=== PATIENT | male | born 1975 | race Caucasian/White ===

== ENCOUNTER 2017-12-02 05:48 | Emergency (ER) | END 2017-12-02 07:20 | disposition left against medical advice (07) ==

== ENCOUNTER 2017-12-04 13:55 | Emergency (ER) | END 2017-12-04 17:40 | disposition left against medical advice (07) ==

== ENCOUNTER 2017-12-05 03:22 | Emergency (ER) | END 2017-12-05 08:32 | disposition left against medical advice (07) ==

== ENCOUNTER 2017-12-09 04:17 | Emergency (ER) | END 2017-12-09 04:38 | disposition home or self-care (01) ==

== ENCOUNTER 2017-12-13 09:51 | Emergency (ER) | END 2017-12-13 11:32 | disposition home or self-care (01) ==

== ENCOUNTER 2017-12-14 04:19 | Emergency (ER) | END 2017-12-14 08:38 | disposition left against medical advice (07) ==

== ENCOUNTER 2017-12-18 22:53 | Emergency (ER) | END 2017-12-19 00:55 | disposition left against medical advice (07) ==

== ENCOUNTER 2017-12-20 02:56 | Emergency (ER) | END 2017-12-20 04:30 | disposition home or self-care (01) ==

== ENCOUNTER 2017-12-21 03:39 | Emergency (ER) | END 2017-12-21 04:05 | disposition left against medical advice (07) ==

== ENCOUNTER 2017-12-22 00:50 | Emergency (ER) | END 2017-12-22 02:51 | disposition left against medical advice (07) ==

== ENCOUNTER 2018-01-01 13:53 | Emergency (ER) | END 2018-01-01 15:19 | disposition left against medical advice (07) ==

== ENCOUNTER 2018-01-02 08:16 | Emergency (ER) | END 2018-01-02 12:08 | disposition left against medical advice (07) ==

== ENCOUNTER 2018-01-05 03:30 | Emergency (ER) | END 2018-01-05 04:00 | disposition home or self-care (01) ==

== ENCOUNTER 2018-01-06 10:42 | Emergency (ER) | END 2018-01-06 12:17 | disposition home or self-care (01) ==

== ENCOUNTER 2018-01-12 03:42 | Emergency (ER) | END 2018-01-12 04:26 | disposition home or self-care (01) ==

== ENCOUNTER 2018-01-20 06:22 | Emergency (ER) | END 2018-01-20 08:10 | disposition left against medical advice (07) ==

== ENCOUNTER 2018-01-23 23:14 | Emergency (ER) | END 2018-01-24 00:12 | disposition left against medical advice (07) ==

== ENCOUNTER 2018-02-01 23:36 | Emergency (ER) | END 2018-02-02 00:49 | disposition left against medical advice (07) ==

== ENCOUNTER 2018-02-11 02:42 | Emergency (ER) | END 2018-02-11 04:08 | disposition left against medical advice (07) ==

== ENCOUNTER 2018-02-14 14:47 | Emergency (ER) | END 2018-02-14 16:20 | disposition left against medical advice (07) ==

== ENCOUNTER 2018-02-16 04:40 | Emergency (ER) | END 2018-02-16 05:30 | disposition home or self-care (01) ==

== ENCOUNTER 2018-02-25 02:14 | Emergency (ER) | END 2018-02-25 02:40 | disposition home or self-care (01) ==

== ENCOUNTER 2018-03-03 11:53 | Emergency (ER) | END 2018-03-03 13:04 | disposition left against medical advice (07) ==

== ENCOUNTER 2018-03-05 01:20 | Emergency (ER) | END 2018-03-05 01:30 | disposition home or self-care (01) ==

== ENCOUNTER 2018-03-21 09:07 | Inpatient (IN) | payer OTHER ==
[~2018-03-21] VITALS: Ht 193 cm; Wt 55.0 kg
[~2018-03-21 09:07] MED LIST: ACET500C5 PO; ASPI81TA52 PO; ATOR40TA68 PO; BENZ200C68 PO; BUS5 PO; CEPH-443 PO; CLIN300C10 PO; D-ME473S2 PO; HALO5TAB23 PO; HYDR-4011 PO; IBUP-1542 PO; IBUP800T48 PO; LISI40TA3 PO; MTF1000T PO; SULF1TAB31 PO; TRAM50TA2 PO
[2018-03-21] MEDS ORDERED: IBUPROFEN 800 MG TAB PO ONE (09:30)
[2018-03-21] MEDS ORDERED: BUSP10TA2 PO (09:49)
[2018-03-21] MEDS ORDERED: SOD CHLORIDE 0.9% 1,000 ML IV STA (09:50)
[2018-03-21] MEDS ORDERED: morphine 4 MG/ML VIAL IV STA (09:53)
--- NOTE | 2018-03-21 11:14 | ERD ---
ER Documentation Chief Complaint Chief Complaint right leg injury x 3 days no KO HPI This is a 43-year-old male who presents to the emergency room for evaluation of left hip pain. The patient states that he slipped and fell approximately 2 days ago denies hitting his head or any loss of consciousness. The patient states that his pain is in the left hip and is been unable to bear weight since this occurred. The patient is a very poor historian and is not answering how he was able to get to the bathroom or feed himself if he was not able to bear weight. He localizes the pain in the left hip and describes as a sharp pain worse with any movement. Patient denies any shortness of breath chest pain nausea vomiting ROS All systems reviewed and are negative except as per history of present illness. Medications Home Meds Reported Medications Buspirone Hcl* (Buspirone Hcl*) 10 Mg Tab, 15 MG PO TID, TAB 03/21/18 Haloperidol* (Haldol*) 5 Mg Tab, 5 MG PO QHS, TAB 10/26/17 Lisinopril* (Lisinopril*) 40 Mg Tablet, 40 MG PO DAILY, #30 TAB 10/26/17 Atorvastatin* (Atorvastatin*) 40 Mg Tablet, 40 MG PO QHS, #30 TAB 10/26/17 Aspirin (Low Dose Aspirin) 81 Mg Tablet.dr, 81 MG PO DAILY, #30 TAB 10/26/17 Metformin* (Glucophage*) 1,000 Mg Tablet, 1000 MG PO BID, #60 TAB 10/17/17 Discontinued Reported Medications Buspirone Hcl* (Buspar*) 5 Mg Tab, 15 MG PO TID, TAB 10/26/17 Discontinued Scripts Ibuprofen* (Motrin*) 800 Mg Tab, 800 MG PO Q6, #20 TAB Prov:JONNIE HERNANDEZ PA-C 02/25/18 Dextromethorphan Hb-Promethazine Hcl* (Promethazine DM* Syrup) 473 Ml Syrup, 5 ML PO Q6 PRN for COUGH, #100 ML Prov:JONNIE HERNANDEZ PA-C 02/25/18 Benzonatate* (Benzonatate*) 200 Mg Capsule, 200 MG PO TID PRN for COUGH, #15 CAP Prov:JONNIE HERNANDEZ PA-C 02/25/18 Ibuprofen* (Motrin*) 800 Mg Tab, 800 MG PO Q6H PRN for PAIN AND OR ELEVATED TEMP, #30 TAB Prov:JEREMIAH PENAC 02/16/18 Clindamycin Hcl* (Clindamycin Hcl*) 300 Mg Capsule, 300 MG PO TID for 10 Days, CAP Prov:JONNIE GEE S. 02/11/18 Sulfamethoxazole/Trimethoprim* (Bactrim Ds* Tablet) 1 Each Tablet, 1 TAB PO BID, #14 TAB Prov:JONINE EGE S. 02/11/18 Ibuprofen* (Motrin*) 600 Mg Tab, 600 MG PO Q6, #30 TAB Prov:JOSE MARTINEZ NP 01/12/18 Acetaminophen* (Tylophen*) 500 Mg Capsule, 1 CAP PO Q6H PRN for PAIN AND OR ELEVATED TEMP, #20 CAP Prov:JOSE MARTINEZ NP 01/05/18 Cephalexin* (Keflex*) 500 Mg Capsule, 500 MG PO QID for 7 Days, CAP Prov:JERICA MOELLERC 01/02/18 Cephalexin* (Keflex*) 500 Mg Capsule, 500 MG PO TID for 7 Days, CAP Prov:RAVI MIRANDAC 12/13/17 Acetaminophen* (Tylophen*) 500 Mg Capsule, 1 CAP PO Q6H PRN for PAIN AND OR ELEVATED TEMP, #20 CAP Prov:RAVI MIRANDAC 12/13/17 Tramadol HCl (Tramadol HCl) 50 Mg Tablet, 50 MG PO Q6 PRN for PAIN, #7 TAB Prov:JOSE MARTINEZ NP 12/09/17 Ibuprofen* (Motrin*) 600 Mg Tab, 600 MG PO Q6, #30 TAB Prov:AYDEN ROGERSC 11/28/17 Hydrocodone/Acetaminophen ([place] 5-325 Tablet) 1 Each Tablet, 1 EACH PO DAILY, #10 TAB Prov:EDWIGE BILL MD 11/08/17 Ibuprofen* (Motrin*) 600 Mg Tab, 600 MG PO Q6H PRN for PAIN AND OR ELEVATED TEMP, #30 TAB Prov:NATHANIEL MCKEON MD 11/04/17 Cephalexin* (Keflex*) 500 Mg Capsule, 500 MG PO QID for 7 Days, CAP Prov:NATHANIEL MCKEON MD 11/04/17 Sulfamethoxazole/Trimethoprim* (Bactrim Ds* Tablet) 1 Each Tablet, 1 TAB PO BID, #14 TAB Prov:NATHANIEL MCKEON MD 11/04/17 Allergies Allergies: Coded Allergies: latex (Unverified Allergy, Unknown, 02/16/18) PMhx/Soc History of Surgery: No Anesthesia Reaction: No Hx Neurological Disorder: No Hx Respiratory Disorders: No Hx Cardiac Disorders: No Hx Psychiatric Problems: No Hx Miscellaneous Medical Probl: No Hx Alcohol Use: No (unknown) Hx Substance Use: No (unknown) Hx Tobacco Use: No (unknown) Physical Exam Vitals Vital Signs Date Temp Pulse Resp B/P (MAP) Pulse Ox O2 O2 Flow FiO2 Time Delivery Rate 03/21/18 97.5 70 18 153/83 97 09:13 (106) Physical Exam INITIAL VITAL SIGNS: Reviewed by me GENERAL: The patient is well developed and appropriate for usual state of health in no apparent distress HEENT: Pupils equal, round, and reactive to light. EOMI. There is no scleral icterus. NECK: C-spine is soft and supple, there is no meningismus. There is no cervical lymphadenopathy. LUNGS: Clear to auscultation bilaterally. There are no rales, wheezes or rhonchi. HEART: Regular rate and rhythm, no murmurs, clicks, rubs or gallops. ABDOMEN: Soft, non-tender, non-distended. There are bowel sounds in all four quadrants. No rebound or guarding. EXTREMITIES: No shortening or external rotation, there is no peripheral cyanosis or edema. No focal swelling or erythema. NEUROLOGICAL: The patient moves all four extremities with 5/5 strength. Cranial nerves II - XII are intact. Normal gait. Alert and oriented SKIN: There is no apparent rash or petechiae. HEME/LYMPHATIC: There is no evidence of excessive bruising or lymphedema. PSYCHIATRIC: The patient does not appear anxious or depressed. Result Diagram: 03/21/18 1029 03/21/18 1029 Results 24 hrs Laboratory Tests Test 03/21/18 10:29 White Blood Count 7.5 10^3/ul Red Blood Count 5.12 10^6/ul Hemoglobin 13.1 g/dl Hematocrit 41.1 % Mean Corpuscular Volume 80.3 fl Mean Corpuscular Hemoglobin 25.6 pg Mean Corpuscular Hemoglobin Concent 31.9 g/dl Red Cell Distribution Width 15.6 % Platelet Count 243 10^3/UL Mean Platelet Volume 10.0 fl Immature Granulocytes % 0.500 % Neutrophils % 69.0 % Lymphocytes % 15.6 % Monocytes % 10.7 % Eosinophils % 3.7 % Basophils % 0.5 % Nucleated Red Blood Cells % 0.0 /100WBC Immature Granulocytes # 0.040 10^3/ul Neutrophils # 5.2 10^3/ul Lymphocytes # 1.2 10^3/ul Monocytes # 0.8 10^3/ul Eosinophils # 0.3 10^3/ul Basophils # 0.0 10^3/ul Nucleated Red Blood Cells # 0.0 10^3/ul Prothrombin Time 13.5 Sec Prothrombin Time Ratio 1.1 INR International Normalized Ratio 1.02 Activated Partial Thromboplast Time 28.0 Sec Sodium Level 142 mmol/L Potassium Level 3.5 mmol/L Chloride Level 101 mmol/L Carbon Dioxide Level 31 mmol/L Anion Gap 10 Blood Urea Nitrogen 14 mg/dl Creatinine 0.55 mg/dl Est Glomerular Filtrat Rate mL/min > 60 mL/min Glucose Level 120 mg/dl Calcium Level 9.7 mg/dl Total Bilirubin 0.9 mg/dl Direct Bilirubin 0.00 mg/dl Indirect Bilirubin 0.9 mg/dl Aspartate Amino Transf (AST/SGOT) 27 IU/L Alanine Aminotransferase (ALT/SGPT) 36 IU/L Alkaline Phosphatase 161 IU/L Troponin I < 0.012 ng/ml Total Protein 7.8 g/dl Albumin 4.2 g/dl Globulin 3.60 g/dl Albumin/Globulin Ratio 1.16 Current Medications Medications Dose Sig/[place] Start Time Status Last (Trade) Ordered Route PRN Stop Time Admin Dose Reason Admin Ibuprofen 800 mg ONCE ONCE 03/21/18 DC 03/21/18 (Motrin) PO 09:30 09:37 03/21/18 09:31 Sodium 1,000 ml @ Q1H STAT 03/21/18 DC 03/21/18 Chloride 1,000 mls/hr IV 09:50 10:40 03/21/18 10:49 Morphine 4 mg ONCE STAT 03/21/18 DC 03/21/18 Sulfate IV 09:53 10:41 (morphine) 03/21/18 09:54 Procedures/MDM X-ray Hip 2V Interpreted by me: Bones: Left intertrochanteric fracture Joints: [No dislocation] Foreign body: [None] Chest X-ray 1V Interpreted by me: Soft Tissue: No acute abnormalities Bones: No acute abnormalities Mediastinum/Cardiac Silhouette/Lungs: [No acute abnormalities] EKG: Rate/Rhythm: Sinus bradycardia QRS, ST, T-waves: [No changes consistent w/ acute ischemia] Impression: Sinus bradycardia This 43-year-old male presents to the ER for evaluation of left hip pain. On my evaluation the patient had no shortening or external rotation of the hip however he was complaining of severe pain and had limited range of motion. I did obtain an x-ray which shows a left-sided intertrochanteric fracture. This patient denies having any previous medical problems however his medical record shows the patient has been seen in the emergency room greater than 40 times this year alone. I have contacted her orthopedic surgeon production engine repairer Dr. Alvarado who states he will evaluate the patient. The patient will be admitted at this time and will be placed on the [facility] floor under the care of Dr. Neely. Critical Care: Excluding all billable procedures Time: 44 minutes Treatments/Evaluations: Close monitoring and treatment of unstable vital signs, cardiorespiratory, and neurologic status, while maintaining tight balance of fluid, respiratory, and cardiac interventions. Departure Diagnosis: Primary Impression: Intertrochanteric fracture of left femur Additional Impressions: Pain of left leg Sinus bradycardia Condition: TORI Squires DO Mar 21, 2018 11:14
[2018-03-21] MEDS ORDERED: ONDANSETRON 4 MG INJ IV PRN ×2 (11:30→12:30)
[2018-03-21] MEDS ORDERED: ACETAMINOPHEN 325 MG TAB PO PRN (11:30)
[2018-03-21] MEDS ORDERED: SOD CHLORIDE 0.45% 1,000 ML IV SCH (12:08)
--- NOTE | 2018-03-21 12:24 | HP ---
Date/Time of Note Date/Time of Note DATE: 03/21/18 TIME: 12:07 Assessment/Plan VTE Prophylaxis Pharmacological prophylaxis: NA/contraindicated Pharm contraindication: surgical contra Lines/Catheters IV Catheter Type (from Nrs): Saline Lock Assessment/Plan Assessment/Plan 43 yo man history of NIDDM presents with L IT hip fracture #Hip fracture - Per XR hip. Pending CT pelvis to further evaluate. - Dr. Alvarado consulted. - IV dilaudid for pain control - NPO, IV fluids. - Patient reports ability to walk up 1 flight of stairs without chest pain or dyspnea, so he has at least 4 METS. - RCRI 0 (diabetes is not insulin-dependent). He is at 0.4% risk for major intraoperative event. - Overall the patient is medically optimized for surgery and needs no further cardiac or medical workup prior to OR. - Will hold aspirin and defer antiplatelet and anticoag management to ortho preference for now. #diabetes - HgbA1C 7.5 - sliding scale insulin - Hold home metformin #Psych disorder - Cont home buspirone and haldol #HTN - Cont home lisinopril #Dyslipidemia - Cont home statin Result Diagram: 03/21/18 1029 03/21/18 1029 HPI/ROS Admit Date/Time Admit Date/Time Mar 21, 2018 Hx of Present Illness Mr. Shields is a homeless 43 yo man with diabetes who presents with L hip IT fracture. On 03/17 he was with a friend cleaning some windows on a ladder or scaffold. He fell off and felt hip pain and was unable to move the hip or walk. He was unable to come into the hospital until today. He is a poor historian and is unable to clarify why he didn't come to the ED sooner. In the ED he wa afebrile, vital signs stable. Labs unremarkable. XR L hip notable for L IT fracture. Dr. Alvarado with orthopedic surgery notified. ROS He denies recent fever, chills, dysphagia, sore throat, SOB, cough, chest pain/pressure/palpitations, diarrhea, constipation, nausea, vomiting, dysuria. He reports he can walk up a flight of stairs without chest pain or pressure. PMH/Family/Social Past Medical History non-insulin dependent diabetes (previously on insulin) dyslipidemia psychiatric disorder, unspecified. Medications Current Medications Ondansetron HCl (Zofran Inj) 4 mg BRIDGE ORDER PRN IV NAUSEA AND/OR VOMITING; Start 03/21/18 at 11:30; Stop 03/22/18 at 11:29 Acetaminophen (Tylenol Tab) 650 mg ER BRIDGE PRN PO MILD PAIN(1-3)OR ELEVATED TEMP; Start 03/21/18 at 11:30; Stop 03/22/18 at 11:29 Coded Allergies: latex (Unverified Allergy, Unknown, 02/16/18) Past Surgical History Mandible fixation after jaw fracture Oct 22 2017. Family History Significant Family History: no pertinent family hx Social History Alcohol Use: occasionally Smoking Status: Light tobacco smoker (estimates 1 pack per month) Drug Use: cocaine (Currently uses marijuna. Formerly used cocaine, meth, and heroin. Denies ever using IV drugs, says he smoked heroin. ), marijuana Exam/Review of Systems Vital Signs Vitals Vital Signs Date Temp Pulse Resp B/P (MAP) Pulse Ox O2 O2 Flow FiO2 Time Delivery Rate 03/21/18 97.5 70 18 153/83 97 09:13 (106) Exam Exam Gen: Well appearing well developed man in no acute distress. Eyes: PERRL, no icterus HEENT: Clear oropharynx. Minimal jaw range of motion. Moist mucous membranes. Neck: Supple, no lymphadenopathy. JVP visible with estimated CVP 7 mmHg Card: Regular rate and rhythm, no murmurs Pulm: Clear to auscultation bilaterally Abd: Soft, nontender, nondistended. Ext: L hip minimal tenderness, minimal deformity. Peripherally neurovascular intact. Skin: Circular discoid esposito on arms and legs symmetrically. JALIL CHERRY MD Mar 21, 2018 12:20
[2018-03-21] MEDS ORDERED: NACL 0.9% 3 ML SYG IV SCH (12:30)
[2018-03-21] MEDS ORDERED: morphine 2 MG INJ IV PRN (12:30)
[2018-03-21] MEDS ORDERED: GLUCOSE GEL 15 GRAM TUBE BUCCAL PRN (13:00)
[2018-03-21] MEDS ORDERED: DEXTROSE 50% 50 ML SYRINGE IV PRN ×2 (13:00)
[2018-03-21] MEDS ORDERED: GLUCAGON 1 MG INJ IM PRN (13:00)
[2018-03-21] MEDS: BUSPIRONE 10 MG TAB PO SCH ×2 (13:00→20:16)
[2018-03-21] MEDS ORDERED: GLUCOSE GEL 15 GRAM TUBE PO PRN ×2 (13:00)
[2018-03-21 13:13] VITALS: BP 160/92; PULSE 58; RESP 18
[2018-03-21 13:33] VITALS: Ht 193 cm; Wt 55.0 kg
--- NOTE | 2018-03-21 13:49 | NUR ---
NURSES NOTES: ADMITTED 43 YO MALE FROM ER FOR C/O SEVERE LEFT HIP PAIN S/P FALL FROM A WINDOW AT A FRIEND'S APARTMENT. PT A/O X4. NO SOB NOTED. PT COMFORTABLE AT REST. RECEIVED CALL FROM DR. REENA Ramos/ ORDER RECEIVED, PLAN FOR SURGERY TOMORROW AT 1100 , TO KEEP PT NPO AFTER MN. DR. CHERRY MADE AWARE.. PT STARTED ON CARB CONTROL DIET , INSTRUCTED TO KEEP NPO AFTER MN. PT VERBALIZED UNDERSTANDING WELL. PT INFORMED RE: PLAN OF CARE AND PAIN MANAGEMENT. PT ORIENTED TO ROOM SETTING, CALL LIGHT USAGE AND NO SMOKING POLICIES. CALL LIGHT WITHIN REACH. SAFETY PRECAUTIONS ESTABLISHED.
[2018-03-21] MEDS: morphine SULFATE/PF (2 MG/2 ML) SYG IV PRN ×2 (14:34→20:15)
--- NOTE | 2018-03-21 18:31 | NUR ---
SHIFT SUMMARY: NO SIGNIFICANT CHANGE OF CONDITION. PAIN MEDICATION GIVEN NEEDED W/ RELIEF. SEEN BY DR. VALLES , IN [place] AT BEDSIDE PT AWARE OF PLAN OF CARE. INSTRUCTED TO KEEP NPO AFTER MN FOR SCHEDULED SURGERY TOMORROW. HOURLY ROUNDING ESTABLISHED, SAFETY PRECAUTIONS MAINTAINED. CALL LIGHT WITHIN REACH. ALL NEEDS ATTENDED AND RENDERED.
[2018-03-21] MEDS: INSULIN ASPART [NOVOLOG] 3 ML PEN SC SCH ×2 (18:34→20:29)
[2018-03-21 20:00] VITALS: BP 131/69; PULSE 69; RESP 18
[2018-03-21] MEDS: ATORVASTATIN 40 MG TAB PO SCH (20:16)
[2018-03-21] MEDS: SENNA TAB PO SCH (20:16)
[2018-03-21] MEDS: HALOPERIDOL 5 MG TAB PO SCH (21:47)
[2018-03-22] VITALS (13 sets, daily range): BP systolic 114–141; BP diastolic 60–83; PULSE 44–76; RESP 9–42
--- NOTE | 2018-03-22 00:54 | CONS ---
DATE OF ADMISSION: 03/21/2018 DATE OF CONSULTATION: 03/21/2018 TYPE OF CONSULTATION: Orthopedic surgical. HISTORY OF PRESENT ILLNESS: The patient is a 43-year-old male, a homeless person who was admitted on 03/21/2018 when he came to the emergency room complaining of painful limit of motion involving his l eft hip. According to the patient, he was cleaning a house on 03/17/2018 when he fell landing on his left hip. At the beginning, he was able to stand up and walk, but because of the increasing pain, floresita tate came to the emergency room. He is known to have multiple medical problems including diabetes mellitus, unspecified kind of psychi atric disorders, dyslipidemia and hypertension. There was tenderness and swelling around the left hip. Range of motion of the left hip was provoking pain and discomfort; however, there were no obvious shortening or abnormal rotation of the left lowe r extremity. There were no signs of neurovascular compromise involving the left lower extremity. DIAGNOSTIC STUDIES: X-rays of the left hip was strongly suggestive of intertrochanteric fracture of the left hip which is undisplaced and CT scan confirms the presence of intertrochanteric fracture of the left hip. DIAGNOSTIC IMPRESSION: Intertrochanteric fracture of the left hip. TREATMENT PLAN: To surgery for open reduction and internal fixation of the left hip fracture. Dictated By: NIECY VALLES MD IK/NTS Conf#: [id number] DID#: [id number] CC: JALIL CHERRY MD;*End*
[2018-03-22] MEDS: ACCU-CHEK XX SCH (02:00)
[2018-03-22] MEDS: morphine SULFATE/PF (2 MG/2 ML) SYG IV PRN ×2 (02:24→08:04)
[2018-03-22] MEDS ORDERED: PANTOPRAZOLE (EC) 40 MG TAB PO SCH (06:00)
--- NOTE | 2018-03-22 06:36 | NUR ---
END OF SHIFT SUMMARY Received patient from AM shift on 03/21 at 1920. Patient is alert and oriented x4. Complained of pain on left hip. Pain is relieved with PRN pain medication. Vital signs WNL. Accucheck done. Insulin administered as ordered. Patient is kept on NPO after midnight. Non weight bearing on left lower extremity. Patient is aware about the ORIF procedure scheduled for today (03/22). Fall precautions initiated. Bed alarm is on, side rails x2, bed in lowest position, call light within reach. No falls during shift. All needs attended. Will endorse to oncoming shift.
[2018-03-22] MEDS: INSULIN ASPART [NOVOLOG] 3 ML PEN SC SCH ×4 (08:00→21:00)
[2018-03-22] MEDS: SENNA TAB PO SCH ×2 (09:00→21:19)
[2018-03-22] MEDS: LISINOPRIL 20 MG TAB PO SCH (09:00)
[2018-03-22] MEDS: BUSPIRONE 10 MG TAB PO SCH ×3 (09:00→21:20)
[2018-03-22] MEDS ORDERED: INFLUENZA VIRUS VACCINE 0.5 ML (DISPENSING) IM* ONE (10:00)
--- NOTE | 2018-03-22 12:04 | HPN ---
Date/Time of Note Date/Time of Note DATE: 03/22/18 TIME: 12:04 Interval H&P Admission Note Pt. seen H&P reviewed: No system changes LUNA VALLES MD Mar 22, 2018 12:04
--- NOTE | 2018-03-22 12:30 | PREAC ---
Date/Time of Note Date/Time of Note DATE: 03/22/18 TIME: 12:28 Anesthesia Eval and Record Evaluation Time Pre-Procedure Interview DATE: 03/22/18 TIME: 12:28 Age 43 Sex male NPO: 8 hrs Preoperative diagnosis Lt Hip fracture Planned procedure Lt Hip ORIF Past Medical History Past Medical History: Includes Cardio: HTN, Dyslipidemia Endo: Diabetes Surgery & Anesthesia Issues No known issue Meds Anticoagulation: Yes Beta Yoli within 24 hr: No Reason Beta Yoli not given: Pt. not on B-Yoli Reported Medications Buspirone Hcl* (Buspirone Hcl*) 10 Mg Tab, 15 MG PO TID, TAB 03/21/18 Haloperidol* (Haldol*) 5 Mg Tab, 5 MG PO QHS, TAB 10/26/17 Lisinopril* (Lisinopril*) 40 Mg Tablet, 40 MG PO DAILY, #30 TAB 10/26/17 Atorvastatin* (Atorvastatin*) 40 Mg Tablet, 40 MG PO QHS, #30 TAB 10/26/17 Aspirin (Low Dose Aspirin) 81 Mg Tablet.dr, 81 MG PO DAILY, #30 TAB 10/26/17 Metformin* (Glucophage*) 1,000 Mg Tablet, 1000 MG PO BID, #60 TAB 10/17/17 Discontinued Reported Medications Buspirone Hcl* (Buspar*) 5 Mg Tab, 15 MG PO TID, TAB 10/26/17 Discontinued Scripts Ibuprofen* (Motrin*) 800 Mg Tab, 800 MG PO Q6, #20 TAB Prov:JONNIE HERNANDEZ PA-C 02/25/18 Dextromethorphan Hb-Promethazine Hcl* (Promethazine DM* Syrup) 473 Ml Syrup, 5 ML PO Q6 PRN for COUGH, #100 ML Prov:JONNIE HERNANDEZ PA-C 02/25/18 Benzonatate* (Benzonatate*) 200 Mg Capsule, 200 MG PO TID PRN for COUGH, #15 CAP Prov:JONNIE HERNANDEZ PA-C 02/25/18 Ibuprofen* (Motrin*) 800 Mg Tab, 800 MG PO Q6H PRN for PAIN AND OR ELEVATED TEMP, #30 TAB Prov:JEREMIAH PENA PA-C 02/16/18 Clindamycin Hcl* (Clindamycin Hcl*) 300 Mg Capsule, 300 MG PO TID for 10 Days, CAP Prov:JONNIE GEE S. 02/11/18 Sulfamethoxazole/Trimethoprim* (Bactrim Ds* Tablet) 1 Each Tablet, 1 TAB PO BID, #14 TAB Prov:JONNIE GEE S. 02/11/18 Ibuprofen* (Motrin*) 600 Mg Tab, 600 MG PO Q6, #30 TAB Prov:JOSE MARTINEZ NP 01/12/18 Acetaminophen* (Tylophen*) 500 Mg Capsule, 1 CAP PO Q6H PRN for PAIN AND OR ELEVATED TEMP, #20 CAP Prov:JOSE MARTINEZ NP 01/05/18 Cephalexin* (Keflex*) 500 Mg Capsule, 500 MG PO QID for 7 Days, CAP Prov:JERICA MOELLER-C 01/02/18 Cephalexin* (Keflex*) 500 Mg Capsule, 500 MG PO TID for 7 Days, CAP Prov:RAVI MIRANDA PA-C 12/13/17 Acetaminophen* (Tylophen*) 500 Mg Capsule, 1 CAP PO Q6H PRN for PAIN AND OR ELEVATED TEMP, #20 CAP Prov:RAVI MIRANDA PA-C 12/13/17 Tramadol HCl (Tramadol HCl) 50 Mg Tablet, 50 MG PO Q6 PRN for PAIN, #7 TAB Prov:JOSE MARTINEZ NP 12/09/17 Ibuprofen* (Motrin*) 600 Mg Tab, 600 MG PO Q6, #30 TAB Prov:AYDEN ROGERS PA-C 11/28/17 Hydrocodone/Acetaminophen ([place] 5-325 Tablet) 1 Each Tablet, 1 EACH PO DAILY, #10 TAB Prov:EDWIGE BILL MD 11/08/17 Ibuprofen* (Motrin*) 600 Mg Tab, 600 MG PO Q6H PRN for PAIN AND OR ELEVATED TEMP, #30 TAB Prov:NATHANIEL MCKEON MD 11/04/17 Cephalexin* (Keflex*) 500 Mg Capsule, 500 MG PO QID for 7 Days, CAP Prov:NATHANIEL MCKEON MD 11/04/17 Sulfamethoxazole/Trimethoprim* (Bactrim Ds* Tablet) 1 Each Tablet, 1 TAB PO BID, #14 TAB Prov:NATHANIEL MCKEON MD 11/04/17 Current Medications Sodium Chloride 1,000 ml @ 100 mls/hr Q10H IV ; Start 03/21/18 at 12:08; Status Hold IV Flush (NS 3 ml) 3 ml PER PROTOCOL IV ; Start 03/21/18 at 12:30 Ondansetron HCl (Zofran Inj) 4 mg Q6H PRN IV NAUSEA AND/OR VOMITING; Start 1 at 12:30 Pantoprazole (Protonix Tab) 40 mg DAILY@06 PO ; Start 03/22/18 at 06:00 Senna (Senokot) 2 tab BID PO Last administered on 03/21/18at 20:16; Admin Dose 2 TAB; Start 03/21/18 at 21:00 Diagnostic Test (Pha) (Accu-Chek) 1 ea 02 XX ; Start 03/22/18 at 02:00 Insulin Aspart (Novolog Insulin Pen) NOVOLOG *MODERATE* ALGORITHM WITH MEALS BEDTIME SC Last administered on 03/21/18at 20:29; Admin Dose 1 UNIT; Start 03/21/18 at 18:00 Atorvastatin Calcium (Lipitor) 40 mg QHS PO Last administered on 03/21/18at 20:16; Admin Dose 40 MG; Start 03/21/18 at 21:00 Buspirone HCl (Buspar) 15 mg TID PO Last administered on 03/21/18at 20:16; Admin Dose 15 MG; Start 03/21/18 at 13:00 Haloperidol (Haldol) 5 mg QHS PO Last administered on 03/21/18at 21:47; Admin Dose 5 MG; Start 03/21/18 at 21:00 Lisinopril (Zestril) 40 mg DAILY PO ; Start 03/22/18 at 09:00 Miscellaneous Information 1 ea NOTE XX ; Start 03/21/18 at 13:00 Glucose (Glutose) 15 gm Q15M PRN PO DECREASED GLUCOSE; Start 03/21/18 at 13:00 Glucose (Glutose) 22.5 gm Q15M PRN PO DECREASED GLUCOSE; Start 03/21/18 at 13:00 Dextrose (D50w Syringe) 25 ml Q15M PRN IV DECREASED GLUCOSE; Start 03/21/18 at 13:00 Dextrose (D50w Syringe) 50 ml Q15M PRN IV DECREASED GLUCOSE; Start 03/21/18 at 13:00 Glucagon (Glucagen) 1 mg Q15M PRN IM DECREASED GLUCOSE; Start 03/21/18 at 13:00 Glucose (Glutose) 15 gm Q15M PRN BUCCAL DECREASED GLUCOSE; Start 03/21/18 at 13:00 Morphine Sulfate (morphine SULFATE (PF)) 4 mg Q4H PRN IV SEVERE PAIN LEVEL 7-10 Last administered on 03/22/18at 08:04; Admin Dose 4 MG; Start 03/21/18 at 15:00 Meds reviewed: Yes Allergies Coded Allergies: latex (Unverified Allergy, Unknown, 02/16/18) Allergies Reviewed: Yes Labs/Studies Labs Reviewed: Reviewed by anesthesiologist Result Diagram: 03/22/18 0523 03/22/1823 Laboratory Tests 03/22/18 05:23 test: N/A Studies: ECG Pre-procedure Exam Last vitals Vital Signs Date Temp Pulse Resp B/P (MAP) Pulse Ox O2 O2 Flow FiO2 Time Delivery Rate 03/22/18 98.0 58 18 125/83 99 Room Air 07:34 (97) Airway: Adequate mouth opening, Adequate thyromental dist Mallampati: Mallampati II Teeth: Normal Lung: Normal Heart: Normal ASA Physical Status ASA physical status: 3 Emergency: E Planned Anesthetic General/MAC: LMA Neuraxial: Spinal Planned Pain Management Sub-arachniod narcotics, Parenteral pain med Pre-operative Attestations Prior to commencing anesthesia and surgery, the patient was re-evaluated, there was verification of: *The patient's identity *The results of appropriate recent lab work and preoperative vital signs *The above evaluation not changing prior to induction *Anesthetic plan, risk benefits, alternative and complications discussed with patient/family; questions answered; patient/family understands, accepts and wishes to proceed. MICHEL CALDERON MD Mar 22, 2018 12:30
[2018-03-22] MEDS ORDERED: MIDAZOLAM 1 MG/ML 2 ML INJ ONE (12:36)
[2018-03-22] MEDS ORDERED: morphine SULFATE/PF (10 MG/10 ML) INJ ONE (12:36)
[2018-03-22] MEDS ORDERED: ROCURONIUM 50 MG INJ ONE (14:21)
[2018-03-22] MEDS ORDERED: ONDANSETRON 4 MG INJ ONE (14:21)
[2018-03-22] MEDS ORDERED: LIDOCAINE 2% (SDV) 5 ML INJ ONE (14:21)
[2018-03-22] MEDS ORDERED: CEFAZOLIN 1 GM INJ ONE (14:21)
[2018-03-22] MEDS ORDERED: PROPOFOL 20 ML ONE (14:21)
--- NOTE | 2018-03-22 14:26 | NUR ---
RECEIVED FROM OR VIA BED S/P ORIF LT. HIP. DRESSING DRY AND INTACT.IV INFUSING RT.AC #20 ANGIOCATH. LT. HIP XRAY DONE. SCD"S ON SAWYER.
[2018-03-22] MEDS ORDERED: HYDROmorphONE 1 MG/5 ML IV SYRINGE IV PRN ×2 (14:30)
[2018-03-22] MEDS ORDERED: DIPHENHYDRAMINE 50 MG INJ IV PRN (14:30)
[2018-03-22] MEDS ORDERED: MEPERIDINE 25 MG INJ IV PRN (14:30)
[2018-03-22] MEDS ORDERED: morphine 4 MG/ML VIAL IV PRN (14:30)
[2018-03-22] MEDS ORDERED: NACL 0.9% 3 ML SYG IV SCH (14:30)
[2018-03-22] MEDS ORDERED: FENTAnyl 50 MCG/ML VIAL IV PRN (14:30)
[2018-03-22] MEDS ORDERED: ONDANSETRON 4 MG INJ IV PRN (14:30)
--- NOTE | 2018-03-22 14:32 | PAC ---
Date/Time of Note Date/Time of Note DATE: 03/22/18 TIME: 14:31 Post-Anesthesia Notes Post-Anesthesia Note Last documented vital signs Vital Signs Date Temp Pulse Resp B/P (MAP) Pulse Ox O2 O2 Flow FiO2 Time Delivery Rate 03/22/18 98.0 58 18 125/83 99 Room Air 07:34 (97) Activity: WNL Respiratory function: WNL Cardiovascular function: WNL Mental status: Baseline Pain reasonably controlled: Yes Hydration appropriate: Yes Nausea/Vomiting absent: Yes Comments BP:128/65, pulse:78, spo2;100%, T:98,2 MICHEL CALDERON MD Mar 22, 2018 14:32
--- NOTE | 2018-03-22 14:43 | SIPON ---
Date/Time of Note Date/Time of Note DATE: 03/22/18 TIME: 14:35 Operative Report Preoperative Diagnosis intertrochanteric fracture right hip Postoperative Diagnosis same Operation/Procedure Performed [facility]. [facility]. of intertrochaeteric fracture of left hip f. Surgeon see signature line assistant professor surgical technology none Anesthesia: general Estimated blood loss: 10 - 50 ml's Transfusion Required none Specimen none Grafts/Implants gamma nail Complications none LUNA VALLES MD Mar 22, 2018 14:43
[2018-03-22] MEDS ORDERED: NALOXONE (0.4 MG/ML) INJ IV PRN (15:00)
--- NOTE | 2018-03-22 15:00 | NUR ---
MOM BROUGHT AT BEDSIDE TO VISIT.
--- NOTE | 2018-03-22 15:26 | NUR ---
REPORT GIVEN TO NASEEM MCKEON
--- NOTE | 2018-03-22 15:45 | NUR ---
TRANSPORTED TO AT 1545 HRS. ACCOMPANIED BY TRANSPORT IN STABLE CONDITION.. DRESSING TO LT. HIP DRY AND INTACT. MOVEMENT AND SENSATION PROGRESSED TO KNEE AREA. IV REMAINS PATENT.
--- NOTE | 2018-03-22 16:25 | PN ---
Date/Time of Note Date/Time of Note DATE: 03/22/18 TIME: 16:22 Assessment/Plan VTE Prophylaxis Risk score (from Ns)>0 risk: 6 SCD applied (from Ns): Yes Pharmacological prophylaxis: NA/contraindicated Pharm contraindication: low risk/ambulating Lines/Catheters IV C[facility]ter Type (from [facility] Peripheral IV Assessment/Plan Assessment/Plan 43 yo man history of NIDDM presents with L IT hip fracture #Hip fracture - Per XR hip and CT pelvix - s/p operative reduction, internal fixation by Dr Alvarado 03/22 - Resume diet - Anticoagulation per ortho - PT #diabetes - HgbA1C 7.5 - sliding scale insulin - Hold home metformin #Psych disorder - Cont home buspirone and haldol #HTN - Cont home lisinopril #Dyslipidemia - Cont home statin Result Diagram: 03/22/18 0523 03/22/18 0523 Results 24hrs Laboratory Tests Test 03/21/18 17:58 03/21/18 20:24 03/21/18 22:38 03/22/18 02:02 Bedside Glucose 149 201 217 Creatine Kinase 136 Creatine Kinase 2.9 Index Creatinine 3.91 H Kinase MB (Mass) Troponin I < 0.012 Test 03/22/18 05:23 03/22/18 07:22 03/22/18 15:26 White Blood 6.5 Count Red Blood Count 4.74 Hemoglobin 12.1 L Hematocrit 37.6 L Mean Corpuscular 79.3 L Volume Mean Corpuscular 25.5 L Hemoglobin Mean Corpuscular 32.2 Hemoglobin Kathie nt Red Cell 15.8 H Distribution Width Platelet Count 229 Mean Platelet 10.3 Volume Immature 0.300 Granulocytes % Neutrophils % 51.5 Lymphocytes % 28.3 Monocytes % 12.8 H Eosinophils % 6.0 Basophils % 1.1 Nucleated Red 0.0 Blood Cells % Immature 0.020 Granulocytes # Neutrophils # 3.3 Lymphocytes # 1.8 Monocytes # 0.8 Eosinophils # 0.4 Basophils # 0.1 Nucleated Red 0.0 Blood Cells # Sodium Level 139 Potassium Level 3.9 Chloride Level 105 Carbon Dioxide 27 Level Anion Gap 7 Blood Urea 17 Nitrogen Creatinine 0.74 Est Glomerular > 60 Filtrat Rate mL/min Glucose Level 173 Hemoglobin A1c 7.7 H Calcium Level 9.1 Phosphorus Level 4.5 Magnesium Level 1.7 Total Bilirubin 0.3 Direct Bilirubin 0.00 Indirect 0.3 Bilirubin Aspartate Amino 20 Transf (AST/SGOT ) Alanine 26 Aminotransferase (ALT/SGPT) Alkaline 134 H Phosphatase Total Protein 7.1 Albumin 3.5 Globulin 3.60 H Albumin/Globulin 0.97 Ratio Triglycerides 72 Level Cholesterol 135 Level LDL Cholesterol, 80 Calculated HDL Cholesterol 41 Cholesterol/HDL 3.2 Ratio Thyroid 1.340 Stimulating Hormone (TSH) Bedside Glucose 149 146 Subjective 24 Hr Interval Summary Free Text/Dictation Patient taken to OR this afternoon for IT pinning. Afterwards transferred back to room in stable condition. Exam/Review of Systems Vital Signs Vitals Vital Signs Date Temp Pulse Resp B/P (MAP) Pulse Ox O2 O2 Flow FiO2 Time Delivery Rate 03/22/18 54 9 141/67 100 Room Air 15:10 (91) 03/22/18 98.0 07:34 Intake and Output 03/21/18 03/21/18 03/22/18 1515:00 23:00 07:00 IntakeIntake Total 600 ml 1360 ml OutputOutput Total 1600 ml 950 ml BalanceBalance 600 ml -240 ml -950 ml Exam Patient in OR Medications Medications Current Medications Ondansetron HCl (Zofran Inj) 4 mg Q6H PRN IV NAUSEA AND/OR VOMITING; Start 03/21/18 at 12:30 Senna (Senokot) 2 tab BID PO Last administered on 03/21/18 20:16; Admin Dose 2 TAB; Start 03/21/18 at 21:00 Diagnostic Test (Pha) (Accu-Chek) 1 ea 02 XX ; Start 03/22/18 at 02:00 Insulin Aspart (Novolog Insulin Pen) NOVOLOG *MODERATE* ALGORITHM WITH MEALS BEDTIME SC Last administered on 03/21/18 20:29; Admin Dose 1 UNIT; Start 03/21/18 at 18:00 Atorvastatin Calcium (Lipitor) 40 mg QHS PO Last administered on 03/21/18 20:16; Admin Dose 40 MG; Start 03/21/18 at 21:00 Buspirone HCl (Buspar) 15 mg TID PO Last administered on 03/21/18 20:16; Admin Dose 15 MG; Start 03/21/18 at 13:00 Haloperidol (Haldol) 5 mg QHS PO Last administered on 03/21/18 21:47; Admin Dose 5 MG; Start 03/21/18 at 21:00 Lisinopril (Zestril) 40 mg DAILY PO ; Start 03/22/18 at 09:00 Miscellaneous Information 1 ea NOTE XX ; Start 03/21/18 at 13:00 Glucose (Glutose) 15 gm Q15M PRN PO DECREASED GLUCOSE; Start 03/21/18 at 13:00 Glucose (Glutose) 22.5 gm Q15M PRN PO DECREASED GLUCOSE; Start 03/21/18 at 13:00 Dextrose (D50w Syringe) 25 ml Q15M PRN IV DECREASED GLUCOSE; Start 03/21/18 at 13:00 Dextrose (D50w Syringe) 50 ml Q15M PRN IV DECREASED GLUCOSE; Start 03/21/18 at 13:00 Glucagon (Glucagen) 1 mg Q15M PRN IM DECREASED GLUCOSE; Start 03/21/18 at 13:00 Glucose (Glutose) 15 gm Q15M PRN BUCCAL DECREASED GLUCOSE; Start 03/21/18 at 13:00 Hydromorphone HCl (Dilaudid) 0.2 mg PACU PRN IV MILD PAIN LEVEL 1-3; Start 03/22/18 at 14:30; Stop 03/22/18 at 19:00 Hydromorphone HCl (Dilaudid) 0.4 mg PACU PRN IV MODERATE PAIN LEVEL 4-6; Start 03/22/18 at 14:30; Stop 03/22/18 at 19:00 Fentanyl (Sublimaze) 25 mcg PACU ORDER PRN IV MILD PAIN LEVEL 1-3; Start 03/22/18 at 14:30; Stop 03/22/18 at 19:00 Ondansetron HCl (Zofran Inj) 4 mg PACU ORDER PRN IV NAUSEA AND/OR VOMITING; Start 03/22/18 at 14:30; Stop 03/22/18 at 19:00 Meperidine HCl (Demerol) 25 mg PACU ORDER PRN IV POST OPERATIVE SHIVERING; Start 03/22/18 at 14:30; Stop 03/22/18 at 19:00 Diphenhydramine HCl (Benadryl) 25 mg PACU ORDER PRN IV PRURITUS; Start 03/22/18 at 14:30; Stop 03/22/18 at 19:00 Sodium Chloride 1,000 ml @ 80 mls/hr [id number] IV ; Start 03/22/18 at 14:18 Cefazolin Sodium/ Dextrose 50 ml @ 100 mls/hr Q8H IVPB ; Start 03/22/18 at 16:00; Stop 03/23/18 at 08:29 Pantoprazole (Protonix Tab) 40 mg DAILY@06 PO ; Start 03/23/18 at 06:00 IV Flush (NS 3 ml) 3 ml per protocol IV ; Start 03/22/18 at 14:30 Enoxaparin Sodium (Lovenox) 40 mg DAILY SC ; Start 03/23/18 at 09:00 Morphine Sulfate (morphine) 3 mg Q3H PRN IV SEVERE PAIN LEVEL 7-10; Start 03/22/18 at 14:30 Acetaminophen/ Hydrocodone Bitart ([place] (5/325)) 1 tab Q3H PRN PO MODERATE PAIN LEVEL 4-6; Start 03/22/18 at 14:30 Naloxone HCl (Narcan) 0.2 mg Q2M PRN IV DECREASED REPIRATORY RATE; Start 03/22/18 at 15:00; Stop 03/23/18 at 14:59 Miscellaneous Information (* Miscellaneous Pharmacy Order) DURAMORPH: 0.2 MG SPI... GIVEN NEURAXIAL XX ; Start 03/22/18 at 15:00; Stop 03/23/18 at 12:45 JALIL CHERRY MD Mar 22, 2018 16:24
--- NOTE | 2018-03-22 16:38 | OPR ---
DATE OF OPERATION: 03/22/2018 PREOPERATIVE DIAGNOSIS: Intertrochanteric fracture of the left hip. POSTOPERATIVE DIAGNOSIS: Intertrochanteric fracture of the left hip. OPERATION PERFORMED: Open reduction and internal fixation of the intertrochanteric fracture of the l eft hip. ANESTHESIA: General anesthesia. SURGEON: Nieyc Valles MD PROCEDURE AND FINDINGS: Under anesthesia, the patient was placed in supine position utilizing fractu re table and under fluoroscopic monitoring, manipulative reduction of the left hip was carried out un til an acceptable alignment could be achieved. The usual prep and drape was done exposing the left hip. The tip of the greater trochanter was expos ed through the lateral small longitudinal incision. After opening fascia chevy, a guide drill was int roduced into the intramedullary canal through the tip of the greater trochanter and after confirming satisfactory position of the guide drill, opening was enlarged with the cannulated drill and the nichol cted gamma nail in the size of 11 mm x 180 mm with the 125-degree angle was inserted into the intrame dullary canal. After confirming satisfactory alignment of the position, a guide pin for the lag scre w was properly positioned and the measurement revealed that the length of the lag screw should be 105 mm. After reaming along the guide pin, selected lag screw in the size of 105 mm was screwed in. Ag ain after confirming the alignment of the fracture and position of the lag screw, the lag screw was p roperly locked. Finally in order to stabilize the entire system further, 1 locking screw was inserte d into the static position. The patient tolerated the entire procedure very well and after irrigatio n and hemostasis, closure of the incision was carried out using 0 Vicryl for muscle and fascia and 2- 0 Vicryl for subcutaneous tissues. Final skin closure was carried out with skin brenna. The patien t tolerated the entire procedure very well and was sent to the recovery room in good condition. Dictated By: NIECY VALLES MD IK/NTS Conf#: [id number] DID#: [id number] CC: JALIL CHERRY MD;*EndCC*
[2018-03-22] MEDS: SOD CHLORIDE 0.9% 1,000 ML IV SCH (16:42)
[2018-03-22] MEDS: CEFAZOLIN 2 GM/50 ML (PMX) 50 ML IVPB SCH (16:42)
[2018-03-22] MEDS: ATORVASTATIN 40 MG TAB PO SCH (21:00)
[2018-03-22] MEDS: HALOPERIDOL 5 MG TAB PO SCH (21:19)
[2018-03-23] MEDS: CEFAZOLIN 2 GM/50 ML (PMX) 50 ML IVPB SCH ×2 (00:28→08:49)
[2018-03-23] MEDS: ACCU-CHEK XX SCH (01:56)
[2018-03-23 02:00] VITALS: BP 166/91; PULSE 60; RESP 18
[2018-03-23] MEDS: SOD CHLORIDE 0.9% 1,000 ML IV SCH (02:48)
[2018-03-23] MEDS: PANTOPRAZOLE (EC) 40 MG TAB PO SCH (06:00)
[2018-03-23 07:35] VITALS: BP 152/82; PULSE 80; RESP 18
--- NOTE | 2018-03-23 07:39 | NUR ---
End of Shift Summary: S/P Open Reduction and Internal Fixation Left Hip Fx on 03/22/[address] Alvarado. Pt is A&O x4. Vital signs within normal limits. No acute changes. Respiratory and hemodynamics remain stable. Patient denies chest pain, palpitations, shortness of breath, nausea, vomiting, headache, cough, or changes in bowel/bladder habits. Pt tolerated carb controlled diet. IV site is intact and asystematic. IV fluids and IVPB infusing as ordered. Pt is bedrest status, not cleared by PT yet. Pt using urinal and bedpan. Last BM on 03/22/ Pt denies pain throughout the shift. Pt received spinal block. Dressing to left hip has small to moderate drainage. Surgical dressing in place. Drainage circled. Safety precautions maintained throughout the shift. Bed in lowest position and bed alarm activated. Call light within reach. Hourly rounding rendered. All needs met.
[2018-03-23] MEDS: INSULIN ASPART [NOVOLOG] 3 ML PEN SC SCH ×4 (08:00→20:20)
[2018-03-23] MEDS: BUSPIRONE 10 MG TAB PO SCH ×3 (08:49→20:22)
[2018-03-23] MEDS: LISINOPRIL 20 MG TAB PO SCH (08:50)
[2018-03-23] MEDS: SENNA TAB PO SCH ×2 (08:50→20:22)
[2018-03-23] MEDS: ENOXAPARIN 40 MG/0.4 ML SYG SC SCH (09:28)
--- NOTE | 2018-03-23 11:34 | NUR ---
PT EVALUATION , Therapy day number 1 Evaluation Start Time 11:00 Evaluation Total Time 0 min Subjective Current complaint of pain Pain Scale NUMERIC Pain Intensity 3 (0-10) Patient Stated Goal for Pain Relief 0 (0-10) Pain Level Comment LT HIP Pre Treatment Vital Signs Stable Yes Exercise Assessment Label Bilat Lower Extremity Exercise Type Active ROM Additional Exercise Comments AP, KNEE FLEX, EXT . Supine to Sit Contact Guard Assist Transfer Sit to Stand Ability Contact Guard Assist Bed Mobility Sit to Supine Contact Guard Assist Bed Transfer Ability Contact Guard Assist Chair Transfer Ability Contact Guard Assist Toileting Ability Contact Guard Assist Sitting Tolerance 15 min Patient uses wheelchair Not Applicable Gait Assist Levels Minimum Assist Assistive Devices Front Wheel Walker Ambulation Distance 100 feet Additional Gait Comments LLE EXT, ROTATED , MILD ANTALGIC GAIT , DECREWD W,B ON LLE . Weight Bearing Assessment Label Left Lower Extremity Weight Bearing Status Weight Bearing as Tonio Additional Stairs Assist Comments TBA Static Sitting Balance Good Dynamic Sitting Balance Good Standing Static Balance Good Dynamic Standing Balance Fair plus Additional Balance Assessments Comments W/FWW Safety Judgement Fair Equipment Present A pump IV pump Post Treatment Pain Intensity 3 0-10 Variance Documentation P/S SEE PT NOTE . Additional Post Treatment Comment VERY IMPULSIVE DURING GAIT TR W/FWW . PT Technical Record Comment PT EVALUATION . S: RN CLEARED , PATIENT AGREEABLE , PATIENT ALERT AND ORIENTED TO SELF, SITUATION , VERY DEPRESS , AND HSILPA IMPULSIVE DURING GAIT TR W/FWW . A: PATIENT IS A 43 Y/O MALE WITH PMH: HTN , PSYCH DISORDER , DM , HOME LESS , DUE TO MECHANICAL FALL SUSTAINED INTERTROCHANTERIC FRACTURE OF THE LT HIP AND ON 03/22/18 UNDERWENT ORIF LT HIP, PATIENT FOUND IN BED , INSTRUCTED HIM IN SAFETY, FALL PRECAUTION M ABLE TO PERFORM A/ROM BLE'S , P/S SEE PT NOTE FOR PATIENT'S FUNCTIONAL STATUS , GAIT TR W/FWW PERFORMED WITH MIN A , PATIENT HAS ABNORMAL GAIT PATTERN , LLE EXTERNALLY ROTATED , MILD LT ANTALGIC GAIT, ALSO DECREASED WEIGHT BEARING ON LLE , PATIENT VERY IMPULSIVE DURING GAIT TR W/FWW , REQUIRES CONSTANT VC'S FOR SAFETY , FALL PRECAUTION GAIT NORMALIZATION AND HEEL TO TOE GAIT PATTERN , PATIENT RETURNED BACK TO BED CGA , VS STABLE , TOLERATED TREATMENT WELL , PATIENT IS CLEARED TO AMBULATE WITH NSG STAFF , RN NOTIFIED PATIENT'S PARTICIPATION IN PT SESSION . A: PATIENT IS HOMELESS , HAS BEEN FUNCTIONAL AND IND.AMBULATORY WITHOUT AD PRIOR TO SURGERY , PT RECOMMEND , SNF/REHAB PLACEMENT ONCE CLEARED BY MD . P: PT BID X6 , DAILY X1 ( THERA EXE'S , TRANSFER TR, GAIT TR W/FWW WBAT ON LLE , STAIR TR , PATIENT EDUCATION ) .
--- NOTE | 2018-03-23 12:50 | PDOCDIS ---
Discharge Instructions CONDITION [id number] Patient Condition: [id number] Stable HOME CARE INSTRUCTIONS: [id number] Special Diet: [id number] carb controlled ACTIVITY: [id number] Activity Restrictions: [id number] Slowly Increase Activity Rest between Activity Avoid heavy lifting Weight Bearing [id number] Bathing Restrictions: [id number] Make sure you cover your dressing when you shower. FOLLOW UP/APPOINTMENTS Follow-up Plan Please follow-up orthopedic surgery team in the clinic in 2 weeks, Dr. Alvarado. Please do not disturb your dressing in the meantime. He will most likely see you and take your brenna out in the clinic then in 2 weeks, and consider repeat x-rays at that time. RUSTY HUERTA. Mar 23, 2018 12:50
[2018-03-23] MEDS ORDERED: ASPI325T32 PO (12:51)
--- NOTE | 2018-03-23 12:55 | DS ---
Date/Time of Note Date/Time of Note DATE: 03/23/18 TIME: 12:52 Discharge Summary Admission/Discharge Info Admit Date/Time Mar 21, 2018 at 11:10 Discharge Date/Time Discharge Diagnosis #Hip fracture-status post orthopedic surgical repair of this #diabetes #Psych disorder - Cont home buspirone and haldol #HTN - Cont home lisinopril #Dyslipidemia - Cont home statin Patient Condition: Stable Procedures DATE OF OPERATION: 03/22/2018 PREOPERATIVE DIAGNOSIS: Intertrochanteric fracture of the left hip. POSTOPERATIVE DIAGNOSIS: Intertrochanteric fracture of the left hip. OPERATION PERFORMED: Open reduction and internal fixation of the intertrochanteric fracture of the left hip. Hx of Present Illness homeless 43 yo man with diabetes who presents with L hip IT fracture. On 03/17 he was with a friend cleaning some windows on a ladder or scaffold. He fell off and felt hip pain and was unable to move the hip or walk. He was unable to come into the hospital until today. He is a poor historian and is unable to clarify why he didn't come to the ED sooner. In the ED he wa afebrile, vital signs stable. Labs unremarkable. XR L hip notable for L IT fracture. Dr. Alvarado with orthopedic surgery notified. Hospital Course So patient was admitted, seen by orthopedic surgery team. He went underwent OR IF of the left hip. Patient tolerated the procedure well. Afterwards he received pain control medications, work and physical therapy. Vital signs were stable on the day of discharge. He was able to ablate with assistance, tolerated p.o. diet. He will be able to go home today after being cleared by orthopedic surgery team. A1c was found to be 7.5. Sugars remained stable with appropriate insulin regimen while patient was here in the hospital. He will need to follow-up with ortho in 2 weeks. He will likely need front wheel walker as well. See below for full list of discharge medications. Home Meds Active Scripts Aspirin* (Aspirin* EC) 325 Mg Tab, 325 MG PO DAILY, #30 TAB 5 Refills Prov:RUSTY HUERTA 03/23/18 Reported Medications Buspirone Hcl* (Buspirone Hcl*) 10 Mg Tab, 15 MG PO TID, TAB 03/21/18 Haloperidol* (Haldol*) 5 Mg Tab, 5 MG PO QHS, TAB 8/5/18 Lisinopril* (Lisinopril*) 40 Mg Tablet, 40 MG PO DAILY, #30 TAB 10/26/17 Atorvastatin* (Atorvastatin*) 40 Mg Tablet, 40 MG PO QHS, #30 TAB 10/26/17 Metformin* (Glucophage*) 1,000 Mg Tablet, 1000 MG PO BID, #60 TAB 10/17/17 Discontinued Reported Medications Aspirin (Low Dose Aspirin) 81 Mg Tablet.dr, 81 MG PO DAILY, #30 TAB 10/26/17 Buspirone Hcl* (Buspar*) 5 Mg Tab, 15 MG PO TID, TAB 10/26/17 Discontinued Scripts Ibuprofen* (Motrin*) 800 Mg Tab, 800 MG PO Q6, #20 TAB Prov:JONNIE HERNANDEZ PA-C 02/25/18 Dextromethorphan Hb-Promethazine Hcl* (Promethazine DM* Syrup) 473 Ml Syrup, 5 ML PO Q6 PRN for COUGH, #100 ML Prov:JONNIE HERNANDEZ PA-C 02/25/18 Benzonatate* (Benzonatate*) 200 Mg Capsule, 200 MG PO TID PRN for COUGH, #15 CAP Prov:JONNIE HERNANDEZ PA-C 02/25/18 Ibuprofen* (Motrin*) 800 Mg Tab, 800 MG PO Q6H PRN for PAIN AND OR ELEVATED TEMP, #30 TAB Prov:JEREMIAH PENA PA-C 02/16/18 Clindamycin Hcl* (Clindamycin Hcl*) 300 Mg Capsule, 300 MG PO TID for 10 Days, CAP Prov:JONNIE GEE 02/11/18 Sulfamethoxazole/Trimethoprim* (Bactrim Ds* Tablet) 1 Each Tablet, 1 TAB PO BID, #14 TAB Prov:JONNIE GEE 02/11/18 Ibuprofen* (Motrin*) 600 Mg Tab, 600 MG PO Q6, #30 TAB Prov:JOSE MARTINEZ NP 01/12/18 Acetaminophen* (Tylophen*) 500 Mg Capsule, 1 CAP PO Q6H PRN for PAIN AND OR ELEVATED TEMP, #20 CAP Prov:JOSE MARTINEZ NP 01/05/18 Cephalexin* (Keflex*) 500 Mg Capsule, 500 MG PO QID for 7 Days, CAP Prov:JERICA MOELLERC 01/02/18 Cephalexin* (Keflex*) 500 Mg Capsule, 500 MG PO TID for 7 Days, CAP Prov:RAVI MIRANDAC 12/13/17 Acetaminophen* (Tylophen*) 500 Mg Capsule, 1 CAP PO Q6H PRN for PAIN AND OR ELEVATED TEMP, #20 CAP Prov:RAVI MIRANDAC 12/13/17 Tramadol HCl (Tramadol HCl) 50 Mg Tablet, 50 MG PO Q6 PRN for PAIN, #7 TAB Prov:JOSE MARTINEZ NP 12/09/17 Ibuprofen* (Motrin*) 600 Mg Tab, 600 MG PO Q6, #30 TAB Prov:AYDEN ROGERSC 11/28/17 Hydrocodone/Acetaminophen ([place] 5-325 Tablet) 1 Each Tablet, 1 EACH PO DAILY, #10 TAB Prov:EDWIGE BILL MD 11/08/17 Ibuprofen* (Motrin*) 600 Mg Tab, 600 MG PO Q6H PRN for PAIN AND OR ELEVATED TEMP, #30 TAB Prov:NATHANIEL MCKEON MD 11/04/17 Cephalexin* (Keflex*) 500 Mg Capsule, 500 MG PO QID for 7 Days, CAP Prov:NATHANIEL MCKEON MD 11/04/17 Sulfamethoxazole/Trimethoprim* (Bactrim Ds* Tablet) 1 Each Tablet, 1 TAB PO BID, #14 TAB Prov:NATHANIEL MCKEON MD 11/04/17 Follow-up Plan Please follow-up orthopedic surgery team in the clinic in 2 weeks, Dr. Alvarado. Please do not disturb your dressing in the meantime. He will most likely see you and take your brenna out in the clinic then in 2 weeks, and consider repeat x-rays at that time. Primary Care Provider Care Physician No Primary Pending Labs Laboratory Tests Test 03/22/18 15:26 03/22/18 16:29 03/22/18 21:28 03/23/18 07:49 Bedside 146 123 159 119 Glucose mg/dL (70-220) mg/dL (70-220) mg/dL (70-220) mg/dL (70-220) Test 03/23/18 12:43 Bedside 147 Glucose mg/dL (70-220) RUSTY HUERTA Mar 23, 2018 12:55
--- NOTE | 2018-03-23 14:10 | NUR ---
PT NOTE , Therapy day number 1 Subjective Current complaint of pain Pain Scale NUMERIC Pain Intensity 3 (0-10) Patient Stated Goal for Pain Relief 0 (0-10) Pain Level Comment lt hip Pre Treatment Vital Signs Stable Yes Exercise Assessment Label Bilat Lower Extremity Exercise Type Active ROM Additional Exercise Comments AP, KNEE FLEX, EXT, LOG ROLL TR Exercise Start Time 13:30 Exercise End Time 13:45 Total Exercise Time 15 min (8-127) Supine to Sit Contact Guard Assist Transfer Sit to Stand Ability Contact Guard Assist Bed Mobility Sit to Supine Contact Guard Assist Bed Transfer Ability Contact Guard Assist Sitting Tolerance 5 min Patient uses wheelchair Not Applicable Gait Training Start Time 13:45 Gait Assist Levels Minimum Assist Assistive Devices Front Wheel Walker Ambulation Distance 125 feet Additional Gait Comments LLE EXT.ROTATED , MILD LT ANTALGIC GAIT , UNEVEN STEPS . Gait Training End Time 14:00 Total Gait Training Treatment Time 15 min (8-127) Weight Bearing Assessment Label Left Lower Extremity Weight Bearing Status Weight Bearing as Tonio Additional Stairs Assist Comments TBA Static Sitting Balance Good Dynamic Sitting Balance Good Standing Static Balance Good Dynamic Standing Balance Fair plus Additional Balance Assessments Comments W/FWW Safety Judgement Fair Activity Tolerance Fair Equipment Present A pump IV pump Post Treatment Pain Intensity 3 0-10 Variance Documentation P/S SEE PT NOTE . Total Treament Time 30 min (8-127) Total Minutes 30 Total Units 2 PT Technical Record Comment PT NOTE , S: RN CLEARED , PATIENT AGREEABLE , PATIENT STILL ANXIOUS AND IMPULSIVE . O: PATIENT PERFORMED A/ROM BLE'S INCLUDING : AP, KNEE FLEX, EXT X2 SETS EACH 5 REPS , GAIT TR W/FWW PERFORMED 125' WITH MIN A AND CONSTANT VC'S FOR GAIT NORMALIZATION , SAFETY AND FALL PRECAUTION, PATIENT HAS ABNORMAL GAI PATTERN NOTED LLE EXTERNALLY ROTATED , MILD LT ANTALGIC GAIT AND TAKING UNEVEN STEPS . RN PRESENT DURING PT SESSION , PATIENT IS CLEARED TO AMBULATE WITH NSG STAFF . A: PT RECOMMEND SNF / REHAB PLACEMENT ONCE CLEARED BY MD FOR DISCGARGE . P: CONTINUE WITH POC .
[2018-03-23 14:29] VITALS: BP 126/80; PULSE 83; RESP 18
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
--- NOTE | 2018-03-23 18:50 | NUR ---
END OF SHIFT NOTES: PT STABLE, ALERT & ORIENTED X4. NO DISTRESS NOTED. ACCUCHECKS DONE, INSULIN COVERAGE GIVEN. EVALUATED BY PHYSICAL THERAPIST TODAY. FULL WEIGHT BEARING TOLERATED. PT DENIES PAIN. PENDING SNF PLACEMENT. INSTRUCTED PT TO CALL FOR ASSISTANCE. VS WNL.HOURLY ROUNDING. CALL LIGHT WITHIN REACH.ALL NEEDS MET. NO NEW COMPLAINTS
[2018-03-23 19:55] VITALS: BP 135/81; PULSE 83; RESP 18
[2018-03-23] MEDS: ATORVASTATIN 40 MG TAB PO SCH (20:22)
[2018-03-23] MEDS: HALOPERIDOL 5 MG TAB PO SCH ×2 (20:22→20:27)
--- NOTE | 2018-03-23 22:12 | NUR ---
Pt had temp 100.6 at 1900 VS check. Implemented cooling measures. Applied ice pack to underarms and forehead. Cooled temperature in room and covered pt with only one sheet. Will continue to monitor.
[2018-03-24] MEDS: ACCU-CHEK XX SCH (01:06)
[2018-03-24 02:30] VITALS: BP 127/87; PULSE 82; RESP 18
[2018-03-24] MEDS: PANTOPRAZOLE (EC) 40 MG TAB PO SCH (05:04)
--- NOTE | 2018-03-24 06:12 | NUR ---
EOSS No acute changes in patient's condition. VS WNL. A&Ox2. Pt refused Haldol. All other meds given. Pt denies pain. Accuchecks done. No coverage required. Hourly rounding done. Bed left in lowest position with bed alarm on. Call light left within reach.
[2018-03-24] MEDS: HYDROCODONE/APAP (5/325) TAB PO PRN ×3 (07:40→20:30)
[2018-03-24 08:01] VITALS: BP 132/84; PULSE 54; RESP 19
[2018-03-24] MEDS: ENOXAPARIN 40 MG/0.4 ML SYG SC SCH (08:18)
[2018-03-24] MEDS: LISINOPRIL 20 MG TAB PO SCH (08:18)
[2018-03-24] MEDS: INSULIN ASPART [NOVOLOG] 3 ML PEN SC SCH ×4 (08:19→21:14)
[2018-03-24] MEDS: SENNA TAB PO SCH ×2 (08:19→20:49)
[2018-03-24] MEDS: BUSPIRONE 10 MG TAB PO SCH ×3 (08:20→20:48)
--- NOTE | 2018-03-24 09:30 | NUR ---
EARLINE NOTE: SNF PLACEMENT Order received for SNF placement. Order faxed to [facility] at [facility] (P:[phone], F:[phone]). [facility] (P:[phone], F:[phone]), [facility] (P:[phone], F:[phone]), [facility] (P:[phone], F:[phone]). Confirmation Received. Abhijeet Banegas RN CM [id number] Addendum: 03/26/18 at 1126 by CYNDEE BANEGAS CM Received call from Sharon at [facility] stating that pt does note meet criteria for SNF.
--- NOTE | 2018-03-24 09:40 | NUR ---
PT NOTE [facility] Patient: Samuel Shields : 1975 Age/Sex: 43/M Unit#: [id number] Room/Bed: 2285/B User: Nancy Mosquera PTA Date: 03/24/18 09:15 Type: PT Technical Record Therapy day number 2 Subjective Current complaint of pain Pain Scale NUMERIC Pain Intensity 5 (0-10) Patient Stated Goal for Pain Relief 0 (0-10) Pain Level Comment L hip; premedicated Transfer Training Start Time 09:15 Supine to Sit Minimum Assist Transfer Sit to Stand Ability Stand by Assist Bed Mobility Sit to Supine Minimum Assist Additional Mobility Comments Min A with L LE; STS with FWW Transfer Training End Time 09:25 Total Transfer Training Time 10 min (8-127) Patient uses wheelchair Not Applicable Gait Training Start Time 09:26 Gait Assist Levels Contact Guard Assist Assistive Devices Front Wheel Walker Ambulation Distance 80 feet Additional Gait Comments 3 point gait, slightly impulsive, VCs on L LE neutral positioning Gait Training End Time 09:40 Total Gait Training Treatment Time 14 min (8-127) Weight Bearing Assessment Label Left Lower Extremity Weight Bearing Status Weight Bearing as Tonio Static Sitting Balance Good Dynamic Sitting Balance Good Standing Static Balance Good Dynamic Standing Balance Fair plus Additional Balance Assessments Comments with FWW Safety Judgement Fair Activity Tolerance Fair Post Treatment Pain Intensity 5 0-10 Variance Documentation see PT note Additional Post Treatment Comment impulsive Total Treament Time 24 min (8-127) Total Minutes 24 Total Units 2 PT Technical Record Comment PT NOTE S: Pt c/o L hip pain at rest and with activities. Agreed to skilled PT. Cleared and premedicated by NASEEM José. O: Received awake in supine. See tech record for assist levels. Min A with L LE during transfers. STS with FWW. Gait training with FWW 3 point gait, initiated with extreme L LE ER, VCs to maintain neutral positioning; pt demo'd good understanding/fair return. Returned back to bed d/t fatigue and pain. Positioned in supine, call light and all necessities within reach. Pt requested additional pain medicine; informed RN. A: Pt tonio tx faily. Slightly impulsive. Improved L LE positioning with VCs. P: Continue with POC.
[2018-03-24 13:58] VITALS: BP 131/75; PULSE 92; RESP 16
--- NOTE | 2018-03-24 14:18 | PN ---
Date/Time of Note Date/Time of Note DATE: 03/24/18 TIME: 14:15 Assessment/Plan VTE Prophylaxis Risk score (from Ns)>0 risk: 7 SCD applied (from Ns): No SCD contraindicated: other Pharmacological prophylaxis: LMWH Lines/Catheters IV Catheter Type (from Nrs): Saline Lock Urinary Cath still in place: No Assessment/Plan Hospital Course S: No acute events overnight, patient not able to be discharged home yesterday due to placement issues. O: Vs - see below PE: Gen: Well appearing well developed man in no acute distress. Eyes: PERRL, no icterus HEENT: Clear oropharynx. Minimal jaw range of motion. Moist mucous membranes. Neck: Supple, no lymphadenopathy. JVP visible with estimated CVP 7 mmHg Card: Regular rate and rhythm, no murmurs Pulm: Clear to auscultation bilaterally Abd: Soft, nontender, nondistended. Ext: L hip minimal tenderness Peripherally neurovascular intact. Skin: Circular discoid esposito on arms and legs symmetrically. Assessment/Plan: 43 yo man history of NIDDM presents with L IT hip fracture. #Hip fracture- Per XR hip and CT pelvix- s/p operative reduction, internal fixation by Dr Alvarado 03/22 -Continue diet - Anticoagulation per ortho -aspirin 325 as outpatient - PT #diabetes- HgbA1C 7.5 -Continue sliding scale insulin - Holding home metformin #Psych disorder - Cont home buspirone and haldol #HTN - Cont home lisinopril #Dyslipidemia - Cont home statin Dispo: oncology transplant network manager working on SNF placement Result Diagram: 03/22/18 0523 03/22/18 0523 Results 24hrs Laboratory Tests Test 03/23/18 17:41 03/23/18 20:20 03/24/18 07:54 03/24/18 11:32 Bedside Glucose 157 138 202 130 Exam/Review of Systems Vital Signs Vitals Vital Signs Date Temp Pulse Resp B/P (MAP) Pulse Ox O2 O2 Flow FiO2 Time Delivery Rate 03/24/18 97.8 92 16 131/75 96 13:58 (93) 03/23/18 Room Air 14:29 Intake and Output 03/23/18 03/23/18 03/24/18 1515:00 23:00 07:00 IntakeIntake Total 850 ml 800 ml OutputOutput Total 2400 ml 2000 ml 600 ml BalanceBalance -1550 ml -1200 ml -600 ml Medications Medications Current Medications Ondansetron HCl (Zofran Inj) 4 mg Q6H PRN IV NAUSEA AND/OR VOMITING; Start 03/21/18 at 12:30 Senna (Senokot) 2 tab BID PO Last administered on 03/24/18 08:19; Admin Dose 2 TAB; Start 03/21/18 at 21:00 Diagnostic Test (Pha) (Accu-Chek) 1 ea 02 XX ; Start 03/22/18 at 02:00 Insulin Aspart (Novolog Insulin Pen) NOVOLOG *MODERATE* ALGORITHM WITH MEALS BEDTIME SC Last administered on 03/24/18 08:19; Admin Dose 4 UNIT; Start 03/21/18 at 18:00 Atorvastatin Calcium (Lipitor) 40 mg QHS PO Last administered on 03/23/18at 20:22; Admin Dose 40 MG; Start 03/21/18 at 21:00 Buspirone HCl (Buspar) 15 mg TID PO Last administered on 03/24/18at 13:16; Admin Dose 15 MG; Start 03/21/18 at 13:00 Haloperidol (Haldol) 5 mg QHS PO Last administered on 03/22/18at 21:19; Admin Dose 5 MG; Start 03/21/18 at 21:00 Lisinopril (Zestril) 40 mg DAILY PO Last administered on 03/24/18 08:18; Admin Dose 40 MG; Start 03/22/18 at 09:00 Miscellaneous Information 1 ea NOTE XX ; Start 03/21/18 at 13:00 Glucose (Glutose) 15 gm Q15M PRN PO DECREASED GLUCOSE; Start 03/21/18 at 13:00 Glucose (Glutose) 22.5 gm Q15M PRN PO DECREASED GLUCOSE; Start 03/21/18 at 13:00 Dextrose (D50w Syringe) 25 ml Q15M PRN IV DECREASED GLUCOSE; Start 03/21/18 at 13:00 Dextrose (D50w Syringe) 50 ml Q15M PRN IV DECREASED GLUCOSE; Start 03/21/18 at 13:00 Glucagon (Glucagen) 1 mg Q15M PRN IM DECREASED GLUCOSE; Start 03/21/18 at 13:00 Glucose (Glutose) 15 gm Q15M PRN BUCCAL DECREASED GLUCOSE; Start 03/21/18 at 13:00 Pantoprazole (Protonix Tab) 40 mg DAILY@06 PO Last administered on 03/24/18at 05:04; Admin Dose 40 MG; Start 03/23/18 at 06:00 IV Flush (NS 3 ml) 3 ml per protocol IV ; Start 03/22/18 at 14:30 Enoxaparin Sodium (Lovenox) 40 mg DAILY SC Last administered on 03/24/18at 08:18; Admin Dose 40 MG; Start 03/23/18 at 09:00 Morphine Sulfate (morphine) 3 mg Q3H PRN IV SEVERE PAIN LEVEL 7-10; Start 03/22/18 at 14:30 Acetaminophen/ Hydrocodone Bitart ([place] (5/325)) 1 tab Q3H PRN PO MODERATE PAIN LEVEL 4-6 Last administered on 03/24/18at 13:56; Admin Dose 1 TAB; Start 03/22/18 at 14:30 RUSTY HUERTA Mar 24, 2018 14:17
--- NOTE | 2018-03-24 15:10 | NUR ---
PT NOTE [facility] Patient: Samuel Shields : 1975 Age/Sex: 43/M Unit#: [id number] Room/Bed: 2285/B User: Nancy Mosquera PTA Date: 03/24/18 14:45 Type: PT Technical Record Therapy day number 2 Subjective Denies pain Pain Scale NUMERIC Pain Intensity 0 (0-10) Patient Stated Goal for Pain Relief 0 (0-10) Pain Level Comment denied pain at rest Transfer Training Start Time 14:45 Supine to Sit Contact Guard Assist Transfer Sit to Stand Ability Stand by Assist Bed Mobility Sit to Supine Contact Guard Assist Additional Mobility Comments CGA with L LE Transfer Training End Time 14:55 Total Transfer Training Time 10 min (8-127) Patient uses wheelchair Not Applicable Gait Training Start Time 14:56 Gait Assist Levels Stand by Assist Assistive Devices Front Wheel Walker Ambulation Distance 150 feet Additional Gait Comments 3 point gait with improved L heel strike; slight L ER Gait Training End Time 15:10 Total Gait Training Treatment Time 14 min (8-127) Weight Bearing Assessment Label Left Lower Extremity Weight Bearing Status Weight Bearing as Tonio Static Sitting Balance Good Dynamic Sitting Balance Good Standing Static Balance Good Dynamic Standing Balance Fair plus Additional Balance Assessments Comments with FWW Safety Judgement Fair Activity Tolerance Good Post Treatment Pain Intensity 0 0-10 Variance Documentation see PT note Additional Post Treatment Comment slightly impulsive Total Treament Time 24 min (8-127) Total Minutes 24 Total Units 2 PT Technical Record Comment PT NOTE S: "Pain is better." Agreed to skilled PT. Cleared by NASEEM José. O: Received awake in supine. See tech record for transfer assist levels. Transfered to EOB with HOB elevated. STS with FWW. Gait training with FWW, 3 point gait, improved L hip positioning but still in ER, improved L heel strike with knee flexion, slightly increased doris. Returned back to supine, call light and all necessities within reach. Informed RN. A: Pt tonio tx well. Improved gait pattern and distance this tx. P: Continue with POC.
--- NOTE | 2018-03-24 18:15 | NUR ---
SHIFT SUMMARY: MEDICATED FOR PAIN PRN W/ EFFECTIVE RESULT. AMBULATED W/ PT TODAY W/ FWB. LEFT HIP DRESSING INTACT AND DRY. NO BLEEDING NOTED. HOURLY ROUNDING ESTABLISHED / SAFETY PRECAUTIONS MAINTAINED. NO RESPIRATORY DISTRESS NOTED. ALL NEEDS ATTENDED AND RENDERED. CALL LIGHT WITHIN REACH.
[2018-03-24 20:26] VITALS: BP 149/75; PULSE 83; RESP 16
[2018-03-24] MEDS: ATORVASTATIN 40 MG TAB PO SCH (20:49)
[2018-03-24] MEDS: HALOPERIDOL 5 MG TAB PO SCH (20:49)
[2018-03-25] MEDS: HYDROCODONE/APAP (5/325) TAB PO PRN ×3 (01:06→11:57)
[2018-03-25 01:45] VITALS: BP 124/75; PULSE 80; RESP 16
[2018-03-25] MEDS: ACCU-CHEK XX SCH (02:00)
--- NOTE | 2018-03-25 04:51 | NUR ---
re: shift note patient is alert and oriented, vss, no signs of distress noted. medicated with prn pain medication, verbalized partial relief. remains free from injury and falls. blood glucose in the 300s last night, MD notified and aware, sliding scale insulin administered. patient educated regarding diet and carbohydrate consumption as pt states he had soda and fries in the evening. will continue to monitor.
[2018-03-25] MEDS: PANTOPRAZOLE (EC) 40 MG TAB PO SCH (05:15)
[2018-03-25 07:34] VITALS: BP 119/74; PULSE 68; RESP 18
[2018-03-25] MEDS: BUSPIRONE 10 MG TAB PO SCH ×3 (08:03→20:38)
[2018-03-25] MEDS: LISINOPRIL 20 MG TAB PO SCH (08:04)
[2018-03-25] MEDS: SENNA TAB PO SCH ×2 (08:04→20:37)
[2018-03-25] MEDS: ENOXAPARIN 40 MG/0.4 ML SYG SC SCH (08:28)
[2018-03-25] MEDS: INSULIN ASPART [NOVOLOG] 3 ML PEN SC SCH ×5 (08:29→20:41)
--- NOTE | 2018-03-25 08:55 | NUR ---
PT NOTE Therapy day number 3 Subjective Current complaint of pain Pain Scale NUMERIC Pain Intensity 10 (0-10) Patient Stated Goal for Pain Relief 0 (0-10) Pain Level Comment L hip pain, premedicated Transfer Training Start Time 08:55 Supine to Sit Supervised Transfer Sit to Stand Ability Stand by Assist Bed Mobility Sit to Supine Contact Guard Assist Additional Mobility Comments CGA with L LE onto bed per pt's request Transfer Training End Time 09:10 Total Transfer Training Time 15 min (8-127) Patient uses wheelchair Not Applicable Gait Training Start Time 09:10 Gait Assist Levels Stand by Assist Assistive Devices Front Wheel Walker Ambulation Distance 200 feet Additional Gait Comments 3 point gait, slight antalgic gait, no LOB/buckling Gait Training End Time 09:34 Total Gait Training Treatment Time 24 min (8-127) Weight Bearing Assessment Label Left Lower Extremity Weight Bearing Status Weight Bearing as Tonio Stair Climbing Ability Contact Guard Assist Number of Stairs 1 Stairs Additional Stairs Assist Comments 1 platform step using FWW x 2 w/VCs for sequence. Fair demonstration Static Sitting Balance Good Dynamic Sitting Balance Good Standing Static Balance Good Dynamic Standing Balance Fair plus Additional Balance Assessments Comments FWW Safety Judgement Fair Activity Tolerance Good Post Treatment Pain Intensity 5 0-10 Variance Documentation SEE BELOW AND PT NOTE Total Treament Time 39 min (8-127) Total Minutes 39 Total Units 3 PT Technical Record Comment PT NOTE S: Pt stated, "My hip hurts like a 10 right now, but it's cool I can go for a walk now." Agreeable for PT and cleared per NASEEM Arnold. O: Received pt in semi-fowlers, alert w/family present in room. Bed mobility w/HOB elevated using BR Supervised. Applied gait belt at EOB. NASEEM Arnold approached room to premedicate pt. STS to FWW SBA/Supervised. Gait training performed w/FWW 200' SBA/Supervised. Noted 3 point gait, slight antalgic gait, and no LOB/buckling. Pt required VCs to not lift AD when making turns. Pt verbalized and demonstrated w/fair return. Stair training performed 1 platform step x 2 using FWW w/VCs for sequence, CGA/SBA fair demonstration. Assisted pt back to room BTB. CGA to lift LLE onto bed per pt's request. Left pt in comfort position, call light/phone within reach, bed alarmed, and all needs met. NASEEM Arnold informed of pt's status. A: Good tolerance to tx. Pt showed no signs of distress or SOB during or after tx. Pt reported slight dizziness once returning BTB post tx, due to the pain medication. Bed mobility and gait distance improved compared to previous tx. P: Continue POC and progress as tolerated.
[2018-03-25] MEDS ORDERED: morphine SULFATE/PF (2 MG/2 ML) SYG IV PRN (11:30)
--- NOTE | 2018-03-25 12:36 | PN ---
Date/Time of Note Date/Time of Note DATE: 03/25/18 TIME: 12:27 Assessment/Plan VTE Prophylaxis Risk score (from Ns)>0 risk: 6 SCD applied (from Ns): No SCD contraindicated: other Pharmacological prophylaxis: LMWH Lines/Catheters IV [facility]atheter Type (from [facility]): Peripheral IV Urinary Cath still in place: No Assessment/Plan Hospital Course S: Patient has some elevated blood sugars overnight. O: Vs - see below PE: Gen: Well appearing well developed man in no acute distress. Eyes: PERRL, no icterus HEENT: Clear oropharynx. Minimal jaw range of motion. Moist mucous membranes. Neck: Supple, no lymphadenopathy. JVP visible with estimated CVP 7 mmHg Card: Regular rate and rhythm, no murmurs Pulm: Clear to auscultation bilaterally Abd: Soft, nontender, nondistended. Ext: L hip minimal tenderness peripherally, otherwise neurovascular intact. Assessment/Plan: 43 yo man history of NIDDM presents with L IT hip fracture. #Hip fracture- Per XR hip and CT pelvic- s/p operative reduction, internal fixation by Dr Alvarado 03/22 - Continue diet - Anticoagulation per ortho -aspirin 325 as outpatient - PT #diabetes- HgbA1C 7.5 -sugars have been higher in the last 12 hours -Continue sliding scale insulin - Holding home metformin #Psych disorder - Cont home buspirone and haldol #HTN - Cont home lisinopril #Dyslipidemia - Cont home statin Dispo: care manager working on SNF placement Result Diagram: 03/22/18 0523 03/22/18 0523 Results 24hrs Laboratory Tests Test 03/24/18 17:23 03/24/18 20:48 03/24/18 23:20 03/25/18 02:57 Bedside Glucose 243 H 301 H 234 H 208 Test 03/25/18 08:01 03/25/18 12:04 Bedside Glucose 145 295 H Exam/Review of Systems Vital Signs Vitals Vital Signs Date Temp Pulse Resp B/P (MAP) Pulse Ox O2 O2 Flow FiO2 Time Delivery Rate 03/25/18 97.9 68 18 119/74 100 Room Air 07:34 (89) Intake and Output 03/24/18 03/24/18 03/25/18 1515:00 23:00 07:00 IntakeIntake Total 960 ml 1700 ml 1720 ml OutputOutput Total 900 ml 1650 ml 2650 ml BalanceBalance 60 ml 50 ml -930 ml Medications Medications Current Medications Ondansetron HCl (Zofran Inj) 4 mg Q6H PRN IV NAUSEA AND/OR VOMITING; Start 03/21/18 at 12:30 Senna (Senokot) 2 tab BID PO Last administered on 03/25/18 08:04; Admin Dose 2 TAB; Start 03/21/18 at 21:00 Diagnostic Test (Pha) (Accu-Chek) 1 ea 02 XX Last administered on 03/25/18 02:00; Admin Dose 1 EA; Start 03/22/18 at 02:00 Insulin Aspart (Novolog Insulin Pen) NOVOLOG *MODERATE* ALGORITHM WITH MEALS BEDTIME SC Last administered on 03/25/18 08:29; Admin Dose 2 UNIT; Start 03/21/18 at 18:00 Atorvastatin Calcium (Lipitor) 40 mg QHS PO Last administered on 03/24/18 20:49; Admin Dose 40 MG; Start 03/21/18 at 21:00 Buspirone HCl (Buspar) 15 mg TID PO Last administered on 03/25/18 08:03; Admin Dose 15 MG; Start 03/21/18 at 13:00 Haloperidol (Haldol) 5 mg QHS PO Last administered on 03/22/18 21:19; Admin Dose 5 MG; Start 03/21/18 at 21:00 Lisinopril (Zestril) 40 mg DAILY PO Last administered on 03/25/18 08:04; Admin Dose 40 MG; Start 03/22/18 at 09:00 Miscellaneous Information 1 ea NOTE XX ; Start 03/21/18 at 13:00 Glucose (Glutose) 15 gm Q15M PRN PO DECREASED GLUCOSE; Start 03/21/18 at 13:00 Glucose (Glutose) 22.5 gm Q15M PRN PO DECREASED GLUCOSE; Start 03/21/18 at 13:00 Dextrose (D50w Syringe) 25 ml Q15M PRN IV DECREASED GLUCOSE; Start 03/21/18 at 13:00 Dextrose (D50w Syringe) 50 ml Q15M PRN IV DECREASED GLUCOSE; Start 03/21/18 at 13:00 Glucagon (Glucagen) 1 mg Q15M PRN IM DECREASED GLUCOSE; Start 03/21/18 at 13:00 Glucose (Glutose) 15 gm Q15M PRN BUCCAL DECREASED GLUCOSE; Start 03/21/18 at 13:00 Pantoprazole (Protonix Tab) 40 mg DAILY@06 PO Last administered on 03/25/18at 05:15; Admin Dose 40 MG; Start 03/23/18 at 06:00 IV Flush (NS 3 ml) 3 ml per protocol IV ; Start 03/22/18 at 14:30 Enoxaparin Sodium (Lovenox) 40 mg DAILY SC Last administered on 03/25/18at 08:28; Admin Dose 40 MG; Start 03/23/18 at 09:00 Acetaminophen/ Hydrocodone Bitart ([place] (5/325)) 1 tab Q3H PRN PO MODERATE PAIN LEVEL 4-6 Last administered on 03/25/18at 11:57; Admin Dose 1 TAB; Start 03/22/18 at 14:30 Morphine Sulfate (morphine SULFATE (PF)) 1 mg Q3H PRN IV SEVERE PAIN LEVEL 7- 10; Start 03/25/18 at 11:30 RUSTY HUERTA Mar 25, 2018 12:36
--- NOTE | 2018-03-25 13:20 | NUR ---
PT NOTE Therapy day number 3 Subjective Current complaint of pain Pain Scale NUMERIC Pain Intensity 7 (0-10) Patient Stated Goal for Pain Relief 0 (0-10) Pain Level Comment L hip pain Transfer Training Start Time 13:20 Supine to Sit Supervised Transfer Sit to Stand Ability Supervised Bed Mobility Sit to Supine Contact Guard Assist Additional Mobility Comments CGA with L LE onto bed per pt's request Transfer Training End Time 13:32 Total Transfer Training Time 12 min (8-127) Patient uses wheelchair Not Applicable Gait Training Start Time 13:32 Gait Assist Levels Supervised Assistive Devices Front Wheel Walker Ambulation Distance 210 feet Additional Gait Comments 3 point gait, slight antalgic gait, no LOB/buckling Gait Training End Time 13:59 Total Gait Training Treatment Time 27 min (8-127) Weight Bearing Assessment Label Left Lower Extremity Weight Bearing Status Weight Bearing as Tonio Static Sitting Balance Good Dynamic Sitting Balance Good Standing Static Balance Good Dynamic Standing Balance Fair plus Additional Balance Assessments Comments FWW Safety Judgement Fair Activity Tolerance Good Post Treatment Pain Intensity 4 0-10 Variance Documentation SEE BELOW AND PT NOTE Total Treament Time 39 min (8-127) Total Minutes 39 Total Units 3 PT Technical Record Comment PT NOTE S: Pt stated, "I am feeling better." Agreeable for PT and cleared per NASEEM Arnold. O: Received pt in semi-fowlers, alert. Bed mobility w/HOB elevated using BR Supervised. Applied gait belt at EOB. STS to FWW Supervised. Gait training performed w/FWW 210' Supervised. Noted 3 point gait, slight antalgic gait, and no LOB/buckling. Assisted pt back to room BTB. CGA to lift LLE onto bed per pt's request. Left pt in comfort position, call light/phone within reach, bed alarmed, and all needs met. NASEEM Arnold informed of pt's status. A: Good tolerance to tx. Pt showed no signs of distress or SOB during or after tx. No c/o dizziness or nausea throughout tx. Transfers and gait distance improved compared to previous tx. P: Continue POC and progress as tolerated.
[2018-03-25 14:22] VITALS: BP 123/78; PULSE 68; RESP 16
--- NOTE | 2018-03-25 14:35 | NUR ---
SS NOTE: F/U SW SPOKE WITH PT AT BEDSIDE REGARDING D/C PLANNING. CM SONPERNELL BANEGAS WAS ALSO PRESENT. PT STATED THAT HE HAD POSSIBLY HAD AN ARRANGEMENT WITH HIS COUSIN TO GO TO HIS HOME AND HOME HEALTH COULD BE ARRANGED. PT PLACED CALL AND COUSIN IS NOW UNABLE TO ACCEPT THIS PT AT HIS HOME. PLAN REMAINS FOR ATTEMPTED SNF PLACEMENT FOR PHYSICAL THERAPY REHAB THERE IS NO RESIDENCE FOR THIS PT TO D/C TO AT THIS TIME. SW REMAINS AVAILABLE FOR F/U NEEDED.
--- NOTE | 2018-03-25 17:48 | NUR ---
End of shift report Pt agreeable with IV insertion for Morphine. Pt able to ambulate with walker at times, with no fall incident. Instructed pt to move slowly, sit at the edge of the bed for at least 30 seconds before getting out of bed, press the call light to report dizziness. Pt verbalized understanding. Blood sugar over 200mg/dl for breakfast and lunch. Per protocol, certified lactation educator consult ordered. Explained the pt about need for diabetic education. Pt verbalized understanding and stated willing to learn. In the afternoon, pt anxious to learn about placement after discharge. Communicated with Abhijeet, community case manager about need to speak with pt. Pt's preferred placement/facility information provided. Will continue to monitor.
[2018-03-25] MEDS: morphine LIQ (10 MG/5 ML) CUP PO PRN (18:09)
[2018-03-25 19:41] VITALS: BP 134/85; PULSE 68; RESP 16
[2018-03-25] MEDS ORDERED: INSULIN GLARGINE [LANTus] (100 UNITS/ML) SYG SC SCH (20:00)
[2018-03-25] MEDS: ATORVASTATIN 40 MG TAB PO SCH (20:34)
[2018-03-25] MEDS: HALOPERIDOL 5 MG TAB PO SCH (20:38)
[2018-03-26 01:50] VITALS: BP 130/74; PULSE 75; RESP 18
[2018-03-26] MEDS: ACCU-CHEK XX SCH (02:00)
[2018-03-26] MEDS: PANTOPRAZOLE (EC) 40 MG TAB PO SCH (05:36)
[2018-03-26] MEDS: morphine LIQ (10 MG/5 ML) CUP PO PRN ×4 (05:36→20:43)
--- NOTE | 2018-03-26 06:24 | NUR ---
EOSS: Patient slept most of the night. Accucheck done and no coverage of insulin administered at bedtime. No other complaints at this time. Will endorse to morning nurse for continuity of care.
[2018-03-26 07:19] VITALS: BP 122/69; PULSE 76; RESP 17
[2018-03-26] MEDS: INSULIN ASPART [NOVOLOG] 3 ML PEN SC SCH ×7 (08:21→20:37)
[2018-03-26] MEDS: ENOXAPARIN 40 MG/0.4 ML SYG SC SCH (08:22)
[2018-03-26] MEDS: SENNA TAB PO SCH ×2 (08:24→20:38)
[2018-03-26] MEDS: BUSPIRONE 10 MG TAB PO SCH ×3 (08:24→20:38)
[2018-03-26] MEDS: LISINOPRIL 20 MG TAB PO SCH (08:24)
--- NOTE | 2018-03-26 08:45 | NUR ---
PT NOTE Therapy day number 4 Subjective Denies pain Pain Scale NUMERIC Pain Intensity 0 (0-10) Patient Stated Goal for Pain Relief 0 (0-10) Pain Level Comment denies pain at rest Transfer Training Start Time 08:45 Supine to Sit Modified Independent Transfer Sit to Stand Ability Supervised Bed Mobility Sit to Supine Contact Guard Assist Additional Mobility Comments CGA with L LE onto bed per pt's request Transfer Training End Time 08:58 Total Transfer Training Time 13 min (8-127) Patient uses wheelchair Not Applicable Gait Training Start Time 08:58 Gait Assist Levels Supervised Assistive Devices Front Wheel Walker Ambulation Distance 220 feet Additional Gait Comments 3 point gait, slight antalgic gait, no LOB/buckling Gait Training End Time 09:10 Total Gait Training Treatment Time 12 min (8-127) Stair Climbing Ability Supervised Number of Stairs 1 Stairs Additional Stairs Assist Comments 1 platform step using FWW x 1 w/reminder VCs for sequence. Fair demo Static Sitting Balance Good Dynamic Sitting Balance Good Standing Static Balance Good Dynamic Standing Balance Fair plus Additional Balance Assessments Comments FWW Safety Judgement Fair Activity Tolerance Good Post Treatment Pain Intensity 6 0-10 Variance Documentation SEE BELOW AND PT NOTE Total Treament Time 25 min (8-127) Total Minutes 25 Total Units 2 PT Technical Record Comment PT NOTE S: Pt stated, "My pain is cool right now. No pain while I am in bed." Agreeable for PT and cleared per NASEEM Vences. O: Received pt in semi-fowlers, alert. Bed mobility w/HOB elevated using BR Celia. Applied gait belt at EOB. STS to FWW Supervised. Gait training performed w/FWW 220' Supervised. Noted 3 point gait, slight antalgic gait, and no LOB/buckling. Pt required occasionally reminder VCs to not lift AD when making turns. Pt verbalized and demonstrated w/fair return. Stair training performed 1 platform step x 1 using FWW w/reminder VCs for sequence, Supervised w/fair demonstration. Assisted pt back to room BTB. CGA to lift LLE onto bed per pt's request. Left pt in comfort position, call light/phone within reach, bed alarmed, and all needs met. NASEEM Vences informed of pt's status. A: Good tolerance to tx. Pt showed no signs of distress or SOB during or after tx. No c/o dizziness or nausea throughout tx. Bed mobility, stair training, and gait distance improved compared to previous tx. Pt is clear to ambulate w/nursing staff in hallway w/FWW. P: Continue POC and progress as tolerated.
--- NOTE | 2018-03-26 13:04 | NUR ---
SS NOTE: F/U SW F/U WITH PT REGARDING D/C POSSIBILITIES. PT IS IN NEED OF POST D/C HOME HEALTH PHYSICAL REHAB. PT IS CURRENTLY HOMELESS LIVING ON THE STREET. PT WILL NEED SNF PLACEMENT OR HOME SETTING W/HH FOR PHYSICAL REHAB. PER PT, NO FAMILY MEMBER OR FRIEND IS CURRENTLY ABLE TO ACCOMMODATE THIS PT AT A HOME SETTING WHERE HE CAN RECEIVE HOME HEALTH F/U TRX. PT STATED THAT HE PLANS TO GO TO [facility] FOR METHAMPHETAMINE ABUSE POST D/C. PT STATED THAT HE HAS BEEN IN CONTACT WITH [facility] AND WAS INFORMED THAT THERE IS A BED AVAILABLE IN THEIR RESIDENTIAL REHAB PROGRAM. PT STATED THAT HE SPOKE WITH AN INTAKE PERSON WHO INFORMED HIM THEY CAN ACCOMMODATE FWW AND HH. PT PROVIDED SW WITH CONTACT INFORMATION FOR INTAKE NURSE FELIZ ([phone]) TO COORDINATE. KEO CALLED AND LEFT MESSAGE FOR FELIZ TO COORDINATE D/C, CONFIRM THAT HOME HEALTH CAN BE PROVIDED IN THAT SETTING AND IF FWW WILL BE ALLOWED. KEO LEFT MESSAGE TO INQUIRE FAX NUMBER FOR ANY NEEDED MEDICAL INFORMATION. THIS NOTE TELLER AWAITS CALL BACK TO CONFIRM STATUS. SW REMAINS AVAILABLE FOR F/U NEEDED.
--- NOTE | 2018-03-26 13:17 | NUR ---
PT NOTE Therapy day number 4 Subjective Denies pain Pain Scale NUMERIC Pain Intensity 0 (0-10) Patient Stated Goal for Pain Relief 0 (0-10) Pain Level Comment DENIES PAIN AT REST, PREMEDICATED Transfer Training Start Time 13:17 Supine to Sit Modified Independent Transfer Sit to Stand Ability Supervised Bed Mobility Sit to Supine Stand by Assist Transfer Training End Time 13:29 Total Transfer Training Time 12 min (8-127) Patient uses wheelchair Not Applicable Gait Training Start Time 13:29 Gait Assist Levels Supervised Assistive Devices Front Wheel Walker Ambulation Distance 220 feet Additional Gait Comments 3 point gait, slight antalgic gait, no LOB/buckling Gait Training End Time 13:44 Total Gait Training Treatment Time 15 min (8-127) Weight Bearing Assessment Label Left Lower Extremity Weight Bearing Status Weight Bearing as Tonio Static Sitting Balance Good Dynamic Sitting Balance Good Standing Static Balance Good Dynamic Standing Balance Fair plus Additional Balance Assessments Comments FWW Safety Judgement Fair Activity Tolerance Good Post Treatment Pain Intensity 3 0-10 Variance Documentation SEE BELOW AND PT NOTE Total Treament Time 27 min (8-127) Total Minutes 27 Total Units 2 PT Technical Record Comment PT NOTE S: Pt stated, "I'm good right now. Got pain medication so I'm cool." Agreeable for PT and cleared per NASEEM Vences. O: Received pt in semi-fowlers, alert. Bed mobility w/HOB elevated using BR Celia. Applied gait belt at EOB. STS to FWW Supervised. Gait training performed w/FWW 220' Supervised. Noted 3 point gait, mild antalgic gait, and no LOB/buckling. Pt required Min reminder VCs to not lift AD when making turns and to maintain distance from AD for safety. Pt verbalized and demonstrated w/fair return. Assisted pt back to room BTB SBA/Supervised. Left pt in comfort position, call light/phone within reach, bed alarmed, and all needs met. NASEEM Vences informed of pt's status. A: Good tolerance to tx. Pt showed no signs of distress or SOB during or after tx. No c/o dizziness or nausea throughout tx. Bed mobility BTB improved compared to previous tx. Pt reported mild BUE and general fatigue post tx. P: Continue POC and progress as tolerated.
--- NOTE | 2018-03-26 14:05 | PN ---
Date/Time of Note Date/Time of Note DATE: 03/26/18 TIME: 14:05 Assessment/Plan VTE Prophylaxis Risk score (from Ns)>0 risk: 8 SCD applied (from Ns): Yes SCD contraindicated: other Pharmacological prophylaxis: LMWH Lines/Catheters IV Catheter Type (from Nrs): Saline Lock Urinary Cath still in place: No Assessment/Plan Hospital Course S: Patient sugars are slightly improved with insulin adjustments. No acute events overnight. O: Vs - see below PE: Gen: Well appearing well developed man in no acute distress. Eyes: PERRL, no icterus HEENT: Clear oropharynx. Minimal jaw range of motion. Moist mucous membranes. Neck: Supple, no lymphadenopathy. JVP visible with estimated CVP 7 mmHg Card: Regular rate and rhythm, no murmurs Pulm: Clear to auscultation bilaterally Abd: Soft, nontender, nondistended. Ext: L hip minimal tenderness peripherally, otherwise neurovascular intact. Assessment/Plan: 43 yo man history of NIDDM presents with L IT hip fracture. 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 Result Diagram: 03/25/18 1309 03/25/18 1309 Results 24hrs Laboratory Tests Test 03/25/18 17:19 03/25/18 20:41 03/26/18 08:18 03/26/18 10:42 Bedside Glucose 121 166 212 248 H Test 03/26/18 13:01 Bedside Glucose 176 Exam/Review of Systems Vital Signs Vitals Vital Signs Date Temp Pulse Resp B/P (MAP) Pulse Ox O2 O2 Flow FiO2 Time Delivery Rate 03/26/18 98.6 76 17 122/69 99 Room Air 07:19 (86) Intake and Output 03/25/18 03/25/18 03/26/18 1515:00 23:00 07:00 IntakeIntake Total 580 ml 2050 ml 800 ml OutputOutput Total 2600 ml 4325 ml 1700 ml BalanceBalance -2020 ml -2275 ml -900 ml Medications Medications Current Medications Ondansetron HCl (Zofran Inj) 4 mg Q6H PRN IV NAUSEA AND/OR VOMITING; Start at 12:30 Senna (Senokot) 2 tab BID PO Last administered on 03/26/18 08:24; Admin Dose 2 TAB; Start 03/21/18 at 21:00 Insulin Aspart (Novolog Insulin Pen) NOVOLOG *MODERATE* ALGORITHM WITH MEALS BEDTIME SC Last administered on 03/26/18 13:03; Admin Dose 2 UNIT; Start 03/21/18 at 18:00 Atorvastatin Calcium (Lipitor) 40 mg QHS PO Last administered on 03/25/18 20:34; Admin Dose 40 MG; Start 03/21/18 at 21:00 Buspirone HCl (Buspar) 15 mg TID PO Last administered on 03/26/18 12:21; Admin Dose 15 MG; Start 03/21/18 at 13:00 Haloperidol (Haldol) 5 mg QHS PO Last administered on 03/22/18 21:19; Admin Dose 5 MG; Start 03/21/18 at 21:00 Lisinopril (Zestril) 40 mg DAILY PO Last administered on 03/26/18 08:24; Admin Dose 40 MG; Start 03/22/18 at 09:00 Miscellaneous Information 1 ea NOTE XX ; Start 03/21/18 at 13:00 Glucose (Glutose) 15 gm Q15M PRN PO DECREASED GLUCOSE; Start 03/21/18 at 13:00 Glucose (Glutose) 22.5 gm Q15M PRN PO DECREASED GLUCOSE; Start 03/21/18 at 13:00 Dextrose (D50w Syringe) 25 ml Q15M PRN IV DECREASED GLUCOSE; Start 03/21/18 at 13:00 Dextrose (D50w Syringe) 50 ml Q15M PRN IV DECREASED GLUCOSE; Start 03/21/18 at 13:00 Glucagon (Glucagen) 1 mg Q15M PRN IM DECREASED GLUCOSE; Start 03/21/18 at 13:00 Glucose (Glutose) 15 gm Q15M PRN BUCCAL DECREASED GLUCOSE; Start 03/21/18 at 13:00 Pantoprazole (Protonix Tab) 40 mg DAILY@06 PO Last administered on 03/26/18 05:36; Admin Dose 40 MG; Start 03/23/18 at 06:00 IV Flush (NS 3 ml) 3 ml per protocol IV ; Start 03/22/18 at 14:30 Enoxaparin Sodium (Lovenox) 40 mg DAILY SC Last administered on 03/26/18 08:22; Admin Dose 40 MG; Start 03/23/18 at 09:00 Acetaminophen/ Hydrocodone Bitart ([place] (5/325)) 1 tab Q3H PRN PO MODERATE PAIN LEVEL 4-6 Last administered on 03/25/18 11:57; Admin Dose 1 TAB; Start 03/22/18 at 14:30 Diagnostic Test (Pha) (Accu-Chek) 1 ea 02 XX ; Start 03/26/18 at 02:00 Insulin Glargine (Lantus) 6 units DAILY@2000 SC Last administered on 03/25/18 20:44; Admin Dose 6 UNITS; Start 03/25/18 at 20:00 Insulin Aspart (Novolog Insulin Pen) 3 unit WITH MEALS SC Last administered on 03/26/18 13:04; Admin Dose 3 UNIT; Start 03/25/18 at 18:00 Morphine Sulfate (morphine) 3 mg Q3H PRN PO SEVERE PAIN LEVEL 7-10 Last administered on 03/26/18 12:21; Admin Dose 3 MG; Start 03/25/18 at 16:00 RUSTY HUERTA Mar 26, 2018 14:05
[2018-03-26 14:31] VITALS: BP 114/79; PULSE 88; RESP 18
--- NOTE | 2018-03-26 18:25 | NUR ---
EOSS: PT STABLE THROUGHOUT SHIFT, ALL DUE MEDS GIVEN, HOURLY ROUNDING COMPLETED. PT CONTINUES TO REQUEST SNACKS AND HAVE FAMILY BRING FOOD FROM HOME THAT DOES NOT ADHERE TO HIS CARB CONTROLLED DIET. EDUCATION PROVIDED BY MYSELF AND CHARGE NURSE, RAGHAV. PT STATES HE NEEDS TO EXERCISE MORE WHICH IS WHY HIS SUGARS ARE HIGH. EDUCATED PT ON IMPORTANCE OF CONTROLLING HIS CARB INTAKE. WILL ENDORSE CARE OF PT TO ONCOMING AUTOMOTIVE PARTS COORDINATOR RN.
[2018-03-26] MEDS ORDERED: INSULIN GLARGINE [LANTus] (100 UNITS/ML) SYG SC SCH (20:00)
[2018-03-26 20:31] VITALS: BP 117/69; PULSE 81; RESP 16
[2018-03-26] MEDS: ATORVASTATIN 40 MG TAB PO SCH (20:38)
[2018-03-26] MEDS: HALOPERIDOL 5 MG TAB PO SCH (20:38)
[2018-03-27] MEDS: ACCU-CHEK XX SCH (02:11)
[2018-03-27] MEDS: morphine LIQ (10 MG/5 ML) CUP PO PRN (02:11)
[2018-03-27 02:19] VITALS: BP 120/70; PULSE 88; RESP 16
[2018-03-27] MEDS ORDERED: INSULIN ASPART [NOVOLOG] 3 ML PEN SC ONE (03:00)
[2018-03-27] MEDS: PANTOPRAZOLE (EC) 40 MG TAB PO SCH (04:59)
[2018-03-27] MEDS: HYDROCODONE/APAP (5/325) TAB PO PRN ×2 (04:59→12:39)
--- NOTE | 2018-03-27 06:08 | NUR ---
EOSS: Patient remains stable. Slept most of the night. Complained of pain intermittently and was medicated with morphine liquid PO. Bed in low position and locked. Siderails x2 up. Will endorse to morning nurse of continuity of care.
[2018-03-27 07:49] VITALS: BP 114/69; PULSE 76; RESP 18
[2018-03-27] MEDS: INSULIN ASPART [NOVOLOG] 3 ML PEN SC SCH ×4 (08:00→13:23)
[2018-03-27] MEDS: SENNA TAB PO SCH (08:35)
[2018-03-27] MEDS: BUSPIRONE 10 MG TAB PO SCH ×2 (08:36→12:40)
[2018-03-27] MEDS: LISINOPRIL 20 MG TAB PO SCH (08:37)
[2018-03-27] MEDS: ENOXAPARIN 40 MG/0.4 ML SYG SC SCH (08:41)
--- NOTE | 2018-03-27 08:47 | NUR ---
PT NOTE Therapy day number 5 Subjective Denies pain Pain Scale NUMERIC Pain Intensity 0 (0-10) Patient Stated Goal for Pain Relief 0 (0-10) Pain Level Comment denies pain at rest Transfer Training Start Time 08:47 Supine to Sit Modified Independent Transfer Sit to Stand Ability Supervised Bed Mobility Sit to Supine Supervised Transfer Training End Time 08:58 Total Transfer Training Time 11 min (8-127) Patient uses wheelchair Not Applicable Gait Training Start Time 08:58 Gait Assist Levels Supervised Assistive Devices Front Wheel Walker Ambulation Distance 230 feet Additional Gait Comments 3 point gait, slight antalgic gait, no LOB/buckling Gait Training End Time 09:11 Total Gait Training Treatment Time 13 min (8-127) Weight Bearing Assessment Label Left Lower Extremity Weight Bearing Status Weight Bearing as Tonio Stair Climbing Ability Supervised Number of Stairs 1 Stairs Additional Stairs Assist Comments 1 platform step using FWW x 1 w/reminder VCs for sequence. Fair demo Static Sitting Balance Good Dynamic Sitting Balance Good Standing Static Balance Good Dynamic Standing Balance Fair plus Additional Balance Assessments Comments FWW Safety Judgement Fair Activity Tolerance Good Post Treatment Pain Intensity 2 0-10 Variance Documentation SEE BELOW AND PT NOTE Total Treament Time 24 min (8-127) Total Minutes 24 Total Units 2 PT Technical Record Comment PT NOTE S: Pt stated, "I am good right now. No pain." Agreeable for PT and cleared per NASEEM Gonzalez. O: Received pt in semi-fowlers, alert. Bed mobility w/HOB elevated using BR Celia. Applied gait belt at EOB. STS to FWW Supervised. Gait training performed w/FWW 230' Supervised. Noted 3 point gait, slight antalgic gait, and no LOB/buckling. Pt required Min reminder VCs to not lift AD when making turns and to maintain distance from AD for safe ambulation. Pt verbalized and demonstrated w/fair return. Stair training performed 1 platform step x 1 using FWW w/reminder VCs for sequence, Supervised w/fair demonstration. Assisted pt back to room BTB, Supervised. Left pt in comfort position, call light/phone within reach, bed alarmed, and all needs met. ANSEEM Gonzalez informed of pt's status. A: Good tolerance to tx. Pt showed no signs of distress or SOB during or after tx. No c/o dizziness or nausea throughout tx. Bed mobility and gait distance improved compared to previous tx. P: Continue POC and progress as tolerated.
--- NOTE | 2018-03-27 13:55 | NUR ---
PT NOTE , Therapy day number 5 Subjective Denies pain Pain Scale NUMERIC Pain Intensity 0 (0-10) Patient Stated Goal for Pain Relief 0 (0-10) Pain Level Comment n/a Exercise Assessment Label Bilat Lower Extremity Exercise Type Active ROM Additional Exercise Comments AP, KNEE FLEX, EXT, SAQ. Supine to Sit Independent Transfer Sit to Stand Ability Independent Bed Mobility Sit to Supine Independent Bed Transfer Ability Independent Chair Transfer Ability Independent Toileting Ability Independent Patient uses wheelchair Not Applicable Gait Training Start Time 13:15 Gait Assist Levels Modified Independent Assistive Devices Front Wheel Walker Ambulation Distance 300 feet Additional Gait Comments SLOW RAYMOND , RECIPROCAL STEADY, STABLE , NO LOB W/FWW Gait Training End Time 13:45 Total Gait Training Treatment Time 30 min (8-127) Weight Bearing Assessment Label Left Lower Extremity Weight Bearing Status Weight Bearing as Tonio Stair Climbing Ability Modified Independent Number of Stairs 1 Stairs Additional Stairs Assist Comments ONE STEP ON PLATFORM STAIR Static Sitting Balance Good Dynamic Sitting Balance Good Standing Static Balance Good Dynamic Standing Balance Good Additional Balance Assessments Comments W/FWW Safety Judgement Good Activity Tolerance Good Post Treatment Pain Intensity 0 0-10 Variance Documentation COOPERATIVE AND MOTIVATED . Total Treatment Time 30 min (8-127) Total Minutes 30 Total Units 2 PT Technical Record Comment PT NOTE , S: RN CLEARED , PATIENT AGREEABLE , WOULD LIKE TO GO TO GO TO ANOTHER FACILITY .PATIENT'S FUNCTIONAL STATUS WELL SAFETY AWARENESS SIGNIFICANTLY IMPROVED , PATIENT DEMONSTRATED GOOD SAFETY AWARENESS DURING PT SESSION , GAIT W/FWW STEADY, STABLE , RECIPROCAL WITH NO LOB , RE-INSTRUCTED THE PATIENT IN SAFETY, FALL PRECAUTION AND A/ROM EXE'S BLE'S , NO FURTHER SKILLED PT REQUIRES , PATIENT IS CLEARED TO AMBULATE WITH FWW WITH [facility] . A: DC PLANNING PER DATA ADMINISTRATOR AND SW RECOMMENDATION , PATIENT WILL NEED FWW . P: DC SKILLED PT , PATIENT MEET PT'S GOAL .
[2018-03-27 14:36] VITALS: BP 120/74; PULSE 69; RESP 18
--- NOTE | 2018-03-27 14:56 | NUR ---
EARLINE NOTE: FWW Order received fro FWW. Order faxed to [facility] ([phone], [phone]) and BEE at [facility] (F:[phone]). Confirmation received. Abhijeet Banegas RN CM [id number] Addendum: 03/27/18 at 1503 by CYNDEE BANEGAS CM Received call from Calin at [facility] stating pt approved for FWW. Addendum: 03/27/18 at 1549 by CYNDEE BANEGAS CM FWW delivered to pt bedside. Pt signed for receipt. Copy of receipt given to pt.
--- NOTE | 2018-03-27 15:55 | DS ---
Date/Time of Note Date/Time of Note DATE: 03/27/18 TIME: 15:53 Discharge Summary Admission/Discharge Info Admit Date/Time Mar 21, 2018 at 11:10 Discharge Date/Time Discharge Diagnosis #Hip fracture-status post orthopedic surgical repair of this on March 22, 018. #diabetes A1c = 7.5, sugars now stable #Psych disorder - Cont home buspirone and haldol #HTN - Cont home lisinopril #Dyslipidemia - Cont home statin Patient Condition: Stable Procedures DATE OF OPERATION: 03/22/2018 PREOPERATIVE DIAGNOSIS: Intertrochanteric fracture of the left hip. POSTOPERATIVE DIAGNOSIS: Intertrochanteric fracture of the left hip. OPERATION PERFORMED: Open reduction and internal fixation of the intertrochanteric fracture of the left hip. Hx of Present Illness homeless 43 yo man with diabetes who presents with L hip IT fracture. On 03/17 he was with a friend cleaning some windows on a ladder or scaffold. He fell off and felt hip pain and was unable to move the hip or walk. He was unable to come into the hospital until today. He is a poor historian and is unable to clarify why he didn't come to the ED sooner. In the ED he wa afebrile, vital signs stable. Labs unremarkable. XR L hip notable for L IT fracture. Dr. Alvarado with orthopedic surgery notified. Hospital Course So patient was admitted, seen by orthopedic surgery team. He went underwent ORIF of the left hip. Patient tolerated the procedure well. Afterwards he received pain control medications, work and physical therapy. Vital signs were stable on the day of discharge. He was able to ambulate with assistance, tolerated p.o. diet. He will be able to go home today after being cleared by orthopedic surgery team. A1c was found to be 7.5. Sugars remained stable with appropriate insulin regimen while patient was here in the hospital. He will need to follow-up with ortho in 2 weeks. He will likely need front wheel walker as well. See below for full list of discharge medications. Home Meds Active Scripts Aspirin* (Aspirin* EC) 325 Mg Tab, 325 MG PO DAILY, #30 TAB 5 Refills Prov:RUSTY HUERTA. 03/23/18 Reported Medications Buspirone Hcl* (Buspirone Hcl*) 10 Mg Tab, 15 MG PO TID, TAB 03/21/18 Haloperidol* (Haldol*) 5 Mg Tab, 5 MG PO QHS, TAB 10/26/17 Lisinopril* (Lisinopril*) 40 Mg Tablet, 40 MG PO DAILY, #30 TAB 10/26/17 Atorvastatin* (Atorvastatin*) 40 Mg Tablet, 40 MG PO QHS, #30 TAB 10/26/17 Metformin* (Glucophage*) 1,000 Mg Tablet, 1000 MG PO BID, #60 TAB 10/17/17 Discontinued Reported Medications Aspirin (Low Dose Aspirin) 81 Mg Tablet.dr, 81 MG PO DAILY, #30 TAB 10/26/17 Buspirone Hcl* (Buspar*) 5 Mg Tab, 15 MG PO TID, TAB 10/26/17 Discontinued Scripts Ibuprofen* (Motrin*) 800 Mg Tab, 800 MG PO Q6, #20 TAB Prov:JONNIE HERNANDEZ PA-C 02/25/18 Dextromethorphan Hb-Promethazine Hcl* (Promethazine DM* Syrup) 473 Ml Syrup, 5 ML PO Q6 PRN for COUGH, #100 ML Prov:JONNIE HERNANDEZ PA-C 02/25/18 Benzonatate* (Benzonatate*) 200 Mg Capsule, 200 MG PO TID PRN for COUGH, #15 CAP Prov:JONNIE HERNANDEZ PA-C 02/25/18 Ibuprofen* (Motrin*) 800 Mg Tab, 800 MG PO Q6H PRN for PAIN AND OR ELEVATED TEMP , #30 TAB Prov:JEREMIAH PENA PA-C 02/16/18 Clindamycin Hcl* (Clindamycin Hcl*) 300 Mg Capsule, 300 MG PO TID for 10 Days, CAP Prov:JONNIE GEE 02/11/18 Sulfamethoxazole/Trimethoprim* (Bactrim Ds* Tablet) 1 Each Tablet, 1 TAB PO BID, #14 TAB Prov:JONNIE GEE 02/11/18 Ibuprofen* (Motrin*) 600 Mg Tab, 600 MG PO Q6, #30 TAB Prov:JOSE MARTINEZ NP 01/12/18 Acetaminophen* (Tylophen*) 500 Mg Capsule, 1 CAP PO Q6H PRN for PAIN AND OR ELEVATED TEMP, #20 CAP Prov:JOSE MARTINEZ NP 01/05/18 Cephalexin* (Keflex*) 500 Mg Capsule, 500 MG PO QID for 7 Days, CAP Prov:JERICA MOELLER 01/02/18 Cephalexin* (Keflex*) 500 Mg Capsule, 500 MG PO TID for 7 Days, CAP Prov:RAVI MIRANDAC 12/13/17 Acetaminophen* (Tylophen*) 500 Mg Capsule, 1 CAP PO Q6H PRN for PAIN AND OR ELEVATED TEMP, #20 CAP Prov:RAVI MIRANDA 12/13/17 Tramadol HCl (Tramadol HCl) 50 Mg Tablet, 50 MG PO Q6 PRN for PAIN, #7 TAB Prov:JOSE MARTINEZ NP 12/09/17 Ibuprofen* (Motrin*) 600 Mg Tab, 600 MG PO Q6, #30 TAB Prov:AYDEN ROGERS 11/28/17 Hydrocodone/Acetaminophen (Five [place] 5-325 Tablet) 1 Each Tablet, 1 EACH PO DAILY, #10 TAB Prov:EDWIGE BILL MD 11/08/17 Ibuprofen* (Motrin*) 600 Mg Tab, 600 MG PO Q6H PRN for PAIN AND OR ELEVATED TEMP, #30 TAB Prov:NATHANIEL MCKEON MD 11/04/17 Cephalexin* (Keflex*) 500 Mg Capsule, 500 MG PO QID for 7 Days, CAP Prov:NATHANIEL MCKEON MD 11/04/17 Sulfamethoxazole/Trimethoprim* (Bactrim Ds* Tablet) 1 Each Tablet, 1 TAB PO BID, #14 TAB Prov:NATHANIEL MCKEON MD 11/04/17 Follow-up Plan Please follow-up orthopedic surgery team in the clinic in 2 weeks, Dr. Alvarado. Please do not disturb your dressing in the meantime. He will most likely see you and take your brenna out in the clinic then in 2 weeks, and consider repeat x-rays at that time. Primary Care Provider Care Physician No Primary Time spent on discharge: > 30 minutes Pending Labs Laboratory Tests Test 03/26/18 17:33 03/26/18 20:34 03/27/18 02:12 03/27/18 08:33 Bedside 222 274 304 136 Glucose mg/dL (70-220) mg/dL (70-220) mg/dL (70-220) mg/dL (70-220) Test 03/27/18 12:43 Bedside 180 Glucose mg/dL (70-220) RUSTY HUERTA Mar 27, 2018 15:55
--- NOTE | 2018-03-27 16:33 | NUR ---
SS NOTE: PT ACCEPTED TO [facility] KEO FACILITATED PT REFERRAL TO [facility] IN [place] KEO FAXED PT PACKET TO Cornelius Maddox, Chip Tester, [facility], Office: [phone] AND CONFIRMED THAT PT IS ACCEPTED. PT TO BE D/C TO [facility] FOR SUPERVISED 10 DAYS MEDICATION MANAGEMENT. KEO UPDATED PT'S NASEEM WORKMAN. PT TO BE PICKED UP BY TRANSPORTER BETWEEN 5:3-00-5:30. KEO REMAINS AVAILABLE FOR F/U NEEDED. Addendum: 03/30/18 at 1032 by JONNIE BERNARDO PT SIGNED THE HOMELESS DISCHARGE CONSENT FORM AND COPY WAS PLACED IN CHART. PT PROVIDE CLOTHING AND DISCHARGE INSTRUCTIONS REGARDING F/U MEDICAL CARE. [facility] WILL ASSIST PT WITH LINKAGE TO COMMUNITY RESOURCES INCLUDING HOUSING PLACEMENT.
--- NOTE | 2018-03-27 17:28 | NUR ---
Discharge: Patient was d/c to [facility], rx given and d/c instruction, pt verbalize understanding. IV removed, angiocath intact. PT is a/o x4, able to communicate needs. Pt has FWW provided by porter sample case and social media manager [place] provided patient with clothes. Patient has all of the belonging and accompanied by Aniyah lawson for the center.
== END 2018-03-27 17:25 | disposition home health service (06) | DRG 481 ==
LOC: E/R 09:07 → 2NE 11:10
PROVIDERS: ADMIT Internal Medicine; ATTEND Hospitalist
PROC: 0QS706Z Reposition Left Upper Femur with Intramedullary Internal Fixation Device, Open Approach (ICD-10-PCS; principal; 2018-03-22 12:00)
DX: S72.142A Displaced intertrochanteric fracture of left femur, initial encounter for closed fracture (principal); E44.0 Moderate protein-calorie malnutrition; Z68.1 Body mass index [BMI] 19.9 or less, adult; I10 Essential (primary) hypertension; E11.9 Type 2 diabetes mellitus without complications; E78.5 Hyperlipidemia, unspecified; W11.XXXA Fall on and from ladder, initial encounter; F99 Mental disorder, not otherwise specified
CPT/HCPCS: 36415; 71045; 73500; 73510; 73530; 73550; 73700; 80048; 80053; 80061; 82550; 82553; 82962; 83036; 83735; 84100; 84443; 84484; 85025; 85610; 85730; 93005; 96374; 97110; 97116; 97161; 97530; J0690; J1650; J1815; J2250; J2270; J2274; J2405; J3010; J7030

== ENCOUNTER 2018-04-12 23:53 | Emergency (ER) | payer OTHER ==
[~2018-04-12] VITALS: Ht 188 cm; Wt 86.0 kg
[~2018-04-12 23:53] MED LIST changes: -ACET500C5 PO; +ASPI325T32 PO; -ASPI81TA52 PO; -BENZ200C68 PO; -BUS5 PO; +BUSP10TA2 PO; -CEPH-443 PO; -CLIN300C10 PO; -D-ME473S2 PO; -HYDR-4011 PO; -IBUP-1542 PO; -IBUP800T48 PO; -SULF1TAB31 PO; -TRAM50TA2 PO
[2018-04-12 23:57] VITALS: BP 144/94; PULSE 90; RESP 18; Ht 188 cm; Wt 86.0 kg
[2018-04-13] MEDS ORDERED: NALO4SPR NS (01:05)
--- NOTE | 2018-04-13 01:05 | ERD ---
ER Documentation Chief Complaint Chief Complaint LEFT SIDE HIP PAIN; HIP SX 03/21/2018 HPI 43-year-old gentleman well-known to this emergency department for chronic pain issues presents asking for IV or IM narcotics. The patient states that he had left hip surgery at the end of February. He states that he was just released from his rehab facility and states that he lost all of his chronic pain medications. Patient describes moderate throbbing pain to the left hip. No recent falls or injuries. He is asking for food and crutches. ROS All systems reviewed and are negative except as per history of present illness. Medications Home Meds Active Scripts Aspirin* (Aspirin* EC) 325 Mg Tab, 325 MG PO DAILY, #30 TAB 5 Refills Prov:RUSTY HUERTA S. 03/23/18 Reported Medications Buspirone Hcl* (Buspirone Hcl*) 10 Mg Tab, 15 MG PO TID, TAB 03/21/18 Haloperidol* (Haldol*) 5 Mg Tab, 5 MG PO QHS, TAB 10/26/17 Lisinopril* (Lisinopril*) 40 Mg Tablet, 40 MG PO DAILY, #30 TAB 10/26/17 Atorvastatin* (Atorvastatin*) 40 Mg Tablet, 40 MG PO QHS, #30 TAB 10/26/17 Metformin* (Glucophage*) 1,000 Mg Tablet, 1000 MG PO BID, #60 TAB 10/17/17 Allergies Allergies: Coded Allergies: latex (Unverified Allergy, Unknown, 02/16/18) PMhx/Soc History of Surgery: Yes (BROKEN JAW SURGERY, L HIP SX ) Anesthesia Reaction: No Hx Neurological Disorder: No Hx Respiratory Disorders: No Hx Cardiac Disorders: Yes (HTN ) Hx Psychiatric Problems: No (PT DENIES BUT TAKES BUSPAR) Hx Miscellaneous Medical Probl: Yes (HOMELESSNESS) Hx Alcohol Use: No Hx Substance Use: Yes (MARIJUANA ) Hx Tobacco Use: Yes Smoking Status: Current every day smoker FmHx Family History: No diabetes Physical Exam Vitals Vital Signs Date Temp Pulse Resp B/P (MAP) Pulse Ox O2 O2 Flow FiO2 Time Delivery Rate 04/12/18 97.3 90 18 144/94 98 23:57 (111) Physical Exam General: Slightly disheveled but no distress Head: Normocephalic, atraumatic. Eyes: EOM intact ENT: Moist mucous membranes Neck: Full ROM Respiratory: No respiratory distress Cardiovascular: Well perfused distally Abdominal: Nondistended : Deferred MSK: No edema, no unilateral swelling, 5/5 strength, normal internal and external rotation of the left hip without erythema warmth or focal tenderness. Neurologic: Alert and oriented, moving all extremities, normal speech, steady gait Skin: No rash Psych: Normal mood Procedures/MDM A combination of electronic medical record review, CURES database review and patient behavior in the emergency room are concerning for drug-seeking and/or narcotic dependence behavior. In my opinion further use of IV or IM narcotics in this patient is not warranted unless clinical scenario changes. In addition, we should use caution prescribing chronic narcotic and/or benzodiazepine medications from the emergency room. A single provider should be dispensing this type of medication. The patient was informed. The patient's MARCUS report reveals 41 visits in the last 12 months to [facility] for pain related issues. The patient has a chronic pain care plan. I do not feel comfortable refilling this patient's narcotic medications. The patient was given a single dose of Veteran here. He was given crutches and food. No evidence of fracture or infection or comp location related to his surgery. This is consistent with his chronic pain And drug- seeking behavior. The patient does not have an identifiable emergent medical condition that warrants inpatient hospitalization at this time. The patient is deemed safe for discharge with outpatient follow-up. We discussed follow up with the patient's primary care doctor within 24 to 48 hours as needed. We also discussed return to the emergency room for worsening symptoms or worsening condition. Outpatient referral: [None required] Discharge Medications: Narcan The patient has been educated on overdose prevention and the use of naloxone. The patient is a candidate for a prescription of naloxone based on one or more of the following high-risk criteria: 1. Patient with history of overdose 2. Patient with history of substance use disorder 3. Patient given concurrent prescription for opioids and benzodiazepines 4. Patient given prescription of > 90 morphine milligram equivalents per day Departure Diagnosis: Primary Impression: Chronic pain Chronic pain type: other chronic pain Qualified Codes: G89.29 - Other chronic pain Additional Impression: Left hip pain Condition: Stable Patient Instructions: Chronic Pain Referrals: COMMUNITY CLINICS YOU HAVE RECEIVED A MEDICAL SCREENING EXAM AND THE RESULTS INDICATE THAT YOU DO NOT HAVE A CONDITION THAT REQUIRES URGENT TREATMENT IN THE EMERGENCY DEPARTMENT. FURTHER EVALUATION AND TREATMENT OF YOUR CONDITION CAN WAIT UNTIL YOU ARE SEEN IN YOUR DOCTORS OFFICE WITHIN THE NEXT 1-2 DAYS. IT IS YOUR RESPONSIBILITY TO MAKE AN APPOINTMENT FOR FOLOW-UP CARE. IF YOU HAVE A PRIMARY DOCTOR --you should call your primary doctor and schedule an appointment IF YOU DO NOT HAVE A PRIMARY DOCTOR YOU CAN CALL OUR PHYSICIAN REFERRAL HOTLINE AT IF YOU CAN NOT AFFORD TO SEE A PHYSICIAN YOU CAN CHOSE FROM THE FOLLOWING [facility] [address] [facility] [address] [facility] [facility] [address] [facility] [facility] [address] [facility] [facility] [address] [facility] [facility] [address] [facility]. [facility] YOU HAVE RECEIVED A MEDICAL SCREENING EXAM AND THE RESULTS INDICATE THAT YOU DO NOT HAVE A CONDITION THAT REQUIRES URGENT TREATMENT IN THE EMERGENCY DEPARTMENT. FURTHER EVALUATION AND TREATMENT OF YOUR CONDITION CAN WAIT UNTIL YOU ARE SEEN IN YOUR DOCTORS OFFICE WITHIN THE NEXT 1-2 DAYS. IT IS YOUR RESPONSIBILITY TO MAKE AN APPOINTMENT FOR FOLOW-UP CARE. IF YOU HAVE A PRIMARY DOCTOR --you should call your primary doctor and schedule and appointment IF YOU DO NOT HAVE A PRIMARY DOCTOR YOU CAN CALL OUR PHYSICIAN REFERRAL HOTLINE AT . IF YOU CAN NOT AFFORD TO SEE A PHYSICIAN YOU CAN CHOSE FROM THE FOLLOWING [facility] INSTITUTIONS: [facility] [address] [place] [address] [facility] [address] [place] [address] [facility] [address] [place] [address] Additional Instructions: Call your primary care doctor TOMORROW for an appointment during the next 1 WEEK.Tell the national secretary that you were referred from this facility.See the doctor sooner or return here if your condition worsens before your appointment time. MICHAEL MONTOYA MD Apr 13, 2018 01:05
[2018-04-13] MEDS ORDERED: HYDROCODONE/APAP (10/325) TAB PO ONE (01:30)
[2018-04-15] MEDS ORDERED: IBUP800T48 PO (21:30)
== END 2018-04-13 01:47 | disposition home or self-care (01) ==
LOC: E/R 23:53
DX: M25.552 Pain in left hip (principal); I10 Essential (primary) hypertension; F17.210 Nicotine dependence, cigarettes, uncomplicated; Z79.82 Long term (current) use of aspirin; Z79.84 Long term (current) use of oral hypoglycemic drugs; Z91.040 Latex allergy status
CPT/HCPCS: Z7502; Z7610; 99283

== ENCOUNTER 2018-04-18 07:26 | Emergency (ER) | payer OTHER ==
[~2018-04-18] VITALS: Wt 80.0 kg
[~2018-04-18 07:26] MED LIST changes: +IBUP800T48 PO; +NALO4SPR NS
[2018-04-18 07:30] VITALS: BP 170/85; PULSE 95; RESP 18
== END 2018-04-18 08:38 | disposition left against medical advice (07) ==
LOC: FTE 07:26
DX: Z53.21 Procedure and treatment not carried out due to patient leaving prior to being seen by health care provider (principal)

== ENCOUNTER 2018-04-19 21:15 | Emergency (ER) | payer OTHER ==
[~2018-04-19] VITALS: Ht 193 cm; Wt 88.5 kg
[2018-04-19 21:18] VITALS: BP 139/79; PULSE 102; RESP 20; Ht 193 cm; Wt 88.5 kg
--- NOTE | 2018-04-20 00:34 | ERD ---
ER Documentation Chief Complaint Chief Complaint L hip pain x1 week, states he fractured it on 03/21. walks w/ cane HPI 43-year-old male who was seen here frequently for chronic pain and is known by myself and ER staff for same. Is here complaining of left hip pain. No new injury or trauma. He did recently break his hip. No fevers. He is ambulatory with a cane. ROS All systems reviewed and are negative except as per history of present illness. Medications Home Meds Active Scripts Ibuprofen* (Motrin*) 800 Mg Tab, 800 MG PO Q6, #30 TAB Prov:AYDEN ROGERS PA-C 04/15/18 Naloxone HCl nasal spray (Narcan 4 mg/0.1 mL nasal) 4 Mg [place], 4 MG NS prn overdose, #1 SPRAY 2 Refills Prov:MICHAEL MONTOYA MD 04/13/18 Aspirin* (Aspirin* EC) 325 Mg Tab, 325 MG PO DAILY, #30 TAB 5 Refills Prov:RUSTY HUERTA 03/23/18 Reported Medications Buspirone Hcl* (Buspirone Hcl*) 10 Mg Tab, 15 MG PO TID, TAB 03/21/18 Haloperidol* (Haldol*) 5 Mg Tab, 5 MG PO QHS, TAB 10/26/17 Lisinopril* (Lisinopril*) 40 Mg Tablet, 40 MG PO DAILY, #30 TAB 10/26/17 Atorvastatin* (Atorvastatin*) 40 Mg Tablet, 40 MG PO QHS, #30 TAB 10/26/17 Metformin* (Glucophage*) 1,000 Mg Tablet, 1000 MG PO BID, #60 TAB 10/17/17 Allergies Allergies: Coded Allergies: latex (Unverified Allergy, Unknown, 02/16/18) PMhx/Soc History of Surgery: Yes (LEFT HIP SURGERY DUE TO FRACTURE) Anesthesia Reaction: No Hx Neurological Disorder: No Hx Respiratory Disorders: No Hx Cardiac Disorders: No Hx Psychiatric Problems: No Hx Miscellaneous Medical Probl: No Hx Alcohol Use: No Hx Substance Use: No Hx Tobacco Use: No FmHx Family History: No diabetes Physical Exam Vitals Vital Signs Date Temp Pulse Resp B/P (MAP) Pulse Ox O2 O2 Flow FiO2 Time Delivery Rate 04/19/18 98.0 102 20 139/79 100 21:18 (99) Physical Exam INITIAL VITAL SIGNS: Reviewed by me GENERAL: Awake, alert and oriented x 4, well appearing, nontoxic, speaking in full sentences. No acute distress RESPIRATORY: Clear to auscultation bilaterally. Symmetric chest wall rise. No wheezing or rales. No accessory muscle use. CV: Regular rate and rhythm. No murmurs, rubs, or gallops. EXTREMITIES: No clubbing or cyanosis. No edema. Moving all extremities normally. Results 24 hrs Current Medications Medications Dose Sig/Orville Start Time Status Last (Trade) Ordered Route PRN Stop Time Admin Dose Reason Admin 1 tab ONCE ONCE 04/20/18 Acetaminophen PO 01:00 / 04/20/18 01:01 Hydrocodone Bitart (Brinson (5/325)) Procedures/MDM Patient is here with chronic pain. He was given one Brinson. Discharge with no medications. He can take Tylenol and/or Motrin at home. Patient counseled regarding my diagnostic impression and care plan. Prior to discharge all questions answered. Pt agrees with treatment plan and understands strict return precautions. Pt is instructed to follow up with primary care provider within 24- 48 hours. Precautionary instructions provided including instructions to return to the ER if not improving or for any worsening or changing symptoms or concerns. Departure Diagnosis: Primary Impression: Chronic pain Condition: Stable Patient Instructions: Chronic Pain Additional Instructions: Call your primary care doctor TOMORROW for an appointment during the next 1-2 days.See the doctor sooner or return here if your condition worsens before your appointment time. JEREMIAH PENA PA-C Apr 20, 2018 00:34
[2018-04-20] MEDS ORDERED: HYDROCODONE/APAP (5/325) TAB PO ONE (01:00)
== END 2018-04-20 01:23 | disposition home or self-care (01) ==
LOC: FTE 21:15
DX: G89.29 Other chronic pain (principal); E11.9 Type 2 diabetes mellitus without complications; Z79.82 Long term (current) use of aspirin; Z79.84 Long term (current) use of oral hypoglycemic drugs
CPT/HCPCS: 99282

== ENCOUNTER 2018-05-09 00:44 | Emergency (ER) | payer OTHER ==
[~2018-05-09] VITALS: Ht 193 cm; Wt 89.6 kg
[2018-05-09 00:50] VITALS: BP 164/105; PULSE 94; RESP 18; Ht 193 cm; Wt 89.6 kg
[2018-05-09] MEDS ORDERED: KETOROLAC 30 MG INJ IM STA (02:05)
[2018-05-09] MEDS ORDERED: morphine 4 MG/ML VIAL IM STA (02:05)
--- NOTE | 2018-05-09 02:05 | ERD ---
ER Documentation Chief Complaint Chief Complaint L HIP PAIN X1 WEEK.NO INJURY HPI This is a 43-year-old male who presents emergency department with complaints of left hip/left lower back pain that radiates to left lower extremity for about a week and got worse today. Patient also stated that this usually happens when cold weather. No recent injuries. Stated that he has history of left hip surgery. Patient stated that he has no trouble walking. No fever or chills. ROS All systems reviewed and are negative except as per history of present illness. Medications Home Meds Active Scripts Metaxalone* (Skelaxin*) 800 Mg Tablet, 800 MG PO TID PRN for MUSCLE SPASMS, #15 TAB Prov:PASILABAN,KLAR F 05/09/18 Ibuprofen* (Motrin*) 800 Mg Tab, 800 MG PO Q6H PRN for PAIN AND OR ELEVATED TEMP, #30 TAB Prov:PASILABAN,KLAR F 05/09/18 Ibuprofen* (Motrin*) 800 Mg Tab, 800 MG PO Q6, #30 TAB Prov:AYDEN ROGERS PA-C 04/15/18 Naloxone HCl nasal spray (Narcan 4 mg/0.1 mL nasal) 4 Mg [place], 4 MG NS prn overdose, #1 SPRAY 2 Refills Prov:MICHAEL MONTOYA MD 04/13/18 Aspirin* (Aspirin* EC) 325 Mg Tab, 325 MG PO DAILY, #30 TAB 5 Refills Prov:RUSTY HUERTA 03/23/18 Reported Medications Buspirone Hcl* (Buspirone Hcl*) 10 Mg Tab, 15 MG PO TID, TAB 03/21/18 Haloperidol* (Haldol*) 5 Mg Tab, 5 MG PO QHS, TAB 10/26/17 Lisinopril* (Lisinopril*) 40 Mg Tablet, 40 MG PO DAILY, #30 TAB 10/26/17 Atorvastatin* (Atorvastatin*) 40 Mg Tablet, 40 MG PO QHS, #30 TAB 10/26/17 Metformin* (Glucophage*) 1,000 Mg Tablet, 1000 MG PO BID, #60 TAB 10/17/17 Allergies Allergies: Coded Allergies: latex (Unverified Allergy, Unknown, 02/16/18) PMhx/Soc History of Surgery: Yes (left hip) Anesthesia Reaction: No Hx Neurological Disorder: No Hx Respiratory Disorders: No Hx Cardiac Disorders: No Hx Psychiatric Problems: No Hx Miscellaneous Medical Probl: No Hx Alcohol Use: No Hx Substance Use: No Hx Tobacco Use: No Physical Exam Vitals Vital Signs Date Temp Pulse Resp B/P (MAP) Pulse Ox O2 O2 Flow FiO2 Time Delivery Rate 05/09/18 98.2 94 18 164/105 100 00:50 (124) Physical Exam Const: No acute distress Head: Atraumatic Eyes: Normal Conjunctiva ENT: Normal External Ears, Nose and Mouth. Neck: Full range of motion. No meningismus. Resp: Clear to auscultation bilaterally Cardio: Regular rate and rhythm, no murmurs Abd: Soft, non tender, non distended. Normal bowel sounds Skin: No petechiae or rashes Back: No midline or flank tenderness Ext: No cyanosis, or edema. Bilateral lower extremities are symmetrical. Positive left straight leg test. No calf tenderness bilaterally. Bilateral hips are stable and unremarkable. Patient is able to perform a squat. Able to bear weight on left lower extremity. Able to bear weight on right lower extremity. No neurovascular deficit. Ambulatory with steady gait. Neur: Awake and alert. No neurological deficit. Psych: Normal Mood and Affect Results 24 hrs Current Medications Medications Dose Sig/Orville Start Time Status Last (Trade) Ordered Route PRN Stop Time Admin Dose Reason Admin Morphine 4 mg ONCE STAT 05/09/18 DC 05/09/18 Sulfate IM 02:05 02:25 (morphine) 05/09/18 02:06 Ketorolac 30 mg ONCE STAT 05/09/18 DC 05/09/18 Tromethamine IM 02:05 02:25 (Toradol) 05/09/18 02:06 Procedures/MDM Diagnostic tests: He strongly refused diagnostic tests/imaging/UA/blood works.Stated that he would rather be treated with pain medicine and will go home. Treatment: Toradol IM. Morphine IM. Re-evaluation: Denies hip pain. Bilateral hips are stable and unremarkable. Symmetrical bilateral lower extremities. Able to perform squat. Able to bear weight on left lower extremity. Able to bear weight on right lower extremity. No saddle anesthesia. No neurovascular deficit. Ambulatory with steady gait. Differential diagnosis I have low suspicion for septic joint, hip displacement, hip fracture, malunion, kidney stones, DVT, compartment syndrome. Final diagnosis: Chronic left hip pain. Prescription: Motrin. Skelaxin. Follow-up with PCP in the next 24-48 hours. PCP to refer patient to pain specialist in the next 3-4 days. Follow-up with orthopedic surgeon in the next 3-4 days. Come back here in the emergency department for any new symptoms or any worsening symptoms. All questions and concerns were answered. Patient and family members verbalized understanding and agreed with plan of care. Hemodynamically stable on discharge. I offered the patient imaging but Departure Diagnosis: Primary Impression: Hip pain Additional Impressions: Chronic jaw pain Sciatica Condition: Stable Additional Instructions: Follow-up with PCP in the next 24-48 hours. PCP to refer patient to pain specialist in the next 3-4 days. Follow-up with orthopedic surgeon in the next 3-4 days. Come back here in the emergency department for any new symptoms or any worsening symptoms. LUCIA GURROLA May 09, 2018 02:05
[2018-05-09] MEDS ORDERED: IBUP800T48 PO (02:07)
[2018-05-09] MEDS ORDERED: META-121 PO (02:08)
== END 2018-05-09 03:34 | disposition left against medical advice (07) ==
LOC: FTE 00:44
DX: M25.552 Pain in left hip (principal); R68.84 Jaw pain; M54.42 Lumbago with sciatica, left side; Z79.82 Long term (current) use of aspirin; Z79.84 Long term (current) use of oral hypoglycemic drugs
CPT/HCPCS: 96372; J1885; J2270; Z7502

== ENCOUNTER 2018-06-25 00:04 | Emergency (ER) | payer SELFPAY ==
[~2018-06-25] VITALS: Ht 188 cm; Wt 88.4 kg
[~2018-06-25 00:04] MED LIST changes: +META-121 PO
[2018-06-25 00:14] VITALS: BP 148/81; PULSE 94; RESP 16; Ht 188 cm; Wt 88.4 kg
== END 2018-06-25 02:00 | disposition left against medical advice (07) ==
LOC: FTE 00:04
DX: Z53.21 Procedure and treatment not carried out due to patient leaving prior to being seen by health care provider (principal)
CPT/HCPCS: 82962

== ENCOUNTER 2018-06-27 03:30 | Emergency (ER) | payer OTHER ==
[~2018-06-27] VITALS: Ht 193 cm; Wt 87.0 kg
[2018-06-27 03:37] VITALS: BP 143/73; PULSE 86; RESP 18; Ht 193 cm; Wt 87.0 kg
--- NOTE | 2018-06-27 06:10 | ERD ---
ER Documentation Chief Complaint Chief Complaint wound check/open blisters left foot x 1 week ROS All systems reviewed and are negative except as per history of present illness. Medications Home Meds Active Scripts Metaxalone* (Skelaxin*) 800 Mg Tablet, 800 MG PO TID PRN for MUSCLE SPASMS, #15 TAB Prov:KIKE GURROLAAR F 05/09/18 Ibuprofen* (Motrin*) 800 Mg Tab, 800 MG PO Q6H PRN for PAIN AND OR ELEVATED TEMP, #30 TAB Prov:JANNETILAKIKE GEORGEAR F 05/09/18 Ibuprofen* (Motrin*) 800 Mg Tab, 800 MG PO Q6, #30 TAB Prov:AYDEN ROGERS PA-C 04/15/18 Naloxone HCl nasal spray (Narcan 4 mg/0.1 mL nasal) 4 Mg [place], 4 MG NS prn overdose, #1 SPRAY 2 Refills Prov:MICHAEL MONTOYA MD 04/13/18 Aspirin* (Aspirin* EC) 325 Mg Tab, 325 MG PO DAILY, #30 TAB 5 Refills Prov:RUSTY HUERTA 03/23/18 Reported Medications Buspirone Hcl* (Buspirone Hcl*) 10 Mg Tab, 15 MG PO TID, TAB 03/21/18 Haloperidol* (Haldol*) 5 Mg Tab, 5 MG PO QHS, TAB 10/26/17 Lisinopril* (Lisinopril*) 40 Mg Tablet, 40 MG PO DAILY, #30 TAB 10/26/17 Atorvastatin* (Atorvastatin*) 40 Mg Tablet, 40 MG PO QHS, #30 TAB 10/26/17 Metformin* (Glucophage*) 1,000 Mg Tablet, 1000 MG PO BID, #60 TAB 10/17/17 Allergies Allergies: Coded Allergies: latex (Unverified Allergy, Unknown, 02/16/18) PMhx/Soc History of Surgery: Yes (left hip) Anesthesia Reaction: No Hx Neurological Disorder: No Hx Respiratory Disorders: No Hx Cardiac Disorders: No Hx Psychiatric Problems: No Hx Miscellaneous Medical Probl: No Hx Alcohol Use: No Hx Substance Use: No Hx Tobacco Use: No Physical Exam Vitals Vital Signs Date Temp Pulse Resp B/P (MAP) Pulse Ox O2 O2 Flow FiO2 Time Delivery Rate 06/27/18 97.7 86 18 143/73 98 03:37 (96) Procedures/MDM Patient left the emergency department without being seen by me. Departure Diagnosis: Primary Impression: Eloped from emergency department EDWIGE BILL MD Jun 27, 2018 06:10
== END 2018-06-27 06:59 | disposition left against medical advice (07) ==
LOC: FTE 03:30
DX: Z48.01 Encounter for change or removal of surgical wound dressing (principal)
CPT/HCPCS: 99281

== ENCOUNTER 2018-07-07 00:45 | Emergency (ER) | payer SELFPAY ==
[~2018-07-07] VITALS: Ht 182.9 cm; Wt 88.3 kg
[2018-07-07 00:55] VITALS: BP 146/79; PULSE 79; RESP 16; Ht 182.9 cm; Wt 88.3 kg
== END 2018-07-07 02:00 | disposition left against medical advice (07) ==
LOC: FTE 00:45
DX: Z53.21 Procedure and treatment not carried out due to patient leaving prior to being seen by health care provider (principal)

== ENCOUNTER 2018-07-18 12:46 | Emergency (ER) | payer OTHER ==
[~2018-07-18] VITALS: Ht 193 cm; Wt 87.0 kg
[2018-07-18 12:50] VITALS: BP 131/72; PULSE 75; RESP 18; Ht 193 cm; Wt 87.0 kg
[2018-07-18] MEDS ORDERED: FLUT9.9S NASAL (13:14)
--- NOTE | 2018-07-18 13:23 | ERD ---
ER Documentation Chief Complaint Chief Complaint R ventral heel painful wound HPI 43-year-old man with history of diabetes complains of chronic ulceration to the medial aspect of the right lower ankle just inferior to the medial malleolus. He has had no redness to the site, no discharge, no fevers or chills, no dif ficulty ambulating. He also complains of nasal congestion and rhinorrhea and suspects he has a cold. ROS All systems reviewed and are negative except as per history of present illness. Medications Home Meds Active Scripts Fluticasone Propionate (Flonase Allergy Relief) 9.9 Ml [place].susp, 1 SPRAY NASAL BID, #1 BOTTLE TO EACH NOSTRIL Prov:PALLAVI HEWITT MD 07/18/18 Metaxalone* (Skelaxin*) 800 Mg Tablet, 800 MG PO TID PRN for MUSCLE SPASMS, #15 TAB Prov:PASILABANKIKEAR F 05/09/18 Ibuprofen* (Motrin*) 800 Mg Tab, 800 MG PO Q6H PRN for PAIN AND OR ELEVATED TEMP, #30 TAB Prov:PASILALUCIA GEORGE F 05/09/18 Ibuprofen* (Motrin*) 800 Mg Tab, 800 MG PO Q6, #30 TAB Prov:AYDEN ROGERS PA-C 04/15/18 Naloxone HCl nasal spray (Narcan 4 mg/0.1 mL nasal) 4 Mg [place], 4 MG NS prn overdose, #1 SPRAY 2 Refills Prov:MICHAEL MONTOYA MD 04/13/18 Aspirin* (Aspirin* EC) 325 Mg Tab, 325 MG PO DAILY, #30 TAB 5 Refills Prov:RUSTY HUERTA 03/23/18 Reported Medications Buspirone Hcl* (Buspirone Hcl*) 10 Mg Tab, 15 MG PO TID, TAB 03/21/18 Haloperidol* (Haldol*) 5 Mg Tab, 5 MG PO QHS, TAB 10/26/17 Lisinopril* (Lisinopril*) 40 Mg Tablet, 40 MG PO DAILY, #30 TAB 10/26/17 Atorvastatin* (Atorvastatin*) 40 Mg Tablet, 40 MG PO QHS, #30 TAB 10/26/17 Metformin* (Glucophage*) 1,000 Mg Tablet, 1000 MG PO BID, #60 TAB 10/17/17 Allergies Allergies: Coded Allergies: latex (Unverified Allergy, Unknown, 02/16/18) PMhx/Soc Diabetes mellitus History of Surgery: Yes (left hip) Anesthesia Reaction: No Hx Neurological Disorder: No Hx Respiratory Disorders: No Hx Cardiac Disorders: No Hx Psychiatric Problems: No Hx Miscellaneous Medical Probl: No Hx Alcohol Use: No Hx Substance Use: No Hx Tobacco Use: No FmHx Family History: No diabetes Physical Exam Vitals Vital Signs Date Temp Pulse Resp B/P (MAP) Pulse Ox O2 O2 Flow FiO2 Time Delivery Rate 07/18/18 97.9 75 18 131/72 100 12:50 (91) Physical Exam GENERAL: Well-developed, well-nourished, well-hydrated, in no apparent distress, looks nontoxic in appearance HEENT: Moist mucous membranes, pink conjunctiva, positive rhinorrhea, nasal congestion, no cervical spine tenderness or step-off deformities CARDIAC: Regular rate and rhythm, no murmurs rubs or gallops LUNGS: Clear bilaterally no wheezing crackles or stridor SKIN: Warm and dry to touch, chronic appearing dry skin with horizontal chafing and cracking to the right medial ankle just inferior to the medial malleolus. This may represent an old healing laceration there is no skin erythema or induration, no purulent discharge EXTREMITIES: No clubbing cyanosis or edema, calves are bilaterally symmetrical, no Homans sign, no popliteal cord sign. Distal pulses equal and bilateral PSYCH: Normal affect without agitation or irritability Results 24 hrs Current Medications Medications Dose Sig/Orville Start Time Status Last (Trade) Ordered Route PRN Stop Time Admin Dose Reason Admin Ibuprofen 600 mg ONCE ONCE 07/18/18 (Motrin) PO 13:30 07/18/18 13:31 Mupirocin 1 applic ONCE ONCE 07/18/18 (Bactroban) TOP 13:30 07/18/18 13:31 Procedures/MDM I ordered mupirocin 2% antibiotic ointment and it was applied to the right medial ankle, patient was given this tube and recommendation was for twice a day application x2 weeks. I doubt acute infection although this may help with prophylaxis I also administered ibuprofen 600 mg p.o. x1. Patient feels much better at this time, and vital signs are normal, symptoms have improved. I did give strict instructions to return to the ED if symptoms continue or worsen, patient will otherwise follow-up with primary care physician. Patient understood instructions and agreed to plan. Disclaimer: Inadvertent spelling and grammatical errors are likely due to EHR/dictation software use and do not reflect on the overall quality of patient care. Also, please note that the electronic time recorded on this note does not necessarily reflect the actual time of the patient encounter. Departure Diagnosis: Primary Impression: URI (upper respiratory infection) URI type: acute nasopharyngitis (common cold) Qualified Codes: J00 - Acute nasopharyngitis [common cold] Additional Impression: Skin abrasion Condition: Good Patient Instructions: Uri, Viral, No Abx (Adult), Skin Ulcer, Simple PALLAVI HEWITT MD Jul 18, 2018 13:23
[2018-07-18] MEDS ORDERED: IBUPROFEN 600 MG TAB PO ONE (13:30)
[2018-07-18] MEDS ORDERED: MUPIROCIN 2% 22 GM OINT TOP ONE (13:30)
== END 2018-07-18 13:29 | disposition home or self-care (01) ==
LOC: E/R 12:46
DX: J00 Acute nasopharyngitis [common cold] (principal); E11.9 Type 2 diabetes mellitus without complications; S90.512A Abrasion, left ankle, initial encounter; X58.XXXA Exposure to other specified factors, initial encounter; Y92.9 Unspecified place or not applicable; Z79.82 Long term (current) use of aspirin; Z79.84 Long term (current) use of oral hypoglycemic drugs; Z91.040 Latex allergy status
CPT/HCPCS: Z7502; Z7610; 99283

== ENCOUNTER 2018-07-20 01:48 | Emergency (ER) | payer OTHER ==
[~2018-07-20] VITALS: Ht 193 cm; Wt 85.3 kg
[~2018-07-20 01:48] MED LIST changes: +FLUT9.9S NASAL
[2018-07-20 01:56] VITALS: BP 249/92; PULSE 88; RESP 18; Ht 193 cm; Wt 85.3 kg
[2018-07-20] MEDS ORDERED: IBUPROFEN 600 MG TAB PO ONE (04:00)
--- NOTE | 2018-07-20 04:34 | ERD ---
ER Documentation Chief Complaint Chief Complaint RIGHT LEG WOUND CHECK [id number] HPI 43-year-old male, presents the emergency department, complaining of right leg pain. The patient denies any recent trauma, no fever, no chills, the patient reports skin abrasion on the right foot, probably caused by inadequate shoes. ROS All systems reviewed and are negative except as per history of present illness. Medications Home Meds Active Scripts Ibuprofen* (Motrin*) 400 Mg Tab, 400 MG PO Q6H PRN for PAIN AND OR ELEVATED TEMP, #30 TAB Prov:EDWIGE BILL MD 07/20/18 Acetaminophen* (Tylenol*) 325 Mg Tablet, 2 TAB PO Q6 PRN for PAIN AND OR ELEVATED TEMP, #20 TAB Prov:EDWIGE BILL MD 07/20/18 Fluticasone Propionate (Flonase Allergy Relief) 9.9 Ml [place].susp, 1 SPRAY NASAL BID, #1 BOTTLE TO EACH NOSTRIL Prov:PALLAVI HEWITT MD 07/18/18 Metaxalone* (Skelaxin*) 800 Mg Tablet, 800 MG PO TID PRN for MUSCLE SPASMS, #15 TAB Prov:LUCIA GURROLA F 05/09/18 Ibuprofen* (Motrin*) 800 Mg Tab, 800 MG PO Q6H PRN for PAIN AND OR ELEVATED TEMP, #30 TAB Prov:PASILAKIKE GEORGEAR F 05/09/18 Ibuprofen* (Motrin*) 800 Mg Tab, 800 MG PO Q6, #30 TAB Prov:AYDEN ROGERS PA-C 04/15/18 Naloxone HCl nasal spray (Narcan 4 mg/0.1 mL nasal) 4 Mg [place], 4 MG NS prn overdose, #1 SPRAY 2 Refills Prov:MICHAEL MONTOYA MD 04/13/18 Aspirin* (Aspirin* EC) 325 Mg Tab, 325 MG PO DAILY, #30 TAB 5 Refills Prov:RUSTY HUERTA 03/23/18 Reported Medications Buspirone Hcl* (Buspirone Hcl*) 10 Mg Tab, 15 MG PO TID, TAB 03/21/18 Haloperidol* (Haldol*) 5 Mg Tab, 5 MG PO QHS, TAB 10/26/17 Lisinopril* (Lisinopril*) 40 Mg Tablet, 40 MG PO DAILY, #30 TAB 10/26/17 Atorvastatin* (Atorvastatin*) 40 Mg Tablet, 40 MG PO QHS, #30 TAB 10/26/17 Metformin* (Glucophage*) 1,000 Mg Tablet, 1000 MG PO BID, #60 TAB 10/17/17 Allergies Allergies: Coded Allergies: latex (Unverified Allergy, Unknown, 02/16/18) PMhx/Soc Medical and Surgical Hx: pt denies Medical Hx, pt denies Surgical Hx History of Surgery: Yes (left hip) Anesthesia Reaction: No Hx Neurological Disorder: No Hx Respiratory Disorders: No Hx Cardiac Disorders: No Hx Psychiatric Problems: No Hx Miscellaneous Medical Probl: No Hx Alcohol Use: Yes Hx Substance Use: No Hx Tobacco Use: Yes Smoking Status: Current every day smoker FmHx Family History: No diabetes Physical Exam Vitals Vital Signs Date Temp Pulse Resp B/P (MAP) Pulse Ox O2 O2 Flow FiO2 Time Delivery Rate 07/20/18 97.0 88 18 249/92 99 01:56 (144) Physical Exam Const: No acute distress Head: Atraumatic Eyes: Normal Conjunctiva ENT: Normal External Ears, Nose and Mouth. Neck: Full range of motion. No meningismus. Resp: Clear to auscultation bilaterally Cardio: Regular rate and rhythm, no murmurs Abd: Soft, non tender, non distended. Normal bowel sounds Skin: Erythematous rash in the right foot. Back: No midline or flank tenderness Ext: Superficial abrasion of the right lower extremity, no evidence of infection. Neur: Awake and alert Psych: Normal Mood and Affect Results 24 hrs Current Medications Medications Dose Sig/[place] Start Time Status Last (Trade) Ordered Route PRN Stop Time Admin Dose Reason Admin Ibuprofen 600 mg ONCE ONCE 07/20/18 DC 07/20/18 (Motrin) PO 04:00 03:44 07/20/18 04:01 Procedures/MDM No red flags. Differential diagnosis include but not limited to: Musculoskeletal injury, arthritis, fracture, DVT; low suspicion for acute limb ischemia, septic arthritis, necrotizing fasciitis, compartment syndrome. Neurovascular exam grossly intact. no clinical findings suggestive of acute infectious process, no acute deformity, no edema, no rashes. Physical examination and clinical presentation consistent most likely with right leg pain with superficial abrasions without evidence of infection. During the ED course the patient received treatment with ibuprofen and Tylenol presenting overall improvement of the symptoms. Results and clinical impression discussed with the patient who agrees with management. The patient is stable to be treated outpatient and will be discharged home with recommendations for ice, rest and NSAIDs 3 times daily for 5 days and close monitoring. The patient was instructed to follow up with the primary care provider in the next 48h. If symptoms persist, worsen or new symptoms develop, then patient should return to the ED immediately. Instructions explained and given to patient with acknowledgment and demonstrated understanding. Disclaimer: Inadvertent spelling and grammatical errors are likely due to EHR/dictation software use and do not reflect on the overall quality of patient care. Also, please note that the electronic time recorded on this note does not necessarily reflect the actual time of the patient encounter. Departure Diagnosis: Primary Impression: Pain of right leg Additional Impression: Abrasion of skin Condition: Stable Additional Instructions: Thank you very much for allowing us to participate in your care. Your health and safety is our top priority at [facility]. The evaluation in the emergency department has been done to rule out an acute emergency, therefore, chronic conditions like malignancy or other diseases have not been evaluated; therefore, you need to follow up with a primary care provider in the next 48h. If symptoms persist, worsen or new symptoms develop, then patient should return to the ED immediately. Call your primary care doctor TOMORROW for an appointment during the next 2-4 days and bring all the information provided. Have prescriptions filled and follow precisely the directions on the label. If the symptoms get worse and your provider is unavailable, return to the Emergency Department immediately. EDWIGE BILL MD Jul 20, 2018 04:34
[2018-07-20] MEDS ORDERED: ACET325T33 PO (04:36)
[2018-07-20] MEDS ORDERED: IBUP-1561 PO (04:36)
== END 2018-07-20 05:35 | disposition home or self-care (01) ==
LOC: FTE 01:48
DX: S90.811A Abrasion, right foot, initial encounter (principal); F17.210 Nicotine dependence, cigarettes, uncomplicated; X58.XXXA Exposure to other specified factors, initial encounter; Y92.9 Unspecified place or not applicable; Z91.040 Latex allergy status; Z79.82 Long term (current) use of aspirin; Z79.84 Long term (current) use of oral hypoglycemic drugs
CPT/HCPCS: 99282

== ENCOUNTER 2018-08-08 04:05 | Emergency (ER) | payer SELFPAY ==
[~2018-08-08] VITALS: Ht 193 cm; Wt 86.9 kg
[~2018-08-08 04:05] MED LIST changes: +ACET325T33 PO; +IBUP-1561 PO
[2018-08-08 04:10] VITALS: BP 141/84; PULSE 72; RESP 18; Ht 193 cm; Wt 86.9 kg
[2018-08-09] MEDS ORDERED: [UNRECOGNIZED DRUG - CODE] TP ×2 (05:46→05:47)
== END 2018-08-08 07:17 | disposition left against medical advice (07) ==
LOC: FTE 04:05
DX: Z53.21 Procedure and treatment not carried out due to patient leaving prior to being seen by health care provider (principal)

== ENCOUNTER 2018-08-09 04:52 | Emergency (ER) | payer OTHER ==
[~2018-08-09] VITALS: Ht 193 cm; Wt 84.0 kg
[2018-08-09 04:55] VITALS: Ht 193 cm; Wt 84.0 kg
[2018-08-09] MEDS ORDERED: [UNRECOGNIZED DRUG - CODE] TP ×2 (05:46→05:47)
--- NOTE | 2018-08-09 05:52 | ERD ---
ER Documentation Chief Complaint Chief Complaint right foot pain for a few months HPI 43-year-old male past medical history of diabetes presents with bilateral foot pain x1 year. He states that the toes are what hurts the most. He states that there is some discoloration. Is unclear why he has not seen his primary care physician for this reason. He is somewhat of a poor historian. He denies any fevers or chills. Denies chest pain or shortness of breath. States that he walks a lot. No other modifying factors noted, no treatments tried at home. ROS All systems reviewed and are negative except as per history of present illness. Medications Home Meds Active Scripts Ciclopirox Olamine (CICLODAN) 90 Gm Cream..g., 1 APPLIC TP DAILY for nail fungus, #1 TUB 0 Refills Prov:NIKKO BURK DO 08/09/18 Ibuprofen* (Motrin*) 400 Mg Tab, 400 MG PO Q6H PRN for PAIN AND OR ELEVATED TEMP, #30 TAB Prov:EDWIGE BILL MD 07/20/18 Acetaminophen* (Tylenol*) 325 Mg Tablet, 2 TAB PO Q6 PRN for PAIN AND OR ELEVATED TEMP, #20 TAB Prov:EDWIGE BILL MD 07/20/18 Fluticasone Propionate (Flonase Allergy Relief) 9.9 Ml [place].susp, 1 SPRAY NASAL BID, #1 BOTTLE TO EACH NOSTRIL Prov:PALLAVI HEWITT MD 07/18/18 Metaxalone* (Skelaxin*) 800 Mg Tablet, 800 MG PO TID PRN for MUSCLE SPASMS, #15 TAB Prov:PASILAKIKE GEORGEAR F 05/09/18 Ibuprofen* (Motrin*) 800 Mg Tab, 800 MG PO Q6H PRN for PAIN AND OR ELEVATED TEMP, #30 TAB Prov:PASILAKIKE GEORGEAR F 05/09/18 Ibuprofen* (Motrin*) 800 Mg Tab, 800 MG PO Q6, #30 TAB Prov:AYDEN ROGERS PA-C 04/15/18 Naloxone HCl nasal spray (Narcan 4 mg/0.1 mL nasal) 4 Mg [place], 4 MG NS prn overdose, #1 SPRAY 2 Refills Prov:MICHAEL MONTOYA MD 04/13/18 Aspirin* (Aspirin* EC) 325 Mg Tab, 325 MG PO DAILY, #30 TAB 5 Refills Prov:RUSTY HUERTA 03/23/18 Reported Medications Buspirone Hcl* (Buspirone Hcl*) 10 Mg Tab, 15 MG PO TID, TAB 03/21/18 Haloperidol* (Haldol*) 5 Mg Tab, 5 MG PO QHS, TAB 10/26/17 Lisinopril* (Lisinopril*) 40 Mg Tablet, 40 MG PO DAILY, #30 TAB 10/26/17 Atorvastatin* (Atorvastatin*) 40 Mg Tablet, 40 MG PO QHS, #30 TAB 10/26/17 Metformin* (Glucophage*) 1,000 Mg Tablet, 1000 MG PO BID, #60 TAB 10/17/17 Allergies Allergies: Coded Allergies: latex (Unverified Allergy, Unknown, 02/16/18) PMhx/Soc History of Surgery: Yes (left hip) Anesthesia Reaction: No Hx Neurological Disorder: No Hx Respiratory Disorders: No Hx Cardiac Disorders: No Hx Psychiatric Problems: No Hx Miscellaneous Medical Probl: No Hx Alcohol Use: Yes Hx Substance Use: No Hx Tobacco Use: Yes FmHx Family History: No coronary disease Physical Exam Vitals Vital Signs Date Temp Pulse Resp B/P (MAP) Pulse Ox O2 O2 Flow FiO2 Time Delivery Rate 08/09/18 97.6 80 18 156/85 98 04:55 (108) Physical Exam Const: No acute distress Resp: Clear to auscultation bilaterally Cardio: Regular rate and rhythm, no murmurs, peripheral pulses intact Skin: No petechiae or rashes Ext: Bilateral foot examination shows discoloration of the nails on toenails 1 through 3 of the right foot and toenails 1 and 2 on the left foot. Neur: Awake and alert, sensation intact on both feet Psych: Normal Mood and Affect Procedures/MDM Medical Decision Making: Patient presents with bilateral foot pain and internal discoloration Patient appeared well on physical exam. Examination consistent with onychomycosis Patient is a poor historian and appears that he will likely not be consistent with follow-up therefore oral medication for treatment of his onychomycosis was not given. It was decided the patient will be treated with topical treatment. Prescription(s): Patient given prescription for topical antifungal cream for the toenail onychomycosis. Patient advised to follow up with PCP in 1-2 days. Patient advised to return to ED for new or worsening symptoms. Patient stable on discharge from the ED. Disclaimer: Inadvertent spelling and grammatical errors are likely due to EHR/dictation software use and do not reflect on the overall quality of patient care. Also, please note that the electronic time recorded on this note does not necessarily reflect the actual time of the patient encounter. Departure Diagnosis: Primary Impression: Onychomycosis Condition: Fair Patient Instructions: Ciclopirox Nail Solution Referrals: [facility] YOU HAVE RECEIVED A MEDICAL SCREENING EXAM AND THE RESULTS INDICATE THAT YOU DO NOT HAVE A CONDITION THAT REQUIRES URGENT TREATMENT IN THE EMERGENCY DEPARTMENT. FURTHER EVALUATION AND TREATMENT OF YOUR CONDITION CAN WAIT UNTIL YOU ARE SEEN IN YOUR DOCTORS OFFICE WITHIN THE NEXT 1-2 DAYS. IT IS YOUR RESPONSIBILITY TO MAKE AN APPOINTMENT FOR FOLOW-UP CARE. IF YOU HAVE A PRIMARY DOCTOR --you should call your primary doctor and schedule an appointment IF YOU DO NOT HAVE A PRIMARY DOCTOR YOU CAN CALL OUR PHYSICIAN REFERRAL HOTLINE AT IF YOU CAN NOT AFFORD TO SEE A PHYSICIAN YOU CAN CHOSE FROM THE FOLLOWING [facility] [address] [facility]. [facility] [address] [facility] [facility] [address] [facility]. [facility] [address] [facility]. [facility] [address] [facility]. [facility]. [address] [place] [address] Additional Instructions: Call your primary care doctor TOMORROW for an appointment during the next 1-2 days.See the doctor sooner or return here if your condition worsens before your appointment time. NIKKO BURK DO August 09, 2018 05:52
[2018-08-09 06:09] VITALS: BP 152/84; PULSE 78; RESP 18
== END 2018-08-09 06:12 | disposition home or self-care (01) ==
LOC: FTE 04:52
DX: B35.1 Tinea unguium (principal); E11.9 Type 2 diabetes mellitus without complications; Z79.82 Long term (current) use of aspirin; Z79.84 Long term (current) use of oral hypoglycemic drugs; Z87.891 Personal history of nicotine dependence; Z91.040 Latex allergy status
CPT/HCPCS: 99283

== ENCOUNTER 2018-08-14 04:12 | Emergency (ER) | payer OTHER ==
[~2018-08-14] VITALS: Ht 193 cm; Wt 85.5 kg
[~2018-08-14 04:12] MED LIST changes: +[UNRECOGNIZED DRUG - CODE] TP
[2018-08-14 04:15] VITALS: BP 158/97; PULSE 77; RESP 18; Ht 193 cm; Wt 85.5 kg
--- NOTE | 2018-08-14 04:27 | ERD ---
ER Documentation Chief Complaint Chief Complaint C/O SAWYER FEET BLISTERS X3 DAYS HPI This is a 43-year-old male who presents here to the emergency department with complaints of bilateral foot pain, blisters for about 3 days. Stated that he is diabetic. Stated that he is concerned that he might have an infection. Denies headache, head injury, loss of consciousness, dizziness, neck pain, neck stiffness, throat pain, difficulty swallowing, difficulty breathing lying flat, shoulder pain, chest pain, back pain, abdominal pain, nausea, vomiting, constipation, diarrhea, urinary symptoms, loss of bowel and bladder control, trauma, injury, falls, difficulty walking due to pain, numbness or tingling s ensation, calf pain, recent travel, recent major surgery in the last 3 weeks, calf pain, recent long travel, recent exposure to any illness, recent antibiotic use in the last 3 months, fever, chills, seizures. Past medical history: Diabetes. Medication: Metformin. Lisinopril. Surgical history: Social: Denies smoking, use of alcoholic beverages, use of illegal drugs. ROS All systems reviewed and are negative except as per history of present illness. Medications Home Meds Active Scripts Clotrimazole* (Clotrimazole* AF) 1% - 30 Gm Cream.gm., 1 APPLIC TOP BID for 7 Days, TUB Prov:LUCIA GURROLA 08/14/18 Ciclopirox Olamine (CICLODAN) 90 Gm Cream..g., 1 APPLIC TP DAILY for nail jose us, #1 TUB 0 Refills Prov:NIKKO BURK DO 08/09/18 Ibuprofen* (Motrin*) 400 Mg Tab, 400 MG PO Q6H PRN for PAIN AND OR ELEVATED TEMP, #30 TAB Prov:EDWIGE BILL MD 07/20/18 Acetaminophen* (Tylenol*) 325 Mg Tablet, 2 TAB PO Q6 PRN for PAIN AND OR ELEVATED TEMP, #20 TAB Prov:EDWIGE BILL MD 07/20/18 Fluticasone Propionate (Flonase Allergy Relief) 9.9 Ml [place].susp, 1 SPRAY NASAL BID, #1 BOTTLE TO EACH NOSTRIL Prov:PALLAVI HEWITT MD 07/18/18 Metaxalone* (Skelaxin*) 800 Mg Tablet, 800 MG PO TID PRN for MUSCLE SPASMS, #15 TAB Prov:LUCIA GURROLA F 05/09/18 Ibuprofen* (Motrin*) 800 Mg Tab, 800 MG PO Q6H PRN for PAIN AND OR ELEVATED TEMP, #30 TAB Prov:LUCIA GURROLA F 05/09/18 Ibuprofen* (Motrin*) 800 Mg Tab, 800 MG PO Q6, #30 TAB Prov:AYDEN ROGERS PA-C 04/15/18 Naloxone HCl nasal spray (Narcan 4 mg/0.1 mL nasal) 4 Mg [place], 4 MG NS prn overdose, #1 SPRAY 2 Refills Prov:MICHAEL MONTOYA MD 04/13/18 Aspirin* (Aspirin* EC) 325 Mg Tab, 325 MG PO DAILY, #30 TAB 5 Refills Prov:RUSTY HUERTA 03/23/18 Reported Medications Buspirone Hcl* (Buspirone Hcl*) 10 Mg Tab, 15 MG PO TID, TAB 03/21/18 Haloperidol* (Haldol*) 5 Mg Tab, 5 MG PO QHS, TAB 10/26/17 Lisinopril* (Lisinopril*) 40 Mg Tablet, 40 MG PO DAILY, #30 TAB 10/26/17 Atorvastatin* (Atorvastatin*) 40 Mg Tablet, 40 MG PO QHS, #30 TAB 10/26/17 Metformin* (Glucophage*) 1,000 Mg Tablet, 1000 MG PO BID, #60 TAB 10/17/17 Allergies Allergies: Coded Allergies: latex (Unverified Allergy, Unknown, 02/16/18) PMhx/Soc History of Surgery: Yes (left hip) Anesthesia Reaction: No Hx Neurological Disorder: No Hx Respiratory Disorders: No Hx Cardiac Disorders: No Hx Psychiatric Problems: No Hx Miscellaneous Medical Probl: No Hx Alcohol Use: Yes Hx Substance Use: No Hx Tobacco Use: Yes Physical Exam Vitals Vital Signs Date Temp Pulse Resp B/P (MAP) Pulse Ox O2 O2 Flow FiO2 Time Delivery Rate 08/14/18 97.0 77 18 158/97 100 04:15 (117) Physical Exam Const: No acute distress Head: Atraumatic Eyes: Normal Conjunctiva ENT: Normal External Ears, Nose and Mouth. Neck: Full range of motion. No meningismus. Resp: Clear to auscultation bilaterally Cardio: Regular rate and rhythm, no murmurs Abd: Soft, non tender, non distended. Normal bowel sounds Skin: No petechiae or rashes Back: No midline or flank tenderness Ext: No cyanosis, or edema. Symmetrical knees. No calf tenderness bilaterally. Able to bear weight on left lower extremity. Able to bear weight on right lower extremity. Bilateral foot: Has mild excoriations and blisters. No dark-colored lesions. No numbness or tingling sensation. Capillary refills to bilateral lower extremities are less than 2 seconds. No neurovascular defic it. Ambulatory with steady gait. Neur: Awake and alert. Sensation is intact. No neurological deficit. Psych: Normal Mood and Affect Procedures/MDM Diagnostic tests: X-ray of bilateral foot: No definite acute fracture or dislocation. Degenerative change. Treatment: Refuses. Re-evaluation: No calf tenderness. Capillary refills to bilateral lower extremities are less than 2 seconds. No neurovascular deficit. Ambulatory with steady gait. Stated he is comfortable going home. Differential diagnosis I have low suspicion for DVT, osteomyelitis, necrotizing fasciitis, sepsis, deep space infection, onychomycosis, paronychia, felon. Final diagnosis: Blisters to bilateral foot. Athletes foot. Tinea pedis. Prescription: Chlortrimazole. Follow-up with PCP in the next 24-48 hours. Follow-up with scrap drop engineer in the next 24 to 48 hours. Come back here in the emergency department for any new symptoms or any worsening symptoms. All questions and concerns were answered. Patient and family members verbalized understanding and agreed with plan of care. Hemodynamically stable on discharge. Departure Diagnosis: Primary Impression: Foot pain Additional Impressions: Tinea pedis Athlete's foot Condition: Stable Additional Instructions: Follow-up with PCP in the next 24-48 hours. Follow-up with scrap drop engineer in the next 24 to 48 hours. Come back here in the emergency department for any new symptoms or any worsening symptoms. LUCIA GURROLA August 14, 2018 04:27
[2018-08-14] MEDS ORDERED: CLOT30CR24 TOP (04:35)
== END 2018-08-14 06:25 | disposition home or self-care (01) ==
LOC: FTE 04:12
DX: B35.3 Tinea pedis (principal); E11.9 Type 2 diabetes mellitus without complications; Z79.82 Long term (current) use of aspirin; Z79.84 Long term (current) use of oral hypoglycemic drugs; Z87.891 Personal history of nicotine dependence
CPT/HCPCS: 73630; Z7502

== ENCOUNTER 2018-08-16 02:55 | Emergency (ER) | payer SELFPAY ==
[~2018-08-16 02:55] MED LIST changes: +CLOT30CR24 TOP
== END 2018-08-16 03:00 | disposition left against medical advice (07) ==
LOC: E/R 02:55
DX: Z53.21 Procedure and treatment not carried out due to patient leaving prior to being seen by health care provider (principal)

== ENCOUNTER 2018-08-19 15:41 | Emergency (ER) | payer SELFPAY ==
[~2018-08-19] VITALS: Ht 193 cm; Wt 84.0 kg
[2018-08-19 15:47] VITALS: BP 158/77; PULSE 96; RESP 18; Ht 193 cm; Wt 84.0 kg
== END 2018-08-19 17:00 | disposition left against medical advice (07) ==
LOC: FTE 15:41
DX: Z53.21 Procedure and treatment not carried out due to patient leaving prior to being seen by health care provider (principal)

== ENCOUNTER 2018-08-20 14:12 | Emergency (ER) | payer SELFPAY ==
[~2018-08-20] VITALS: Ht 182.9 cm; Wt 65.9 kg
[2018-08-20 14:21] VITALS: BP 131/80; PULSE 82; RESP 18; Ht 182.9 cm; Wt 65.9 kg
== END 2018-08-20 21:03 | disposition left against medical advice (07) ==
LOC: E/R 14:12
DX: Z53.21 Procedure and treatment not carried out due to patient leaving prior to being seen by health care provider (principal)

== ENCOUNTER 2018-08-22 10:27 | Emergency (ER) | payer SELFPAY ==
[~2018-08-22] VITALS: Wt 79.0 kg
[2018-08-22 10:30] VITALS: BP 144/89; PULSE 89; RESP 18
== END 2018-08-22 10:52 | disposition left against medical advice (07) ==
LOC: E/R 10:27
DX: Z53.21 Procedure and treatment not carried out due to patient leaving prior to being seen by health care provider (principal)

== ENCOUNTER 2018-08-24 01:55 | Emergency (ER) | payer SELFPAY ==
[~2018-08-24] VITALS: Ht 193 cm; Wt 85.2 kg
[2018-08-24 01:59] VITALS: BP 172/98; PULSE 56; RESP 18; Ht 193 cm; Wt 85.2 kg
--- NOTE | 2018-08-24 02:30 | ERD ---
ER Documentation Chief Complaint Chief Complaint BILAT FOOT PAIN X'S 3 DAYS HPI Is a 43 male wellness visit comes in with planes of bilateral foot pain for 3 days. Denies any trauma. He says is been walking too much. Denies any other current complaints. ROS All systems reviewed and are negative except as per history of present illness. Medications Home Meds Active Scripts Clotrimazole* (Clotrimazole* AF) 1% - 30 Gm Cream.gm., 1 APPLIC TOP BID for 7 Days, TUB Prov:LUCIA GURROLA F 08/14/18 Ciclopirox Olamine (CICLODAN) 90 Gm Cream..g., 1 APPLIC TP DAILY for nail fungus, #1 TUB 0 Refills Prov:NIKKO BURK DO 08/09/18 Ibuprofen* (Motrin*) 400 Mg Tab, 400 MG PO Q6H PRN for PAIN AND OR ELEVATED TEMP, #30 TAB Prov:EDWIGE BILL MD 07/20/18 Acetaminophen* (Tylenol*) 325 Mg Tablet, 2 TAB PO Q6 PRN for PAIN AND OR [place]LEVA [place]ZA TEMP, #20 TAB Prov:EDWIGE BILL MD 07/20/18 Fluticasone Propionate (Flonase Allergy Relief) 9.9 Ml [place].susp, 1 SPRAY NASAL BID, #1 BOTTLE TO EACH NOSTRIL Prov:PALLAVI HEWITT MD 07/18/18 Metaxalone* (Skelaxin*) 800 Mg Tablet, 800 MG PO TID PRN for MUSCLE SPASMS, #15 TAB Prov:LUCIA GURROLA 05/09/18 Ibuprofen* (Motrin*) 800 Mg Tab, 800 MG PO Q6H PRN for PAIN AND OR ELEVATED TEMP, #30 TAB Prov:LUCIA GURROLA F 05/09/18 Ibuprofen* (Motrin*) 800 Mg Tab, 800 MG PO Q6, #30 TAB Prov:AYDEN ROGERS PA-C 04/15/18 Naloxone HCl nasal spray (Narcan 4 mg/0.1 mL nasal) 4 Mg [place], 4 MG NS prn overdose, #1 SPRAY 2 Refills Prov:MICHAEL MONTOYA MD 04/13/18 Aspirin* (Aspirin* EC) 325 Mg Tab, 325 MG PO DAILY, #30 TAB 5 Refills Prov:RUSTY HUERTA 03/23/18 Reported Medications Buspirone Hcl* (Buspirone Hcl*) 10 Mg Tab, 15 MG PO TID, TAB 03/21/18 Haloperidol* (Haldol*) 5 Mg Tab, 5 MG PO QHS, TAB 10/26/17 Lisinopril* (Lisinopril*) 40 Mg Tablet, 40 MG PO DAILY, #30 TAB 10/26/17 Atorvastatin* (Atorvastatin*) 40 Mg Tablet, 40 MG PO QHS, #30 TAB 10/26/17 Metformin* (Glucophage*) 1,000 Mg Tablet, 1000 MG PO BID, #60 TAB 10/17/17 Allergies Allergies: Coded Allergies: latex (Unverified Allergy, Unknown, 02/16/18) PMhx/Soc History of Surgery: Yes (left hip) Anesthesia Reaction: No Hx Neurological Disorder: No Hx Respiratory Disorders: No Hx Cardiac Disorders: No Hx Psychiatric Problems: No Hx Miscellaneous Medical Probl: No Hx Alcohol Use: Yes Hx Substance Use: No Hx Tobacco Use: Yes Physical Exam Vitals Vital Signs Date Temp Pulse Resp B/P (MAP) Pulse Ox O2 O2 Flow FiO2 Time Delivery Rate 08/24/18 97.6 56 18 172/98 94 01:59 (122) Physical Exam Const: No acute distress Head: Atraumatic Eyes: Normal Conjunctiva ENT: Normal External Ears, Nose and Mouth. Neck: Full range of motion. No meningismus. Resp: Clear to auscultation bilaterally Cardio: Regular rate and rhythm, no murmurs Abd: Soft, non tender, non distended. Normal bowel sounds Skin: No petechiae or rashes Back: No midline or flank tenderness Ext: No cyanosis, or edema Neur: Awake and alert Psych: Normal Mood and Affect Procedures/MDM Medical decision m[age]-year-old male here with foot pain. There is a soft tissue injury. Is been clinically stable for outpatient management. Advise follow with primary care for this. Departure Diagnosis: Primary Impression: Foot pain Laterality: bilateral Qualified Codes: M79.671 - Pain in right foot; M79.672 - Pain in left foot Condition: Stable Patient Instructions: Myalgias JONNIE GEE Aug 24, 2018 02:29
== END 2018-08-24 04:15 | disposition left against medical advice (07) ==
LOC: E/R 01:55
DX: Z53.21 Procedure and treatment not carried out due to patient leaving prior to being seen by health care provider (principal)

== ENCOUNTER 2018-08-26 01:50 | Emergency (ER) | payer OTHER ==
[~2018-08-26] VITALS: Ht 182.9 cm; Wt 85.8 kg
[2018-08-26 01:57] VITALS: Ht 182.9 cm; Wt 85.8 kg
== END 2018-08-26 03:16 | disposition left against medical advice (07) ==
LOC: FTE 01:50
DX: Z53.21 Procedure and treatment not carried out due to patient leaving prior to being seen by health care provider (principal)

== ENCOUNTER 2018-09-08 20:03 | Emergency (ER) | payer SELFPAY ==
[~2018-09-08] VITALS: Ht 185.4 cm; Wt 75.0 kg
[2018-09-08 20:12] VITALS: BP 154/74; PULSE 92; RESP 23; Ht 185.4 cm; Wt 75.0 kg
== END 2018-09-08 21:30 | disposition left against medical advice (07) ==
LOC: E/R 20:03
DX: Z53.21 Procedure and treatment not carried out due to patient leaving prior to being seen by health care provider (principal)

== ENCOUNTER 2018-09-10 03:53 | Emergency (ER) | payer SELFPAY ==
[~2018-09-10] VITALS: Ht 182.9 cm; Wt 86.7 kg
[2018-09-10 03:58] VITALS: BP 158/89; PULSE 72; RESP 18; Ht 182.9 cm; Wt 86.7 kg
== END 2018-09-10 05:08 | disposition left against medical advice (07) ==
LOC: FTE 03:53
DX: Z53.21 Procedure and treatment not carried out due to patient leaving prior to being seen by health care provider (principal)

== ENCOUNTER 2018-09-12 14:31 | Emergency (ER) | payer SELFPAY ==
[~2018-09-12] VITALS: Ht 188 cm; Wt 84.0 kg
[2018-09-12 14:37] VITALS: BP 146/70; PULSE 76; RESP 18; Ht 188 cm; Wt 84.0 kg
[2018-09-12] MEDS ORDERED: CEPH-443 PO (23:45)
[2018-09-12] MEDS ORDERED: CLOT30CR24 TOP (23:45)
== END 2018-09-12 16:00 | disposition left against medical advice (07) ==
LOC: FTE 14:31
DX: Z53.21 Procedure and treatment not carried out due to patient leaving prior to being seen by health care provider (principal)

== ENCOUNTER 2018-09-12 23:01 | Emergency (ER) | payer OTHER ==
[~2018-09-12] VITALS: Ht 182.9 cm; Wt 85.4 kg
[2018-09-12 23:10] VITALS: BP 141/73; PULSE 60; RESP 16; Ht 182.9 cm; Wt 85.4 kg
[2018-09-12] MEDS ORDERED: CLOT30CR24 TOP (23:45)
[2018-09-12] MEDS ORDERED: CEPH-443 PO (23:45)
--- NOTE | 2018-09-12 23:54 | ERD ---
ER Documentation Chief Complaint Chief Complaint FOOT PAIN X 3 WEEKS HPI 43-year-old male presenting with bilateral foot pain. She states is been going on for about 3 weeks. He has not been applying any medication to the area and he has not noted any recent injuries or falls. Denies any numbness or tingling. Patient is diabetic. Allergy to latex. Surgical history denies. Social history smokes weed. ROS All systems reviewed and are negative except as per history of present illness. Medications Home Meds Active Scripts Clotrimazole* (Clotrimazole* AF) 1% - 30 Gm Cream.gm., 1 APPLIC TOP BID for 7 Days, TUB Prov:AUSTIN MILLER PA-C 09/12/18 Cephalexin* (Keflex*) 500 Mg Capsule, 500 MG PO QID for 7 Days, CAP Prov:AUSTIN MILLER PA-C 09/12/18 Clotrimazole* (Clotrimazole* AF) 1% - 30 Gm Cream.gm., 1 APPLIC TOP BID for 7 Days, TUB Prov:LUCIA GURROLA 08/14/18 Ciclopirox Olamine (CICLODAN) 90 Gm Cream..g., 1 APPLIC TP DAILY for nail jose us, #1 TUB 0 Refills Prov:NIKKO BURK DO 08/09/18 Ibuprofen* (Motrin*) 400 Mg Tab, 400 MG PO Q6H PRN for PAIN AND OR ELEVATED TEMP, #30 TAB Prov:EDWIGE BILL MD 07/20/18 Acetaminophen* (Tylenol*) 325 Mg Tablet, 2 TAB PO Q6 PRN for PAIN AND OR ELEVATED TEMP, #20 TAB Prov:EDWIGE BILL MD 07/20/18 Fluticasone Propionate (Flonase Allergy Relief) 9.9 Ml [place].susp, 1 SPRAY NASAL BID, #1 BOTTLE TO EACH NOSTRIL Prov:PALLAVI HEWITT MD 07/18/18 Metaxalone* (Skelaxin*) 800 Mg Tablet, 800 MG PO TID PRN for MUSCLE SPASMS, #15 TAB Prov:LUCIA GURROLA 05/09/18 Ibuprofen* (Motrin*) 800 Mg Tab, 800 MG PO Q6H PRN for PAIN AND OR ELEVATED TEMP, #30 TAB Prov:LUCIA GURROLA 05/09/18 Ibuprofen* (Motrin*) 800 Mg Tab, 800 MG PO Q6, #30 TAB Prov:AYDEN ROGERS PA-C 04/15/18 Naloxone HCl nasal spray (Narcan 4 mg/0.1 mL nasal) 4 Mg [place], 4 MG NS prn overdose, #1 SPRAY 2 Refills Prov:MICHAEL MONTOYA MD 04/13/18 Aspirin* (Aspirin* EC) 325 Mg Tab, 325 MG PO DAILY, #30 TAB 5 Refills Prov:RUSTY HUERTA 03/23/18 Reported Medications Buspirone Hcl* (Buspirone Hcl*) 10 Mg Tab, 15 MG PO TID, TAB 03/21/18 Haloperidol* (Haldol*) 5 Mg Tab, 5 MG PO QHS, TAB 10/26/17 Lisinopril* (Lisinopril*) 40 Mg Tablet, 40 MG PO DAILY, #30 TAB 10/26/17 Atorvastatin* (Atorvastatin*) 40 Mg Tablet, 40 MG PO QHS, #30 TAB 10/26/17 Metformin* (Glucophage*) 1,000 Mg Tablet, 1000 MG PO BID, #60 TAB 10/17/17 Allergies Allergies: Coded Allergies: latex (Unverified Allergy, Unknown, 02/16/18) PMhx/Soc History of Surgery: Yes (left hip) Anesthesia Reaction: No Hx Neurological Disorder: No Hx Respiratory Disorders: No Hx Cardiac Disorders: No Hx Psychiatric Problems: No Hx Miscellaneous Medical Probl: No Hx Alcohol Use: Yes Hx Substance Use: No Hx Tobacco Use: Yes FmHx Family History: No diabetes, No coronary disease, No other Physical Exam Vitals Vital Signs Date Temp Pulse Resp B/P (MAP) Pulse Ox O2 O2 Flow FiO2 Time Delivery Rate 09/12/18 97.8 60 16 141/73 99 23:10 (95) Physical Exam GENERAL: The patient is well-appearing, well-nourished, in no acute distress CHEST: Clear to auscultation bilaterally. There are no rales, wheezes or rhonchi. HEART: Regular rate and rhythm. No murmurs, clicks, rubs or gallops. EXTREMITIES: Equal pulses bilaterally. There is no peripheral clubbing, cyanosis or edema. No focal swelling or erythema. Full range of motion. Grossly neurovascularly intact. NEUROLOGIC: Alert and oriented. Cranial nerves II through XII intact. Motor strength in all 4 extremities with 5 out of 5 strength. Sensation grossly intact. Normal speech and gait. SKIN: Poor hygiene noted to bilateral feet. Ulcerative wound noted to the right fifth toe. No purulence or bleeding. Procedures/MDM MDM: 43-year-old male presenting with ulcerative diabetic wound to the right fifth toe. I have low suspicion for osteomyelitis. Patient's wound appears to be superficial. I do not feel blood work or imaging is indicated. I have low suspicion for other bacterial infection however patient does have some findings concerning for possible tinea and I will treat with cream. Patient is told symptoms change or worsen to return immediately to the ER. All questions answered at discharge Departure Diagnosis: Primary Impression: Foot pain Additional Impression: Foot ulcer due to secondary DM Condition: Stable Patient Instructions: Diabetic Foot Care Referrals: [facility] Additional Instructions: FOLLOW UP WITH YOUR PRIMARY CARE PHYSICIAN TOMORROW.Return to this facility if you are not improving as expected. AUSTIN MILLER PA-C Sep 12, 2018 23:54
== END 2018-09-13 00:33 | disposition home or self-care (01) ==
LOC: FTE 23:01
DX: E11.621 Type 2 diabetes mellitus with foot ulcer (principal); L97.519 Non-pressure chronic ulcer of other part of right foot with unspecified severity; Z79.82 Long term (current) use of aspirin; Z79.84 Long term (current) use of oral hypoglycemic drugs; Z87.891 Personal history of nicotine dependence; Z91.040 Latex allergy status
CPT/HCPCS: 99283

== ENCOUNTER 2018-09-15 14:28 | Emergency (ER) | payer SELFPAY ==
[~2018-09-15] VITALS: Ht 188 cm; Wt 84.6 kg
[~2018-09-15 14:28] MED LIST changes: +CEPH-443 PO
[2018-09-15 14:31] VITALS: BP 156/83; PULSE 91; RESP 18; Ht 188 cm; Wt 84.6 kg
== END 2018-09-15 18:26 | disposition left against medical advice (07) ==
LOC: FTE 14:28
DX: Z53.21 Procedure and treatment not carried out due to patient leaving prior to being seen by health care provider (principal)

== ENCOUNTER 2018-09-16 01:13 | Emergency (ER) | payer SELFPAY ==
[~2018-09-16] VITALS: Ht 193 cm; Wt 84.5 kg
[2018-09-16 01:14] VITALS: BP 181/117; PULSE 105; RESP 18; Ht 193 cm; Wt 84.5 kg
== END 2018-09-16 01:51 | disposition left against medical advice (07) ==
LOC: E/R 01:13
DX: Z53.21 Procedure and treatment not carried out due to patient leaving prior to being seen by health care provider (principal)

== ENCOUNTER 2018-09-16 22:38 | Emergency (ER) | payer SELFPAY ==
[~2018-09-16] VITALS: Ht 193 cm; Wt 82.1 kg
[2018-09-16 22:46] VITALS: BP 158/81; PULSE 105; RESP 20; Ht 193 cm; Wt 82.1 kg
== END 2018-09-16 22:58 | disposition left against medical advice (07) ==
LOC: FTE 22:38
DX: Z53.21 Procedure and treatment not carried out due to patient leaving prior to being seen by health care provider (principal)

== ENCOUNTER 2018-09-19 05:17 | Emergency (ER) | payer SELFPAY ==
[~2018-09-19] VITALS: Ht 188 cm; Wt 87.8 kg
[2018-09-19 05:19] VITALS: Ht 188 cm; Wt 87.8 kg
== END 2018-09-19 07:44 | disposition left against medical advice (07) ==
LOC: FTE 05:17
DX: Z53.21 Procedure and treatment not carried out due to patient leaving prior to being seen by health care provider (principal)

== ENCOUNTER 2018-09-19 21:45 | Emergency (ER) | payer SELFPAY ==
[~2018-09-19] VITALS: Ht 193 cm; Wt 86.5 kg
[2018-09-19 21:46] VITALS: BP 147/73; PULSE 70; RESP 18; Ht 193 cm; Wt 86.5 kg
== END 2018-09-19 22:47 | disposition left against medical advice (07) ==
LOC: E/R 21:45
DX: Z53.21 Procedure and treatment not carried out due to patient leaving prior to being seen by health care provider (principal)

== ENCOUNTER 2018-09-21 19:07 | Emergency (ER) | payer OTHER ==
[~2018-09-21] VITALS: Ht 188 cm; Wt 89.7 kg
[2018-09-21 19:13] VITALS: Ht 188 cm; Wt 89.7 kg
[2018-09-21] MEDS ORDERED: SODIUM CHLORIDE 0.9% 1L BAG IV* STA (19:18)
[2018-09-21] MEDS ORDERED: ACETAMINOPHEN 325 MG TAB PO ONE (19:30)
--- NOTE | 2018-09-21 19:49 | ERD ---
ER Documentation Chief Complaint Chief Complaint BIB FAMILY W/ C/O FEELING TIRES, NOT FEELING GOOD, HAD BEEN MISSING X2 DAYS HPI The patient is a 43-year-old male, presenting to the ER because he is not feeling well, complains of generalized weakness today. According to the family, he has been missing for the last 2 days. He denies headache, blurred vision, cough, neck pain, chest pain, dyspnea, abdominal pain, vomiting, dysuria, diarrhea. He does smoke a pack a day, denies drinking, denies illicit drug Past medical history: Diabetes mellitus, hypertension, psychiatric illness Past surgical history: Right hip ROS All systems reviewed and are negative except as per history of present illness. Medications Home Meds Active Scripts Clotrimazole* (Clotrimazole* AF) 1% - 30 Gm Cream.gm., 1 APPLIC TOP BID for 7 Days, TUB Prov:AUSTIN MILLER PA-C 09/12/18 Cephalexin* (Keflex*) 500 Mg Capsule, 500 MG PO QID for 7 Days, CAP Prov:AUSTIN MILLER PA-C 09/12/18 Clotrimazole* (Clotrimazole* AF) 1% - 30 Gm Cream.gm., 1 APPLIC TOP BID for 7 Days, TUB Prov:LUCIA GURROLA 08/14/18 Ciclopirox Olamine (CICLODAN) 90 Gm Cream..g., 1 APPLIC TP DAILY for nail fungus, #1 TUB 0 Refills Prov:NIKKO BURK DO 08/09/18 Ibuprofen* (Motrin*) 400 Mg Tab, 400 MG PO Q6H PRN for PAIN AND OR ELEVATED TEMP, #30 TAB Prov:EDWIGE BILL MD 07/20/18 Acetaminophen* (Tylenol*) 325 Mg Tablet, 2 TAB PO Q6 PRN for PAIN AND OR ELEVATED TEMP, #20 TAB Prov:EDWIGE BILL MD 07/20/18 Fluticasone Propionate (Flonase Allergy Relief) 9.9 Ml [place].susp, 1 SPRAY NASAL BID, #1 BOTTLE TO EACH NOSTRIL Prov:PALLAVI HEWITT MD 07/18/18 Metaxalone* (Skelaxin*) 800 Mg Tablet, 800 MG PO TID PRN for MUSCLE SPASMS, #15 TAB Prov:LUCIA GURROLA F 05/09/18 Ibuprofen* (Motrin*) 800 Mg Tab, 800 MG PO Q6H PRN for PAIN AND OR ELEVATED TEMP, #30 TAB Prov:LUCIA GURROLA F 05/09/18 Ibuprofen* (Motrin*) 800 Mg Tab, 800 MG PO Q6, #30 TAB Prov:AYDEN ROGERS PA-C 04/15/18 Naloxone HCl nasal spray (Narcan 4 mg/0.1 mL nasal) 4 Mg [place], 4 MG NS prn overdose, #1 SPRAY 2 Refills Prov:MICHAEL MONTOYA MD 04/13/18 Aspirin* (Aspirin* EC) 325 Mg Tab, 325 MG PO DAILY, #30 TAB 5 Refills Prov:RUSTY HUERTA 03/23/18 Reported Medications Buspirone Hcl* (Buspirone Hcl*) 10 Mg Tab, 15 MG PO TID, TAB 03/21/18 Haloperidol* (Haldol*) 5 Mg Tab, 5 MG PO QHS, TAB 10/26/17 Lisinopril* (Lisinopril*) 40 Mg Tablet, 40 MG PO DAILY, #30 TAB 10/26/17 Atorvastatin* (Atorvastatin*) 40 Mg Tablet, 40 MG PO QHS, #30 TAB 10/26/17 Metformin* (Glucophage*) 1,000 Mg Tablet, 1000 MG PO BID, #60 TAB 10/17/17 Allergies Allergies: Coded Allergies: latex (Unverified Allergy, Unknown, 02/16/18) PMhx/Soc History of Surgery: Yes (left hip, jaw) Anesthesia Reaction: No Hx Neurological Disorder: No Hx Respiratory Disorders: No Hx Cardiac Disorders: Yes (HTN) Hx Psychiatric Problems: Yes (Anxiety) Hx Miscellaneous Medical Probl: No Hx Alcohol Use: Yes (Occasional) Hx Substance Use: No Hx Tobacco Use: Yes Smoking Status: Current every day smoker Physical Exam Vitals Vital Signs Date Temp Pulse Resp B/P (MAP) Pulse Ox O2 O2 Flow FiO2 Time Delivery Rate 09/21/18 102.6 19:31 09/21/18 102.6 107 27 139/93 100 Room Air 19:17 (108) 09/21/18 102.0 123 25 152/84 98 19:13 (106) Physical Exam Const: No acute distress. Head: Atraumatic. Eyes: Normal Conjunctiva. ENT: Normal External Ears, Nose and Mouth. Bilateral tympanic membranes and oropharynx are within normal limit Neck: Full range of motion. No meningismus. Resp: Clear to auscultation bilaterally. Cardio: Regular tachycardic. Abd: Soft, non distended, normal bowel sounds, non tender. Skin: No petechiae or rashes. Back: No midline or flank tenderness. Ext: No cyanosis, or edema. Neur: Awake and alert. No focal deficit Psych: Normal Mood and Affect. Result Diagram: 09/21/18192509/21/181925 Results 24 hrs Laboratory Tests Test 09/21/18 19:13 09/21/18 19:23 09/21/18 19:26 Bedside Glucose 193 mg/dL POC Venous Lactate 1.8 mmol/L White Blood Count 19.4 10^3/ul Red Blood Count 4.77 10^6/ul Hemoglobin 12.8 g/dl Hematocrit 38.6 % Mean Corpuscular Volume 80.9 fl Mean Corpuscular Hemoglobin 26.8 pg Mean Corpuscular Hemoglobin Concent 33.2 g/dl Red Cell Distribution Width 14.1 % Platelet Count 206 10^3/UL Mean Platelet Volume 9.9 fl Immature Granulocytes % 0.500 % Neutrophils % 90.7 % Lymphocytes % 2.0 % Monocytes % 6.5 % Eosinophils % 0.0 % Basophils % 0.3 % Nucleated Red Blood Cells % 0.0 /100WBC Immature Granulocytes # 0.090 10^3/ul Neutrophils # 17.6 10^3/ul Lymphocytes # 0.4 10^3/ul Monocytes # 1.3 10^3/ul Eosinophils # 0.0 10^3/ul Basophils # 0.1 10^3/ul Nucleated Red Blood Cells # 0.0 10^3/ul Prothrombin Time 13.5 Sec Prothrombin Time Ratio 1.1 INR International Normalized Ratio 1.02 Activated Partial Thromboplast Time 25.8 Sec Sodium Level 132 mmol/L Potassium Level 4.0 mmol/L Chloride Level 93 mmol/L Carbon Dioxide Level 27 mmol/L Anion Gap 12 Blood Urea Nitrogen 9 mg/dl Creatinine 0.65 mg/dl Est Glomerular Filtrat Rate mL/min > 60 mL/min Glucose Level 189 mg/dl Calcium Level 9.1 mg/dl Total Bilirubin 0.9 mg/dl Direct Bilirubin 0.00 mg/dl Indirect Bilirubin 0.9 mg/dl Aspartate Amino Transf (AST/SGOT) 34 IU/L Alanine Aminotransferase (ALT/SGPT) 48 IU/L Alkaline Phosphatase 145 IU/L Troponin I Pending Total Protein 8.2 g/dl Albumin 4.3 g/dl Globulin 3.90 g/dl Albumin/Globulin Ratio 1.10 Current Medications Medications Dose Sig/[place] Start Time Status Last (Trade) Ordered Route PRN Stop Time Admin Dose Reason Admin Sodium 2,690 ml BOLUS OVER 2 09/21/18 DC 09/21/18 Chloride HOURS STAT 19:18 09/21/18 19:29 (NS) IV* 19:19 650 mg ONCE ONCE 09/21/18 DC 09/21/18 Acetaminophen PO 19:30 09/21/18 19:31 (Tylenol 19:31 Tab) Vancomycin 250 ml @ ONCE ONCE 09/21/18 HCl 125 mls/hr IVPB 20:00 09/21/18 21:59 Piperacillin 100 ml @ ONCE ONCE 09/21/18 09/21/18 Sod/ 200 mls/hr IVPB 20:00 09/21/18 19:52 Tazobactam 20:29 Sod Procedures/MDM EKG: Read by emergency physician Rate/Rhythm: Sinus tachycardia 110 beats/min QRS, ST, T-waves: No ST elevation, no T inversion Impression: Abnormal EKG Portable chest x-ray radiologist reading/UA/ETOH/TROP/UDS PENDING MEDICAL MAKING DECISION: The patient is a 43-year-old male, presenting with acute SIRS He was treated with normal saline 30 mm/kg IV, vancomycin IV, Zosyn IV empirically, Tylenol 650 mg p.o. for fever with good response. The differential diagnoses considered include but are not limited to pneumonia, UTI, pyelonephritis, endocarditis, substance abuse Departure Diagnosis: Primary Impression: SIRS (systemic inflammatory response syndrome) Additional Impression: Anemia Condition: Stable Comments I discussed the findings with the patient. I discussed the patient with lyla Laurent at 8 PM , who was made aware of the lab, the treatment, the patient condition. pending labs. The patient is admitted to Tel Disclaimer: Inadvertent spelling and grammatical errors are likely due to EHR/dictation software use and do not reflect on the overall quality of patient care. Also, please note that the electronic time recorded on this note does not necessarily reflect the actual time of the patient encounter. NIKKO MARLEY MD Sep 21, 2018 19:49
[2018-09-21] MEDS ORDERED: IBUPROFEN 600 MG TAB PO ONE (20:00)
[2018-09-21] MEDS ORDERED: VANCOMYCIN 1 GM (PMX) 250 ML IVPB ONE (20:00)
[2018-09-21] MEDS ORDERED: PIPER-TAZO 3.375 GM IV (PMX) 100 ML IVPB ONE (20:00)
[2018-09-21] MEDS ORDERED: ONDANSETRON 4 MG INJ IV PRN (21:30)
[2018-09-21] MEDS ORDERED: ACETAMINOPHEN 325 MG TAB PO PRN (21:30)
[2018-09-21] MEDS ORDERED: IBUP-1544 PO (22:38)
[2018-09-21] MEDS ORDERED: ASPI-831 PO (22:38)
[2018-09-22] MEDS ORDERED: SOD CHLORIDE 0.9% 1,000 ML IV SCH (00:49)
[2018-09-22] MEDS ORDERED: ONDANSETRON 4 MG INJ IV PRN (01:00)
[2018-09-22] MEDS ORDERED: ACETAMINOPHEN 325 MG TAB PO PRN (01:00)
[2018-09-22] MEDS ORDERED: ALBUTEROL/IPRATROPIUM (NEB) 3 ML AMP HHN PRN (01:00)
[2018-09-22] MEDS ORDERED: NACL 0.9% 3 ML SYG IV SCH (01:00)
[2018-09-22] MEDS ORDERED: DEXTROSE 50% 50 ML SYRINGE IV PRN ×2 (01:30)
[2018-09-22] MEDS ORDERED: GLUCOSE GEL 15 GRAM TUBE BUCCAL PRN (01:30)
[2018-09-22] MEDS ORDERED: GLUCOSE GEL 15 GRAM TUBE PO PRN ×2 (01:30)
[2018-09-22] MEDS ORDERED: VANCOMYCIN 750 MG (PMX) 250 ML IVPB ONE (01:30)
[2018-09-22] MEDS ORDERED: GLUCAGON 1 MG INJ IM PRN (01:30)
--- NOTE | 2018-09-22 05:58 | HP ---
Date/Time of Note Date/Time of Note DATE: 09/21/18 TIME: 22:30 Assessment/Plan Lines/Catheters IV Catheter Type (from Nrs): Saline Lock Assessment/Plan Assessment/Plan 1. SIRS -Patient presented with high fever, leukocytosis and tachycardia. Chest x-ray and UA nondiagnostic -Follow-up urine culture and blood culture results -Empiric antibiotic 2. Hypertension: Continue home meds. Adjust as needed 3. Type 2 diabetes: Continue metformin 4. Dyslipidemia: Continue statin 5. Anxiety: Continue home med 6. Mild hyponatremia: Likely from dehydration. NS IVF for now Result Diagram: 09/21/18192509/21/18 192 Results 24hrs Laboratory Tests Test 09/21/18 19:13 09/21/18 19:23 09/21/18 19:26 09/21/18 20:03 Bedside Glucose 193 POC Venous Lactate 1.8 White Blood Count 19.4 #H Red Blood Count 4.77 Hemoglobin 12.8 L Hematocrit 38.6 L Mean Corpuscular Volume 80.9 L Mean Corpuscular 26.8 L Hemoglobin Mean Corpuscular 33.2 Hemoglobin Concent Red Cell Distribution 14.1 Width Platelet Count 206 Mean Platelet Volume 9.9 Immature Granulocytes % 0.500 H Neutrophils % 90.7 H Lymphocytes % 2.0 L Monocytes % 6.5 Eosinophils % 0.0 Basophils % 0.3 Nucleated Red Blood 0.0 Cells % Immature Granulocytes # 0.090 H Neutrophils # 17.6 H Lymphocytes # 0.4 L Monocytes # 1.3 H Eosinophils # 0.0 Basophils # 0.1 Nucleated Red Blood 0.0 Cells # Prothrombin Time 13.5 Prothrombin Time Ratio 1.1 INR International 1.02 Normalized Ratio Activated 25.8 Partial Thromboplast Time Sodium Level 132 L Potassium Level 4.0 Chloride Level 93 L Carbon Dioxide Level 27 Anion Gap 12 Blood Urea Nitrogen 9 Creatinine 0.65 Est Glomerular Filtrat > 60 Rate mL/min Glucose Level 189 Calcium Level 9.1 Total Bilirubin 0.9 Direct Bilirubin 0.00 Indirect Bilirubin 0.9 Aspartate Amino 34 Transf (AST/SGOT) Alanine 48 Aminotransferase (ALT/SG PT) Alkaline Phosphatase 145 H Troponin I 0.013 Total Protein 8.2 H Albumin 4.3 Globulin 3.90 H Albumin/Globulin Ratio 1.10 Ethyl Alcohol Level < 10.0 H Urine Color YELLOW Urine Clarity CLEAR Urine pH 7.0 Urine Specific [place] 1.010 Urine Ketones NEGATIVE Urine Nitrite NEGATIVE Urine Bilirubin NEGATIVE Urine Urobilinogen NEGATIVE Urine Leukocyte Esterase NEGATIVE Urine Hemoglobin NEGATIVE Urine Glucose NEGATIVE Urine Total Protein NEGATIVE Urine Opiates Screen Negative Urine Barbiturates Negative Urine Amphetamines POSITIVE Screen Urine Benzodiazepines Negative Screen Urine Cocaine Screen Negative Urine Cannabinoids Positive Test 09/21/18 20:09 09/21/18 21:23 09/21/18 22:35 09/21/18 23:29 Bedside Urine pH (LAB) 7.0 Bedside Urine Protein Negative (LAB) Bedside Urine Glucose Negative (UA) Bedside Urine Ketones Negative (LAB) Bedside Urine Blood Negative Bedside Urine Nitrite Negative (LAB) Bedside Urine Negative Leukocyte Esterase (L Lactic Acid Level 1.9 1.4 Bedside Glucose 192 Test 09/22/18 05:23 White Blood Count Pending Red Blood Count Pending Hemoglobin Pending Hematocrit Pending Mean Corpuscular Volume Pending Mean Corpuscular Pending Hemoglobin Mean Corpuscular Pending Hemoglobin Concent Red Cell Distribution Pending Width Platelet Count Pending Mean Platelet Volume Pending HPI/ROS Admit Date/Time Admit Date/Time Hx of Present Illness Patient is a 43-year-old male with a history of hypertension, type 2 diabetes, dyslipidemia, anxiety who was brought to the ER for fever and generalized weak ness. According to family, patient has been missing for 2days. They noted that he has been more sleepy. Patient complains of generalized feeling of unwell and weakness. Patient was found to be warm to touch at home. Denies cough, shortness of breath, chest pain, nausea/vomiting or diarrhea. When presented to the ER, he was found to be febrile with temperature as high as 102.6, heart rate in the 120s, WBC 19,000. Chest x-ray shows scattered atelectasis and elevated right hemidiaphragm otherwise no other findings. UA negative. PMH/Family/Social Past Medical History Medications Current Medications Ondansetron HCl (Zofran Inj) 4 mg ER BRID[place] PRN IV NAUSEA/VOMITING; Start 09/21/18 at 21:30; Stop 09/22/18 at 21:29 Acetaminophen (Tylenol Tab) 650 mg ER [place] PRN PO .MILD PAIN 1-3 OR TEMP; Start 09/21/18 at 21:30; Stop 09/22/18 at 21:29 Sodium Chloride 1,000 ml @ 125 mls/hr Q8H IV Last administered on 09/22/18at 02:19; Admin Dose 125 MLS/HR; Start 09/22/18 at 00:49 IV Flush (NS 3 ml) 3 ml PER PROTOCOL IV ; Start 09/22/18 at 01:00 Ondansetron HCl (Zofran Inj) 4 mg Q6H PRN IV NAUSEA/VOMITING; Start 09/22/18 at 01:00 Acetaminophen (Tylenol Tab) 650 mg Q6H PRN PO .PAIN 1-3 OR TEMP; Start 09/22/18 at 01:00 Heparin Sodium (Porcine) (Heparin (5000 Units/1ml)) 5,000 unit Q12 SC ; Start 09/22/18 at 09:00 Albuterol/ Ipratropium (Duoneb) 3 ml Q2H RESP THERAPY PRN HHN SHORTNESS OF BREATH; Start 09/22/18 at 01:00 Aspirin (Aspirin) 81 mg DAILY PO ; Start 09/22/18 at 09:00 Atorvastatin Calcium (Lipitor) 40 mg QHS PO ; Start 09/22/18 at 21:00 Buspirone HCl (Buspar) 15 mg TID PO ; Start 09/22/18 at 09:00 Lisinopril (Zestril) 40 mg DAILY PO ; Start 09/22/18 at 09:00 Metformin HCl (Glucophage) 1,000 mg BID WITH MEALS PO ; Start 09/22/18 at 08:00 Cefepime HCl 50 ml @ 100 mls/hr Q12H IVPB ; Start 09/22/18 at 09:00 Vancomycin HCl (Vanco Iv Per Pharmacy) VANCOMYCIN PER PHARMACY PER PROTOCOL XX ; Start 09/22/18 at 09:00 Miscellaneous Information 1 ea NOTE XX ; Start 09/22/18 at 01:30 Glucose (Glutose) 15 gm Q15M PRN PO DECREASED GLUCOSE; Start 09/22/18 at 01:30 Glucose (Glutose) 22.5 gm Q15M PRN PO DECREASED GLUCOSE; Start 09/22/18 at 01:30 Dextrose (D50w Syringe) 25 ml Q15M PRN IV DECREASED GLUCOSE; Start 09/22/18 at 01:30 Dextrose (D50w Syringe) 50 ml Q15M PRN IV DECREASED GLUCOSE; Start 09/22/18 at 01:30 Glucagon (Glucagen) 1 mg Q15M PRN IM DECREASED GLUCOSE; Start 09/22/18 at 01:30 Glucose (Glutose) 15 gm Q15M PRN BUCCAL DECREASED GLUCOSE; Start 09/22/18 at 01:30 Vancomycin HCl 1.25 gm/Sodium Chloride 250 ml @ 83.333 mls/ hr Q12H IVPB ; Start 09/22/18 at 14:00 Miscellaneous Information (*Rx Drug Level Order Reminder*) VANCO TR 1300 ONCE XX ; Start 09/23/18 at 13:00; Stop 09/23/18 at 13:01 Coded Allergies: latex (Unverified Allergy, Unknown, 09/21/18) Family History Significant Family History: no pertinent family hx Social History Smoking Status: Current every day smoker Exam/Review of Systems Vital Signs Vitals Vital Signs Date Temp Pulse Resp B/P (MAP) Pulse Ox O2 O2 Flow FiO2 Time Delivery Rate 09/22/18 97.4 70 17 135/89 100 Room Air 04:17 (104) Intake and Output 09/21/18 09/21/18 09/22/18 1515:00 23:00 07:00 OutputOutput Total 900 ml BalanceBalance -900 ml JONNIE VARELA MD Sep 22, 2018 05:58
[2018-09-22 06:20] VITALS: BP 144/81; PULSE 71; RESP 16
[2018-09-22] MEDS ORDERED: metFORMIN 500 MG TAB PO SCH (08:00)
[2018-09-22] MEDS ORDERED: VANCOMYCIN IV PER PHARMACY XX SCH (09:00)
[2018-09-22] MEDS ORDERED: LISINOPRIL 20 MG TAB PO SCH (09:00)
[2018-09-22] MEDS ORDERED: ASPIRIN 81 MG TAB PO SCH (09:00)
[2018-09-22] MEDS ORDERED: CEFEPIME 1GM/50 ML (PMX) 50 ML IVPB SCH (09:00)
[2018-09-22] MEDS ORDERED: HEPARIN 5,000 UNIT/1 ML VIAL SC SCH (09:00)
[2018-09-22] MEDS ORDERED: BUSPIRONE 10 MG TAB PO SCH (09:00)
[2018-09-22] MEDS ORDERED: VANCOMYCIN HCL 1.25 GM in SOD CHLORIDE 0.9% 250 ML IVPB SCH (14:00)
[2018-09-22] MEDS ORDERED: ATORVASTATIN 40 MG TAB PO SCH (21:00)
== END 2018-09-22 06:56 | disposition left against medical advice (07) ==
LOC: E/R 19:07
DX: D64.9 Anemia, unspecified (principal); R65.10 Systemic inflammatory response syndrome (SIRS) of non-infectious origin without acute organ dysfunction; I10 Essential (primary) hypertension; E11.9 Type 2 diabetes mellitus without complications; R06.02 Shortness of breath; Z79.82 Long term (current) use of aspirin; Z79.84 Long term (current) use of oral hypoglycemic drugs
CPT/HCPCS: 71045; 80053; 80307; 81003; 82962; 83605; 83735; 84484; 85025; 85610; 85730; 87040; 87086; 93005; 96374; 96375; J2543; J3370; J7030; Z7502; Z7610; J7050

== ENCOUNTER 2018-09-23 00:32 | Inpatient (IN) | payer OTHER ==
[~2018-09-23] VITALS: Ht 185.4 cm; Wt 89.1 kg
[~2018-09-23 00:32] MED LIST changes: -ACET325T33 PO; +ASPI-831 PO; -ASPI325T32 PO; -CEPH-443 PO; -FLUT9.9S NASAL; -HALO5TAB23 PO; +IBUP-1544 PO; -IBUP-1561 PO; -IBUP800T48 PO; -META-121 PO; -NALO4SPR NS
--- NOTE | 2018-09-23 00:54 | ERD ---
ER Documentation Chief Complaint Chief Complaint asked to come back to the ER because positive blood cultures, left AMA yesterday HPI The patient is a 43-year-old male, presenting to the ER because he was called back for admission due to positive blood culture from yesterday. He had gram- positive cocci in 2 out of 2 bottles. He was admitted yesterday for acute SIRS. He denies fever, chills, neck pain, chest pain, abdominal pain, vomiting, dysuria, diarrhea. He does smoke a pack a day, denies drinking, urine tox show amphetamine from yesterday Past medical history: Diabetes mellitus, hypertension, psychiatric illness Past surgical history: Right hip ROS All systems reviewed and are negative except as per history of present illness. Medications Home Meds Active Scripts Clotrimazole* (Clotrimazole* AF) 1% - 30 Gm Cream.gm., 1 APPLIC TOP BID for 7 Days, TUB Prov:AUSTIN MILLER PA-C 09/12/18 Ciclopirox Olamine (CICLODAN) 90 Gm Cream..g., 1 APPLIC TP DAILY for nail fungus, #1 TUB 0 Refills Prov:BHARGAVINIKKO 08/09/18 Reported Medications Ibuprofen* (Ibuprofen*) 800 Mg Tablet, 800 MG PO TID TAKE 1 TABLET BY MOUTH THREE TIMES A DAY WITH FOOD 09/21/18 Aspirin (Aspirin) 81 Mg Chew, 81 MG PO DAILY CHEW 1 TABLET BY MOUTH EVERY DAY 09/21/18 Buspirone Hcl* (Buspirone Hcl*) 10 Mg Tab, 15 MG PO TID, TAB 03/21/18 Lisinopril* (Lisinopril*) 40 Mg Tablet, 40 MG PO DAILY, #30 TAB 10/26/17 Atorvastatin* (Atorvastatin*) 40 Mg Tablet, 40 MG PO QHS, #30 TAB 10/26/17 Metformin* (Glucophage*) 1,000 Mg Tablet, 1000 MG PO BID, #60 TAB 10/17/17 Discontinued Reported Medications Haloperidol* (Haldol*) 5 Mg Tab, 5 MG PO QHS, TAB 10/26/17 Discontinued Scripts Cephalexin* (Keflex*) 500 Mg Capsule, 500 MG PO QID for 7 Days, CAP Prov:AUSTIN MILLER PA-C 09/12/18 Clotrimazole* (Clotrimazole* AF) 1% - 30 Gm Cream.gm., 1 APPLIC TOP BID for 7 Days, TUB Prov:JOHNARIELLUCIA F 08/14/18 Ibuprofen* (Motrin*) 400 Mg Tab, 400 MG PO Q6H PRN for PAIN AND OR ELEVATED TEMP, #30 TAB Prov:EDWIGE BILL MD 07/20/18 Acetaminophen* (Tylenol*) 325 Mg Tablet, 2 TAB PO Q6 PRN for PAIN AND OR ELEVATED TEMP, #20 TAB Prov:EDWIGE BILL MD 07/20/18 Fluticasone Propionate (Flonase Allergy Relief) 9.9 Ml [place].susp, 1 SPRAY NASAL BID, #1 BOTTLE TO EACH NOSTRIL Prov:PALLAVI HEWITT MD 07/18/18 Metaxalone* (Skelaxin*) 800 Mg Tablet, 800 MG PO TID PRN for MUSCLE SPASMS, #15 TAB Prov:LUCIA GURROLA 05/09/18 Ibuprofen* (Motrin*) 800 Mg Tab, 800 MG PO Q6H PRN for PAIN AND OR ELEVATED TEMP, #30 TAB Prov:GALILEOKIKEMINA F 05/09/18 Ibuprofen* (Motrin*) 800 Mg Tab, 800 MG PO Q6, #30 TAB Prov:AYDEN ROGERS PA-C 04/15/18 Naloxone HCl nasal spray (Narcan 4 mg/0.1 mL nasal) 4 Mg [place], 4 MG NS prn overdose, #1 SPRAY 2 Refills Prov:MICHAEL MONTOYA MD 04/13/18 Aspirin* (Aspirin* EC) 325 Mg Tab, 325 MG PO DAILY, #30 TAB 5 Refills Prov:RUSTY HUERTA 03/23/18 Allergies Allergies: Coded Allergies: latex (Unverified Allergy, Unknown, 09/21/18) PMhx/Soc History of Surgery: Yes (left hip, jaw) Anesthesia Reaction: No Hx Neurological Disorder: No Hx Respiratory Disorders: No Hx Cardiac Disorders: Yes (HTN) Hx Psychiatric Problems: Yes (Anxiety) Hx Miscellaneous Medical Probl: No Hx Alcohol Use: Yes (Occasional) Hx Substance Use: No Hx Tobacco Use: Yes Physical Exam Vitals Vital Signs Date Temp Pulse Resp B/P (MAP) Pulse Ox O2 O2 Flow FiO2 Time Delivery Rate 09/23/18 79 18 163/96 100 Room Air 01:48 (118) 09/23/18 97.9 69 16 175/88 98 00:38 (117) Physical Exam Const: No acute distress. Head: Atraumatic. Eyes: Normal Conjunctiva. ENT: Normal External Ears, Nose and Mouth. Neck: Full range of motion. No meningismus. Resp: Clear to auscultation bilaterally. Cardio: Regular rate and rhythm. Abd: Soft, non distended, normal bowel sounds, non tender. Skin: No petechiae or rashes. Back: No midline or flank tenderness. Ext: No cyanosis, or edema. Neur: Awake and alert. No focal deficit Psych: Normal Mood and Affect. Result Diagram: 09/23/1810909/23/18109 Results 24 hrs Laboratory Tests Test 09/23/18 01:08 09/23/18 01:09 09/23/18 01:10 POC Venous Lactate 1.2 mmol/L Prothrombin Time 14.4 Sec Prothrombin Time Ratio 1.1 INR International Normalized Ratio 1.11 Activated Partial Thromboplast Time 32.6 Sec White Blood Count 6.2 10^3/ul Red Blood Count 4.14 10^6/ul Hemoglobin 11.1 g/dl Hematocrit 34.4 % Mean Corpuscular Volume 83.1 fl Mean Corpuscular Hemoglobin 26.8 pg Mean Corpuscular Hemoglobin Concent 32.3 g/dl Red Cell Distribution Width 14.6 % Platelet Count 171 10^3/UL Mean Platelet Volume 10.1 fl Immature Granulocytes % 0.300 % Neutrophils % % Lymphocytes % % Monocytes % % Eosinophils % % Basophils % % Nucleated Red Blood Cells % 0.0 /100WBC Immature Granulocytes # 0.020 10^3/ul Neutrophils # 10^3/ul Lymphocytes # 10^3/ul Monocytes # 10^3/ul Eosinophils # 10^3/ul Basophils # 10^3/ul Nucleated Red Blood Cells # 10^3/ul Sodium Level 142 mmol/L Potassium Level 3.9 mmol/L Chloride Level 108 mmol/L Carbon Dioxide Level 26 mmol/L Anion Gap 8 Blood Urea Nitrogen 11 mg/dl Creatinine 0.69 mg/dl Est Glomerular Filtrat Rate mL/min > 60 mL/min Glucose Level 273 mg/dl Calcium Level 9.0 mg/dl Total Bilirubin 0.3 mg/dl Direct Bilirubin 0.00 mg/dl Indirect Bilirubin 0.3 mg/dl Aspartate Amino Transf (AST/SGOT) 53 IU/L Alanine Aminotransferase (ALT/SGPT) 67 IU/L Alkaline Phosphatase 130 IU/L Troponin I < 0.012 ng/ml Total Protein 7.3 g/dl Albumin 3.7 g/dl Globulin 3.60 g/dl Albumin/Globulin Ratio 1.02 Current Medications Medications Dose Sig/[place] Start Time Status Last (Trade) Ordered Route PRN Stop Time Admin Dose Reason Admin Piperacillin 100 ml @ ONCE ONCE 09/23/18 09/23/18 Sod/ 200 mls/hr IVPB 01:30 09/23/18 01:19 Tazobactam 01:59 Sod Vancomycin 250 ml @ ONCE ONCE 09/23/18 09/23/18 HCl 125 mls/hr IVPB 01:30 09/23/18 01:47 03:29 Procedures/MDM UA/Trop Pending EKG: Read by emergency physician Rate/Rhythm: Normal Sinus Rhythm 75 beats/min QRS, ST, T-waves: No ST elevation, no T inversion, NSIVCD Impression: Abnormal EKG MEDICAL MAKING DECISION: The patient is a 43-year-old male, presenting with acute bacteremia, abnormal LFT, substance abuse. He was treated with vancomycin IV and Zosyn IV for bacteremia The differential diagnoses considered include but are not limited to pneumonia, UTI, pyelonephritis, endocarditis Departure Diagnosis: Primary Impression: Bacteremia Additional Impressions: Anemia Abnormal LFTs Substance abuse Condition: Stable Comments I discussed the findings with the patient. I discussed the patient with Dr. Laurent at 2 AM, who was made aware of the lab, the treatment, the patient condition. The patient is admitted to [facility] Disclaimer: Inadvertent spelling and grammatical errors are likely due to EHR/dictation software use and do not reflect on the overall quality of patient care. Also, please note that the electronic time recorded on this note does not necessarily reflect the actual time of the patient encounter. NIKKO MARLEY MD Sep 23, 2018 00:54
[2018-09-23] MEDS ORDERED: PIPER-TAZO 3.375 GM IV (PMX) 100 ML IVPB ONE (01:30)
[2018-09-23] MEDS ORDERED: VANCOMYCIN 1 GM (PMX) 250 ML IVPB ONE (01:30)
[2018-09-23] MEDS ORDERED: NACL 0.9% 3 ML SYG IV SCH (03:00)
[2018-09-23] MEDS ORDERED: ACETAMINOPHEN 325 MG TAB PO PRN ×2 (03:00→16:00)
[2018-09-23] MEDS ORDERED: ONDANSETRON 4 MG INJ IV PRN (03:00)
[2018-09-23] MEDS ORDERED: ALBUTEROL/IPRATROPIUM (NEB) 3 ML AMP HHN PRN (03:00)
[2018-09-23] MEDS ORDERED: LABETALOL HCL 20MG INJ IV ONE (03:30)
[2018-09-23] MEDS ORDERED: VANCOMYCIN 750 MG (PMX) 250 ML IVPB ONE (04:00)
[2018-09-23 05:23] VITALS: BP 190/95; PULSE 67; RESP 17
[2018-09-23 05:43] VITALS: Ht 185.4 cm; Wt 89.1 kg
[2018-09-23] MEDS ORDERED: hydrALAzine 20 MG INJ IV ONE (06:10)
[2018-09-23] MEDS: SOD CHLORIDE 0.9% 1,000 ML IV SCH ×2 (06:16→12:53)
--- NOTE | 2018-09-23 06:39 | HP ---
Date/Time of Note Date/Time of Note DATE: 09/23/18 TIME: 06:33 Assessment/Plan VTE Prophylaxis Pharmacological prophylaxis: heparin Lines/Catheters IV Catheter Type (from Nrs): Peripheral IV Assessment/Plan Assessment/Plan 1. Gram-positive cocci bacteremia -Patient was actually admitted by myself yesterday morning. At that time he was febrile with a temperature of 102.6 with a white count of 19,000. Patient left AMA from the ER and now he returned after he was notified about positive blood culture -IV antibiotic, IV fluid -Repeat culture results 2. Hypertension: BP not at goal. Continue home meds. Adjust as needed 3. Type 2 diabetes: Continue metformin 4. Dyslipidemia: Continue statin 5. Anxiety: Continue home med Result Diagram: 09/23/18 0110 09/23/18 0110 Results 24hrs Laboratory Tests Test 09/23/18 01:08 09/23/18 01:09 09/23/18 01:10 09/23/18 01:54 POC Venous Lactate 1.2 Prothrombin Time 14.4 Prothrombin Time Ratio 1.1 INR International 1.11 Normalized Ratio Activated 32.6 Partial Thromboplast Time White Blood Count 6.2 # Red Blood Count 4.14 L Hemoglobin 11.1 L Hematocrit 34.4 L Mean Corpuscular Volume 83.1 Mean Corpuscular 26.8 L Hemoglobin Mean Corpuscular 32.3 Hemoglobin Concent Red Cell Distribution 14.6 H Width Platelet Count 171 # Mean Platelet Volume 10.1 Immature Granulocytes % 0.300 Neutrophils % Segmented Neutrophils 71 % (Manual) Lymphocytes % Lymphocytes % (Manual) 18 Monocytes % Monocytes % (Manual) 8 Eosinophils % Eosinophils % (Manual) 1 Basophils % Basophils % (Manual) 2 Nucleated Red Blood 0.0 Cells % Immature Granulocytes # 0.020 Neutrophils # Lymphocytes (Manual) 1.1 Lymphocytes # Monocytes # Monocytes # (Manual) 0.4 Eosinophils # Basophils # Basophils # (Manual) 0.1 H Nucleated Red Blood Cells # Platelet Estimate NORMAL Sodium Level 142 Potassium Level 3.9 Chloride Level 108 Carbon Dioxide Level 26 Anion Gap 8 Blood Urea Nitrogen 11 Creatinine 0.69 Est Glomerular Filtrat > 60 Rate mL/min Glucose Level 273 H Calcium Level 9.0 Total Bilirubin 0.3 Direct Bilirubin 0.00 Indirect Bilirubin 0.3 Aspartate Amino 53 H Transf (AST/SGOT) Alanine 67 Aminotransferase (ALT/SG PT) Alkaline Phosphatase 130 H Troponin I < 0.012 Total Protein 7.3 # Albumin 3.7 Globulin 3.60 H Albumin/Globulin Ratio 1.02 Urine Color YELLOW Urine Clarity CLEAR Urine pH 7.0 Urine Specific [place] 1.022 Urine Ketones NEGATIVE Urine Nitrite NEGATIVE Urine Bilirubin NEGATIVE Urine Urobilinogen NEGATIVE Urine Leukocyte Esterase NEGATIVE Urine Microscopic RBC 10 H Urine Microscopic WBC 1 Urine Hemoglobin 1+ H Urine Glucose 3+ H Urine Total Protein NEGATIVE Test 09/23/18 03:50 Lactic Acid Level 0.8 HPI/ROS Admit Date/Time Admit Date/Time Sep 23, 2018 at 01:55 Hx of Present Illness Patient is a 43-year-old male with a history of hypertension, type 2 diabetes, dyslipidemia, anxiety who was actually admitted by myself yesterday morning after he was brought to the ER for fever and generalized weakness. At that time, patient complained of generalized feeling of unwell. According to family, patient had been missing for 2days. Reportedly he had been more sleepy. No cough, shortness of breath, chest pain, nausea/vomiting or diarrhea. When he presented to the ER yesterday, he was found to be febrile with temperature as high as 102.6, heart rate in the 120s, WBC 19,000. Chest x-ray shows scattered atelectasis and elevated right hemidiaphragm otherwise no other findings. UA negative. Patient unfortunately left AMA from ER. He was called back because 2 out of 2 bottles found to be positive for GPC. This time around, he is afebrile and WBC WNL. PMH/Family/Social Past Medical History Past Surgical Hx: other Family History Significant Family History: no pertinent family hx Social History Alcohol Use: none Smoking Status: Never smoker Drug Use: none Exam Constitutional: other (No acute distress) Head: normocephalic, atraumatic Eyes: EOMI, PERRL Respiratory: clear to auscultation, normal air movement Cardiovascular: regular rate and rhythm Gastrointestinal: soft Extremities: normal pulses Medications Current Medications Sodium Chloride 1,000 ml @ 100 mls/hr Q10H IV Last administered on 09/23/18at 06:16; Admin Dose 100 MLS/HR; Start 09/23/18 at 02:53 IV Flush (NS 3 ml) 3 ml PER PROTOCOL IV ; Start 09/23/18 at 03:00 Ondansetron HCl (Zofran Inj) 4 mg Q6H PRN IV NAUSEA/VOMITING; Start 09/23/18 at 03:00 Acetaminophen (Tylenol Tab) 650 mg Q6H PRN PO .PAIN 1-3 OR TEMP; Start 09/23/18 at 03:00 Heparin Sodium (Porcine) (Heparin (5000 Units/1ml)) 5,000 unit Q12 SC ; Start 09/23/18 at 09:00 Albuterol/ Ipratropium (Duoneb) 3 ml Q2H RESP THERAPY PRN HHN SHORTNESS OF BREATH; Start 09/23/18 at 03:00 Aspirin (Aspirin) 81 mg DAILY PO ; Start 09/23/18 at 09:00 Atorvastatin Calcium (Lipitor) 40 mg QHS PO ; Start 09/23/18 at 21:00 Buspirone HCl (Buspar) 15 mg TID PO ; Start 09/23/18 at 09:00 Lisinopril (Zestril) 40 mg DAILY PO ; Start 09/23/18 at 09:00 Metformin HCl (Glucophage) 1,000 mg BID WITH MEALS PO ; Start 09/23/18 at 09:00 Diagnostic Test (Pha) (Accu-Chek) 1 ea AC MEALS AND BEDTIME XX ; Start 09/23/18 at 07:00 Vancomycin HCl (Vanco Iv Per Pharmacy) VANCOMYCIN PER PHARMACY PER PROTOCOL XX ; Start 09/23/18 at 09:00 Vancomycin HCl 1.25 gm/Sodium Chloride 250 ml @ 83.333 mls/ hr Q12H IVPB ; Start 09/23/18 at 14:00 Miscellaneous Information (*Rx Drug Level Order Reminder*) VANCO TR 1300 ONCE XX ; Start 09/24/18 at 13:00; Stop 09/24/18 at 13:01 Coded Allergies: latex (Unverified Allergy, Unknown, 09/21/18) Family History Significant Family History: no pertinent family hx Social History Smoking Status: Light tobacco smoker Exam/Review of Systems Vital Signs Vitals Vital Signs Date Temp Pulse Resp B/P (MAP) Pulse Ox O2 O2 Flow FiO2 Time Delivery Rate 09/23/18 98.1 67 17 190/95 93 05:23 (126) 09/23/18 Room Air 04:40 Intake and Output 09/22/18 09/22/18 09/23/18 1515:00 23:00 07:00 IntakeIntake Total 250 ml BalanceBalance 250 ml JONNIE VARELA MD Sep 23, 2018 06:39
[2018-09-23] MEDS: ACCU-CHEK XX SCH ×3 (07:00→17:08)
[2018-09-23 07:33] VITALS: BP 174/88; PULSE 64; RESP 16; RESP 64
[2018-09-23] MEDS: BUSPIRONE 10 MG TAB PO SCH ×2 (08:34→12:27)
[2018-09-23] MEDS: metFORMIN 500 MG TAB PO SCH ×2 (08:35→17:14)
[2018-09-23] MEDS ORDERED: LISINOPRIL 20 MG TAB PO SCH (09:00)
[2018-09-23] MEDS ORDERED: VANCOMYCIN IV PER PHARMACY XX SCH (09:00)
[2018-09-23] MEDS ORDERED: ASPIRIN 81 MG TAB PO SCH (09:00)
[2018-09-23] MEDS ORDERED: HEPARIN 5,000 UNIT/1 ML VIAL SC SCH (09:00)
[2018-09-23] MEDS ORDERED: GLUCOSE GEL 15 GRAM TUBE PO PRN ×2 (13:30)
[2018-09-23] MEDS ORDERED: GLUCOSE GEL 15 GRAM TUBE BUCCAL PRN (13:30)
[2018-09-23] MEDS ORDERED: GLUCAGON 1 MG INJ IM PRN (13:30)
[2018-09-23] MEDS ORDERED: DEXTROSE 50% 50 ML SYRINGE IV PRN ×2 (13:30)
[2018-09-23] MEDS: INSULIN ASPART [NOVOLOG] 3 ML PEN SC SCH ×2 (13:43→17:11)
[2018-09-23 13:52] VITALS: PULSE 73; RESP 16
[2018-09-23] MEDS ORDERED: VANCOMYCIN HCL 1.25 GM in SOD CHLORIDE 0.9% 250 ML IVPB SCH (14:00)
[2018-09-23] MEDS ORDERED: OXYMETAZOLINE 0.05% 15 ML NAS SPRAY NASAL SCH (16:00)
[2018-09-23] MEDS ORDERED: ALBUTEROL HFA 8 GM INHALER INH PRN (16:00)
--- NOTE | 2018-09-23 16:26 | CONS ---
DATE OF ADMISSION: 09/23/2018 DATE OF CONSULTATION: 09/23/2018 TYPE OF CONSULTATION: Infectious Disease. REASON FOR CONSULTATION: Antibiotic management. HISTORY OF PRESENT ILLNESS: Samuel Shields is a 43-year-old male who comes in with positive blood cultur es. The patient presented to the emergency room yesterday for acute systemic inflammatory response s yndrome. He denies fever, chills, neck pain, chest pain. He left AMA yesterday. He has a history o f diabetes, hypertension, psychiatric illness and surgery to his right hip. PAST MEDICAL HISTORY: Includes hypertension and anxiety. HABITS: He does smoke. He does drink. Does not abuse drugs. ALLERGIES: LATEX. PHYSICAL EXAMINATION: GENERAL: He is in no acute distress. VITAL SIGNS: Stable. HEENT: Within normal limits. NECK: Supple. LYMPH NODES: None palpable. CHEST: Decreased breath sounds at the bases. HEART: Without murmur or gallop. ABDOMEN: Soft, nontender, without organosplenomegaly or masses. EXTREMITIES: Without cyanosis, clubbing, or edema. RECTAL AND GENITAL: Deferred. NEUROLOGIC: No focal neurological abnormalities. ANCILLARY LABORATORY DATA: His white count is 6.2, H and H 11.1 and 34.4, platelet count 171,000. B UN and creatinine 11/0.69, glucose 273. IMPRESSION AND PLAN: The patient was started on vancomycin and Zosyn. The patient had acute bactere padmini, the sources of which were unclear. He has gram-positive cocci in his blood. He was febrile to 102.6 with a white count of 19,000 yesterday. Today, his white count is back to 6.2. He will be wor ked up for pneumonia and for urinary tract infection. His x-ray shows scattered atelectasis in both lungs, elevated right hemidiaphragm. Repeat blood cultures were done, urine and feces, stool culture s. We will observe. I will dictate my findings to the hospitalist. Dictated By: CHRISTIE CUTLER MD, JD/KRISTAL Conf#: [id number] DID#: [id number] CC: JONNIE VARELA MD;*EndCC*
[2018-09-23] MEDS ORDERED: INSULIN ASPART [NOVOLOG] 3 ML PEN SC SCH (18:00)
--- NOTE | 2018-09-23 18:58 | PN ---
Date/Time of Note Date/Time of Note DATE: 09/23/18 TIME: 18:56 Assessment/Plan VTE Prophylaxis Risk score (from [facility])>0 risk: 1 SCD applied (from [facility]): Yes SCD contraindicated: low risk/ambulating Pharmacological prophylaxis: NA/contraindicated Pharm contraindication: low risk/ambulating Lines/Catheters IV C[facility]ter Type (from [facility] Saline Lock Urinary Cath still in place: No Assessment/Plan Hospital Course H coverage Assessment plan 1. Sepsis/bacteremia. Follow-up on cultures. Not a candidate for PICC. source? 2. Substance abuse: Meth; past cocaine. Denies injection use 3. Tobacco abuse counseling patch 4. Hypertension 5. Type 2 diabetes? 6. Dyslipidemia 7. Metabolic syndrome 8. Anemia 9. Nonadherence left AMA 2 days ago Subjective: Ambulating no fever. No dyspnea. Objective: Vital signs stable Physical exam No pallor Regular no murmur rub gallop Clear Benign No edema Result Diagram: 09/23/18 0110 09/23/18 0110 Results 24hrs Laboratory Tests Test 09/23/18 01:08 09/23/18 01:09 09/23/18 01:10 09/23/18 01:54 POC Venous Lactate 1.2 Prothrombin Time 14.4 Prothrombin Time Ratio 1.1 INR International 1.11 Normalized Ratio Activated 32.6 Partial Thromboplast Time White Blood Count 6.2 # Red Blood Count 4.14 L Hemoglobin 11.1 L Hematocrit 34.4 L Mean Corpuscular Volume 83.1 Mean Corpuscular 26.8 L Hemoglobin Mean Corpuscular 32.3 Hemoglobin Concent Red Cell Distribution 14.6 H Width Platelet Count 171 # Mean Platelet Volume 10.1 Immature Granulocytes % 0.300 Neutrophils % 65.7 Segmented Neutrophils 71 % (Manual) Lymphocytes % 17.4 Lymphocytes % (Manual) 18 Monocytes % 15.0 H Monocytes % (Manual) 8 Eosinophils % 0.8 Eosinophils % (Manual) 1 Basophils % 0.8 Basophils % (Manual) 2 Nucleated Red Blood 0.0 Cells % Immature Granulocytes # 0.020 Neutrophils # 4.1 Lymphocytes (Manual) 1.1 Lymphocytes # 1.1 Monocytes # 0.9 Monocytes # (Manual) 0.4 Eosinophils # 0.1 Basophils # 0.1 Basophils # (Manual) 0.1 H Nucleated Red Blood 0.0 Cells # Platelet Estimate NORMAL Sodium Level 142 Potassium Level 3.9 Chloride Level 108 Carbon Dioxide Level 26 Anion Gap 8 Blood Urea Nitrogen 11 Creatinine 0.69 Est Glomerular Filtrat > 60 Rate mL/min Glucose Level 273 H Calcium Level 9.0 Total Bilirubin 0.3 Direct Bilirubin 0.00 Indirect Bilirubin 0.3 Aspartate Amino 53 H Transf (AST/SGOT) Alanine 67 Aminotransferase (ALT/SG PT) Alkaline Phosphatase 130 H Troponin I < 0.012 Total Protein 7.3 # Albumin 3.7 Globulin 3.60 H Albumin/Globulin Ratio 1.02 Urine Color YELLOW Urine Clarity CLEAR Urine pH 7.0 Urine Specific [place] 1.022 Urine Ketones NEGATIVE Urine Nitrite NEGATIVE Urine Bilirubin NEGATIVE Urine Urobilinogen NEGATIVE Urine Leukocyte Esterase NEGATIVE Urine Microscopic RBC 10 H Urine Microscopic WBC 1 Urine Hemoglobin 1+ H Urine Glucose 3+ H Urine Total Protein NEGATIVE Test 09/23/18 03:50 09/23/18 06:06 09/23/18 08:33 09/23/18 12:26 Lactic Acid Level 0.8 0.9 Bedside Glucose 184 241 H Test 09/23/18 13:41 09/23/18 17:09 Bedside Glucose 263 H 150 Exam/Review of Systems Exam Vitals Vital Signs Date Temp Pulse Resp B/P (MAP) Pulse Ox O2 O2 Flow FiO2 Time Delivery Rate 09/23/18 97.4 73 16 97 Room Air 13:52 Intake and Output 09/22/18 09/22/18 09/23/18 1515:00 23:00 07:00 IntakeIntake Total 250 ml BalanceBalance 250 ml Results Results 24hrs Laboratory Tests Test 09/23/18 01:08 09/23/18 01:09 09/23/18 01:10 09/23/18 01:54 POC Venous Lactate 1.2 Prothrombin Time 14.4 Prothrombin Time Ratio 1.1 INR International 1.11 Normalized Ratio Activated 32.6 Partial Thromboplast Time White Blood Count 6.2 # Red Blood Count 4.14 L Hemoglobin 11.1 L Hematocrit 34.4 L Mean Corpuscular Volume 83.1 Mean Corpuscular 26.8 L Hemoglobin Mean Corpuscular 32.3 Hemoglobin Concent Red Cell Distribution 14.6 H Width Platelet Count 171 # Mean Platelet Volume 10.1 Immature Granulocytes % 0.300 Neutrophils % 65.7 Segmented Neutrophils 71 % (Manual) Lymphocytes % 17.4 Lymphocytes % (Manual) 18 Monocytes % 15.0 H Monocytes % (Manual) 8 Eosinophils % 0.8 Eosinophils % (Manual) 1 Basophils % 0.8 Basophils % (Manual) 2 Nucleated Red Blood 0.0 Cells % Immature Granulocytes # 0.020 Neutrophils # 4.1 Lymphocytes (Manual) 1.1 Lymphocytes # 1.1 Monocytes # 0.9 Monocytes # (Manual) 0.4 Eosinophils # 0.1 Basophils # 0.1 Basophils # (Manual) 0.1 H Nucleated Red Blood 0.0 Cells # Platelet Estimate NORMAL Sodium Level 142 Potassium Level 3.9 Chloride Level 108 Carbon Dioxide Level 26 Anion Gap 8 Blood Urea Nitrogen 11 Creatinine 0.69 Est Glomerular Filtrat > 60 Rate mL/min Glucose Level 273 H Calcium Level 9.0 Total Bilirubin 0.3 Direct Bilirubin 0.00 Indirect Bilirubin 0.3 Aspartate Amino 53 H Transf (AST/SGOT) Alanine 67 Aminotransferase (ALT/SG PT) Alkaline Phosphatase 130 H Troponin I < 0.012 Total Protein 7.3 # Albumin 3.7 Globulin 3.60 H Albumin/Globulin Ratio 1.02 Urine Color YELLOW Urine Clarity CLEAR Urine pH 7.0 Urine Specific [place] 1.022 Urine Ketones NEGATIVE Urine Nitrite NEGATIVE Urine Bilirubin NEGATIVE Urine Urobilinogen NEGATIVE Urine Leukocyte Esterase NEGATIVE Urine Microscopic RBC 10 H Urine Microscopic WBC 1 Urine Hemoglobin 1+ H Urine Glucose 3+ H Urine Total Protein NEGATIVE Test 09/23/18 03:50 09/23/18 06:06 09/23/18 08:33 09/23/18 12:26 Lactic Acid Level 0.8 0.9 Bedside Glucose 184 241 H Test 09/23/18 13:41 09/23/18 17:09 Bedside Glucose 263 H 150 Medications Medication Current Medications IV Flush (NS 3 ml) 3 ml PER PROTOCOL IV ; Start 09/23/18 at 03:00 Ondansetron HCl (Zofran Inj) 4 mg Q6H PRN IV NAUSEA/VOMITING; Start 09/23/18 at 03:00 Albuterol/ Ipratropium (Duoneb) 3 ml Q2H RESP THERAPY PRN HHN SHORTNESS OF BREATH; Start 09/23/18 at 03:00 Aspirin (Aspirin) 81 mg DAILY PO Last administered on 09/23/18at 08:36; Admin Dose 81 MG; Start 09/23/18 at 09:00 Atorvastatin Calcium (Lipitor) 40 mg QHS PO ; Start 09/23/18 at 21:00 Buspirone HCl (Buspar) 15 mg TID PO Last administered on 09/23/18at 12:27; Admin Dose 15 MG; Start 09/23/18 at 09:00 Lisinopril (Zestril) 40 mg DAILY PO Last administered on 09/23/18at 08:36; Admin Dose 40 MG; Start 09/23/18 at 09:00 Metformin HCl (Glucophage) 1,000 mg BID WITH MEALS PO Last administered on 09/23/18at 17:14; Admin Dose 1,000 MG; Start 09/23/18 at 09:00 Diagnostic Test (Pha) (Accu-Chek) 1 ea AC MEALS AND BEDTIME XX ; Start 09/23/18 at 07:00 Vancomycin HCl (Vanco Iv Per Pharmacy) VANCOMYCIN PER PHARMACY PER PROTOCOL XX ; Start 09/23/18 at 09:00 Vancomycin HCl 1.25 gm/Sodium Chloride 250 ml @ 83.333 mls/ hr Q12H IVPB Last administered on 09/23/18at 13:45; Admin Dose 83.333 MLS/HR; Start 09/23/18 at 14:00 Miscellaneous Information (*Rx Drug Level Order Reminder*) VANCO TR 1300 ONCE XX ; Start 09/24/18 at 13:00; Stop 09/24/18 at 13:01 Insulin Aspart (Novolog Insulin Pen) NOVOLOG *MODERATE* ALGORITHM AC MEALS SC Last administered on 09/23/18at 17:11; Admin Dose 2 UNIT; Start 09/23/18 at 17:30 Miscellaneous Information 1 ea NOTE XX ; Start 09/23/18 at 13:30 Glucose (Glutose) 15 gm Q15M PRN PO DECREASED GLUCOSE; Start 09/23/18 at 13:30 Glucose (Glutose) 22.5 gm Q15M PRN PO DECREASED GLUCOSE; Start 09/23/18 at 13:30 Dextrose (D50w Syringe) 25 ml Q15M PRN IV DECREASED GLUCOSE; Start 09/23/18 at 13:30 Dextrose (D50w Syringe) 50 ml Q15M PRN IV DECREASED GLUCOSE; Start 09/23/18 at 13:30 Glucagon (Glucagen) 1 mg Q15M PRN IM DECREASED GLUCOSE; Start 09/23/18 at 13:30 Glucose (Glutose) 15 gm Q15M PRN BUCCAL DECREASED GLUCOSE; Start 09/23/18 at 13:30 Clonidine (Catapres) 0.1 mg Q4H PRN PO SBP GREATER THAN 150 Last administered on 09/23/18at 15:08; Admin Dose 0.1 MG; Start 09/23/18 at 15:00 Oxymetazoline HCl (Afrin [place]) 2 spray BID NASAL ; Start 09/23/18 at 16:00 Enoxaparin Sodium (Lovenox) 40 mg DAILY SC ; Start 09/24/18 at 09:00 Acetaminophen (Tylenol Tab) 650 mg Q4H PRN PO MILD PAIN(1-3)OR ELEVATED TEMP; Start 09/23/18 at 16:00 Albuterol (Ventolin Hfa) 2 puff Q4H RESP THERAPY PRN INH SHORTNESS OF BREATH; Start 09/23/18 at 16:00 BETY MARTINEZ MD Sep 23, 2018 18:58
[2018-09-23] MEDS ORDERED: NICOTINE (14 MG/24 HR) PATCH TRANSDERM PRN (19:30)
[2018-09-23 19:58] VITALS: BP 173/90; PULSE 70; RESP 16
[2018-09-23] MEDS ORDERED: ATORVASTATIN 40 MG TAB PO SCH (21:00)
[2018-09-24] MEDS ORDERED: ENOXAPARIN 40 MG/0.4 ML SYG SC SCH (09:00)
== END 2018-09-23 21:17 | disposition left against medical advice (07) | DRG 872 ==
LOC: E/R 00:32 → 5EC 01:55
PROVIDERS: ADMIT Internal Medicine; ATTEND Internal Medicine
DX: R78.81 Bacteremia (principal); D64.9 Anemia, unspecified; I10 Essential (primary) hypertension; E11.9 Type 2 diabetes mellitus without complications; E78.5 Hyperlipidemia, unspecified; F41.9 Anxiety disorder, unspecified; Z72.0 Tobacco use; F15.10 Other stimulant abuse, uncomplicated; E88.81 Metabolic syndrome and other insulin resistance; Z91.19 Patient's noncompliance with other medical treatment and regimen
CPT/HCPCS: 36415; 80053; 81001; 82962; 83605; 84484; 85025; 85610; 85730; 87086; 93005; 96365; 96375; J0360; J1644; J1815; J2543; J3370; J7030; J7050

== ENCOUNTER 2018-09-24 20:03 | Emergency (ER) | payer SELFPAY ==
[~2018-09-24] VITALS: Ht 193 cm; Wt 86.0 kg
[2018-09-24 20:10] VITALS: BP 129/73; PULSE 98; RESP 24; Ht 193 cm; Wt 86.0 kg
== END 2018-09-25 00:57 | disposition left against medical advice (07) ==
LOC: E/R 20:03
DX: Z53.21 Procedure and treatment not carried out due to patient leaving prior to being seen by health care provider (principal)

== ENCOUNTER 2018-09-26 14:30 | Emergency (ER) | payer SELFPAY ==
[~2018-09-26] VITALS: Ht 182.9 cm; Wt 88.4 kg
[2018-09-26 14:34] VITALS: BP 143/84; PULSE 80; RESP 16; Ht 182.9 cm; Wt 88.4 kg
--- NOTE | 2018-09-26 15:11 | EN ---
Date/Time of Note Date/Time of Note DATE: 09/26/18 TIME: 15:10 ER Progress Note The patient cannot be found when I went to assess him for medical care. The patient was search for throughout the emergency department in the bathrooms. It appears the patient eloped from the emergency room without being evaluated. MICHAEL MONTOYA MD Sep 26, 2018 15:11
== END 2018-09-26 15:39 | disposition left against medical advice (07) ==
LOC: E/R 14:30
DX: Z53.21 Procedure and treatment not carried out due to patient leaving prior to being seen by health care provider (principal)

== ENCOUNTER 2018-09-27 05:36 | Emergency (ER) | payer SELFPAY ==
[~2018-09-27] VITALS: Ht 193 cm; Wt 86.3 kg
[2018-09-27 05:39] VITALS: BP 157/80; PULSE 83; RESP 18; Ht 193 cm; Wt 86.3 kg
== END 2018-09-27 07:51 | disposition left against medical advice (07) ==
LOC: E/R 05:36
DX: Z53.21 Procedure and treatment not carried out due to patient leaving prior to being seen by health care provider (principal)

== ENCOUNTER 2018-09-28 14:22 | Emergency (ER) | payer OTHER ==
[~2018-09-28] VITALS: Ht 193 cm; Wt 95.0 kg
[2018-09-28 14:26] VITALS: BP 132/76; PULSE 71; RESP 18; Ht 193 cm; Wt 95.0 kg
--- NOTE | 2018-09-28 14:31 | ERD ---
ER Documentation Chief Complaint Chief Complaint SENT FROM CLINIC STATED +BLOOD CULTURE RESULT HPI Patient is a 43-year-old male with hypertension and diabetes who presents with "bacteria in the my blood". He was brought in by ambulance. He feels dizziness and high blood pressure. He feels tired. He went to the [facility] today who called 911 to bring him to the emergency department for evaluation. He told him that [facility] had [facility] and because of that they wanted him to go to the ER for evaluation. Upon review of old medical record the patient has multiple visits for various complaints. Review of the emergency department information exchange system shows 72 visits over the past 1 year. ROS All systems reviewed and are negative except as per history of present illness. Medications Home Meds Active Scripts Clotrimazole* (Clotrimazole* AF) 1% - 30 Gm Cream.gm., 1 APPLIC TOP BID for 7 Days, TUB Prov:AUSTIN MILLER PA-C 09/12/18 Ciclopirox Olamine (CICLODAN) 90 Gm Cream..g., 1 APPLIC TP DAILY for nail fungus, #1 TUB 0 Refills Prov:NIKKO BURK DO 08/09/18 Reported Medications Ibuprofen* (Ibuprofen*) 800 Mg Tablet, 800 MG PO TID TAKE 1 TABLET BY MOUTH THREE TIMES A DAY WITH FOOD 09/21/18 Aspirin (Aspirin) 81 Mg Chew, 81 MG PO DAILY CHEW 1 TABLET BY MOUTH EVERY DAY 09/21/18 Buspirone Hcl* (Buspirone Hcl*) 10 Mg Tab, 15 MG PO TID, TAB 03/21/18 Lisinopril* (Lisinopril*) 40 Mg Tablet, 40 MG PO DAILY, #30 TAB 10/26/17 Atorvastatin* (Atorvastatin*) 40 Mg Tablet, 40 MG PO QHS, #30 TAB 10/26/17 Metformin* (Glucophage*) 1,000 Mg Tablet, 1000 MG PO BID, #60 TAB 10/17/17 Discontinued Reported Medications Haloperidol* (Haldol*) 5 Mg Tab, 5 MG PO QHS, TAB 10/26/17 Discontinued Scripts Cephalexin* (Keflex*) 500 Mg Capsule, 500 MG PO QID for 7 Days, CAP Prov:AUSTIN MILLER PA-C 09/12/18 Clotrimazole* (Clotrimazole* AF) 1% - 30 Gm Cream.gm., 1 APPLIC TOP BID for 7 Days, TUB Prov:GALILEOKIKEMINA Jimenez 08/14/18 Ibuprofen* (Motrin*) 400 Mg Tab, 400 MG PO Q6H PRN for PAIN AND OR ELEVATED TEMP, #30 TAB Prov:EDWIGE BILL MD 07/20/18 Acetaminophen* (Tylenol*) 325 Mg Tablet, 2 TAB PO Q6 PRN for PAIN AND OR ELEVATED TEMP, #20 TAB Prov:EDWIGE BILL MD 07/20/18 Fluticasone Propionate (Flonase Allergy Relief) 9.9 Ml [place].susp, 1 SPRAY NASAL BID, #1 BOTTLE TO EACH NOSTRIL Prov:PALLAVI HEWITT MD 07/18/18 Metaxalone* (Skelaxin*) 800 Mg Tablet, 800 MG PO TID PRN for MUSCLE SPASMS, #15 TAB Prov:JOHNARIELLUCIA Jimenez 05/09/18 Ibuprofen* (Motrin*) 800 Mg Tab, 800 MG PO Q6H PRN for PAIN AND OR ELEVATED TEMP, #30 TAB Prov:LUCIA GURROLA F 05/09/18 Ibuprofen* (Motrin*) 800 Mg Tab, 800 MG PO Q6, #30 TAB Prov:AYDEN ROGERS PA-C 04/15/18 Naloxone HCl nasal spray (Narcan 4 mg/0.1 mL nasal) 4 Mg [place], 4 MG NS prn overdose, #1 SPRAY 2 Refills Prov:MICHAEL MONTOYA MD 04/13/18 Aspirin* (Aspirin* EC) 325 Mg Tab, 325 MG PO DAILY, #30 TAB 5 Refills Prov:RUSTY HUERTA 03/23/18 Allergies Allergies: Coded Allergies: latex (Unverified Allergy, Unknown, 09/21/18) PMhx/Soc History of Surgery: Yes (left hip, jaw) Anesthesia Reaction: No Hx Neurological Disorder: No Hx Respiratory Disorders: No Hx Cardiac Disorders: No Hx Psychiatric Problems: Yes (anxiety) Hx Miscellaneous Medical Probl: No (substance abuse) Hx Alcohol Use: No Hx Substance Use: No Hx Tobacco Use: Yes FmHx Family History: diabetes Physical Exam Vitals Vital Signs Date Temp Pulse Resp B/P (MAP) Pulse Ox O2 O2 Flow FiO2 Time Delivery Rate 09/28/18 97.1 71 18 132/76 99 14:26 (94) Physical Exam Const: No acute distress Head: Atraumatic Eyes: Normal Conjunctiva ENT: Normal External Ears, Nose and Mouth. Neck: Full range of motion. No meningismus. Resp: Clear to auscultation bilaterally Cardio: Regular rate and rhythm, no murmurs Abd: Soft, non tender, non distended. Normal bowel sounds Skin: No petechiae or rashes Back: No midline or flank tenderness Ext: No cyanosis, or edema Neur: Awake and alert Psych: Normal Mood and Affect Procedures/MDM Patient is a 43-year-old male who presents for saying that he had positive blood cultures. I reviewed labs that were done on September 23 and he had negative growth and blood cultures. He was admitted on that day anyway because of previously positive blood cultures. In any case I do not think that he has sepsis or serious bacterial infection at this time. He is otherwise well-appearing and I believe outpatient management is appropriate. He does not need further work-up or admission of the hospital. He is well-known to myself and to our staff. Departure Diagnosis: Primary Impression: Well adult exam Condition: Fair Patient Instructions: Normal Exam, (Child) (Adult) Additional Instructions: Call your primary care doctor TOMORROW for an appointment during the next 1 WEEK.Tell the racing secretary and handicapper that you were referred from this facility.See the doctor sooner or return here if your condition worsens before your appointment time. NATHANIEL MCKEON MD Sep 28, 2018 14:30
== END 2018-09-28 15:04 | disposition home or self-care (01) ==
LOC: E/R 14:22
DX: Z00.00 Encounter for general adult medical examination without abnormal findings (principal); I10 Essential (primary) hypertension; E11.9 Type 2 diabetes mellitus without complications; Z79.82 Long term (current) use of aspirin; Z79.84 Long term (current) use of oral hypoglycemic drugs; Z87.891 Personal history of nicotine dependence
CPT/HCPCS: 99283

== ENCOUNTER 2018-09-30 05:25 | Emergency (ER) | payer OTHER ==
[~2018-09-30] VITALS: Ht 188 cm; Wt 86.4 kg
[2018-09-30 05:27] VITALS: BP 162/99; PULSE 93; RESP 18; Ht 188 cm; Wt 86.4 kg
--- NOTE | 2018-09-30 05:40 | ERD ---
ER Documentation Chief Complaint Chief Complaint COUGH 1 WEEK HPI The patient is a 43-year-old male, presenting to the ER because of intermittent cough 1 week. He was seen in the ER yesterday. He denies fever, chills, neck pain, chest pain, abdominal pain, vomiting, dysuria, diarrhea. He does smoke a pack a day, denies drinking, does illicit drug Past medical history: Diabetes mellitus, hypertension, psychiatric illness Past surgical history: Right hip ROS All systems reviewed and are negative except as per history of present illness. Medications Home Meds Active Scripts Benzonatate* (Tessalon Perle*) 100 Mg Capsule, 100 MG PO Q8H PRN for COUGH, #14 CAP Prov:NIKKO MARLEY MD 09/30/18 Clotrimazole* (Clotrimazole* AF) 1% - 30 Gm Cream.gm., 1 APPLIC TOP BID for 7 Days, TUB Prov:AUSTIN MILLER PA-C 09/12/18 Ciclopirox Olamine (CICLODAN) 90 Gm Cream..g., 1 APPLIC TP DAILY for nail fungus, #1 TUB 0 Refills Prov:NIKKO BURK DO 08/09/18 Reported Medications Ibuprofen* (Ibuprofen*) 800 Mg Tablet, 800 MG PO TID TAKE 1 TABLET BY MOUTH THREE TIMES A DAY WITH FOOD 09/21/18 Aspirin (Aspirin) 81 Mg Chew, 81 MG PO DAILY CHEW 1 TABLET BY MOUTH EVERY DAY 09/21/18 Buspirone Hcl* (Buspirone Hcl*) 10 Mg Tab, 15 MG PO TID, TAB 03/21/18 Lisinopril* (Lisinopril*) 40 Mg Tablet, 40 MG PO DAILY, #30 TAB 10/26/17 Atorvastatin* (Atorvastatin*) 40 Mg Tablet, 40 MG PO QHS, #30 TAB 10/26/17 Metformin* (Glucophage*) 1,000 Mg Tablet, 1000 MG PO BID, #60 TAB 10/17/17 Allergies Allergies: Coded Allergies: latex (Unverified Allergy, Unknown, 09/21/18) PMhx/Soc History of Surgery: Yes (left hip, jaw) Anesthesia Reaction: No Hx Neurological Disorder: No Hx Respiratory Disorders: No Hx Cardiac Disorders: No Hx Psychiatric Problems: Yes (anxiety) Hx Miscellaneous Medical Probl: No (substance abuse) Hx Alcohol Use: No Hx Substance Use: No Hx Tobacco Use: Yes Physical Exam Vitals Vital Signs Date Temp Pulse Resp B/P (MAP) Pulse Ox O2 O2 Flow FiO2 Time Delivery Rate 09/30/18 97.6 93 18 162/99 98 05:27 (120) Physical Exam Const: No acute distress. Head: Atraumatic. Eyes: Normal Conjunctiva. ENT: Normal External Ears, Nose and Mouth. Bilateral tympanic membr anes and oropharynx are within normal limit Neck: Full range of motion. No meningismus. Resp: Clear to auscultation bilaterally. Cardio: Regular rate and rhythm. Abd: Soft, non distended, normal bowel sounds, non tender. Skin: No petechiae or rashes. Back: No midline or flank tenderness. Ext: No cyanosis, or edema. Neur: Awake and alert. No focal deficit Psych: Normal Mood and Affect. Procedures/MDM MEDICAL MAKING DECISION: The patient is a 43-year-old male, presenting with intermittent cough, is stable for present follow-up The differential diagnoses considered include but are not limited to viral syndrome, bronchitis, pneumonia, pna Departure Diagnosis: Primary Impression: Cough Condition: Good Comments He was discharged with Tessalon I discussed the findings with the patient. I advised the patient to follow-up with the primary physician in about 1-2 days, sooner if needed and return if any concern. Disclaimer: Inadvertent spelling and grammatical errors are likely due to EHR/dictation software use and do not reflect on the overall quality of patient care. Also, please note that the electronic time recorded on this note does not necessarily reflect the actual time of the patient encounter. NIKKO MARLEY MD Sep 30, 2018 05:40
[2018-09-30] MEDS ORDERED: BENZ-6 PO (05:43)
== END 2018-09-30 05:47 | disposition home or self-care (01) ==
LOC: E/R 05:25
DX: R05 Cough (principal); E11.9 Type 2 diabetes mellitus without complications; I10 Essential (primary) hypertension; Z79.82 Long term (current) use of aspirin; Z79.84 Long term (current) use of oral hypoglycemic drugs; Z87.891 Personal history of nicotine dependence
CPT/HCPCS: 99283

== ENCOUNTER 2018-10-03 23:24 | Emergency (ER) | payer OTHER ==
[~2018-10-03] VITALS: Wt 97.2 kg
[~2018-10-03 23:24] MED LIST changes: -IBUP-1542 PO
[2018-10-03 23:26] VITALS: BP 138/77; PULSE 80; RESP 18
[2018-10-03] MEDS ORDERED: IBUP-1542 PO (23:33)
--- NOTE | 2018-10-03 23:35 | ERD ---
ER Documentation Chief Complaint Chief Complaint RIGHT HIP PAIN NON TRAUMATIC . GENERAL HEADACHE HPI Patient is a 43-year-old male with a history of hypertension and diabetes who presents with headache and leg pain. The patient has no trauma. He is requesting pain medication. Upon review of old medical record the patient has multiple visits for various complaints. He is well-known to myself and to our staff. ROS All systems reviewed and are negative except as per history of present illness. Medications Home Meds Active Scripts Ibuprofen* (Motrin*) 600 Mg Tab, 600 MG PO Q6H PRN for PAIN AND OR ELEVATED TEMP, #30 TAB Prov:NATHANIEL MCKEON MD 10/03/18 Benzonatate* (Tessalon Perle*) 100 Mg Capsule, 100 MG PO Q8H PRN for COUGH, #14 CAP Prov:NIKKO MARLEY MD 09/30/18 Clotrimazole* (Clotrimazole* AF) 1% - 30 Gm Cream.gm., 1 APPLIC TOP BID for 7 Days, TUB Prov:AUSTIN MILLER PA-C 09/12/18 Ciclopirox Olamine (CICLODAN) 90 Gm Cream..g., 1 APPLIC TP DAILY for nail fungus, #1 TUB 0 Refills Prov:NIKKO BURK DO 08/09/18 Reported Medications Ibuprofen* (Ibuprofen*) 800 Mg Tablet, 800 MG PO TID TAKE 1 TABLET BY MOUTH THREE TIMES A DAY WITH FOOD 09/21/18 Aspirin (Aspirin) 81 Mg Chew, 81 MG PO DAILY CHEW 1 TABLET BY MOUTH EVERY DAY 09/21/18 Buspirone Hcl* (Buspirone Hcl*) 10 Mg Tab, 15 MG PO TID, TAB 03/21/18 Lisinopril* (Lisinopril*) 40 Mg Tablet, 40 MG PO DAILY, #30 TAB 10/26/17 Atorvastatin* (Atorvastatin*) 40 Mg Tablet, 40 MG PO QHS, #30 TAB 10/26/17 Metformin* (Glucophage*) 1,000 Mg Tablet, 1000 MG PO BID, #60 TAB 10/17/17 Allergies Allergies: Coded Allergies: latex (Unverified Allergy, Unknown, 09/21/18) PMhx/Soc History of Surgery: Yes (left hip, jaw) Anesthesia Reaction: No Hx Neurological Disorder: No Hx Respiratory Disorders: No Hx Cardiac Disorders: No Hx Psychiatric Problems: Yes (anxiety) Hx Miscellaneous Medical Probl: No (substance abuse) Hx Alcohol Use: No Hx Substance Use: Yes (amphetamine, marijuana) Hx Tobacco Use: Yes FmHx Family History: diabetes Physical Exam Vitals Vital Signs Date Temp Pulse Resp B/P (MAP) Pulse Ox O2 O2 Flow FiO2 Time Delivery Rate 10/03/18 98.1 80 18 138/77 98 23:26 (97) Physical Exam Const: No acute distress Head: Atraumatic Eyes: Normal Conjunctiva ENT: Normal External Ears, Nose and Mouth. Neck: Full range of motion. No meningismus. Resp: Clear to auscultation bilaterally Cardio: Regular rate and rhythm, no murmurs Abd: Soft, non tender, non distended. Normal bowel sounds Skin: No petechiae or rashes Back: No midline or flank tenderness Ext: No cyanosis, or edema Neur: Awake and alert Psych: Normal Mood and Affect Procedures/MDM Patient is a 43-year-old male presents with headache and leg pain. I believe this is acute on chronic pain. He will be given a prescription for ibuprofen. He will not be given any narcotics. He can return for any worsening symptoms. I do not believe he requires imaging tests at this time. Departure Diagnosis: Primary Impression: Hip pain Laterality: left Qualified Codes: M25.552 - Pain in left hip Additional Impression: Headache Headache type: unspecified Headache chronicity pattern: acute headache Intractability: not intractable Qualified Codes: R51 - Headache Condition: Fair Patient Instructions: Hip Precautions Referrals: [facility] (PCP) Additional Instructions: Call your primary care doctor TOMORROW for an appointment during the next 1 WEEK.Tell the attendance secretary that you were referred from this facility.See the doctor sooner or return here if your condition worsens before your appointment time. NATHANIEL MCKEON MD Oct 03, 2018 23:35
== END 2018-10-04 00:18 | disposition home or self-care (01) ==
LOC: E/R 23:24
DX: M25.552 Pain in left hip (principal); R51 Headache; I10 Essential (primary) hypertension; E11.9 Type 2 diabetes mellitus without complications; Z79.82 Long term (current) use of aspirin; Z79.84 Long term (current) use of oral hypoglycemic drugs; Z87.891 Personal history of nicotine dependence; Z91.040 Latex allergy status
CPT/HCPCS: 99282

== ENCOUNTER → 2018-10-03 | Emergency (ER) | payer OTHER ==
[~2018-10-03] VITALS: Wt 100.0 kg
[~2018-10-03] MED LIST changes: +BENZ-6 PO; +IBUP-1542 PO
[2018-10-03 17:14] VITALS: BP 149/85; PULSE 93; RESP 18
--- NOTE | 2018-10-03 17:20 | ERD ---
ER Documentation Chief Complaint Chief Complaint general fatigue and feeling sick . no distress HPI Patient is a 43-year-old male with a history of psychiatric disease who presents with saying that he wants a blood test. He said that he was called and told that he had a positive blood culture and needed to come back for test. I saw him for the same complaint about a week ago and I told him that his blood test was negative at that time he did not need to come back for this. Upon review of old medical record the patient has multiple visits to our emergency department and visits to other emergency departments as well. ROS All systems reviewed and are negative except as per history of present illness. Medications Home Meds Active Scripts Benzonatate* (Tessalon Perle*) 100 Mg Capsule, 100 MG PO Q8H PRN for COUGH, #14 CAP Prov:NIKKO MARLEY MD 09/30/18 Clotrimazole* (Clotrimazole* AF) 1% - 30 Gm Cream.gm., 1 APPLIC TOP BID for 7 Days, TUB Prov:AUSTIN MILLER PA-C 09/12/18 Ciclopirox Olamine (CICLODAN) 90 Gm Cream..g., 1 APPLIC TP DAILY for nail fungus, #1 TUB 0 Refills Prov:NIKKO BURK DO 08/09/18 Reported Medications Ibuprofen* (Ibuprofen*) 800 Mg Tablet, 800 MG PO TID TAKE 1 TABLET BY MOUTH THREE TIMES A DAY WITH FOOD 09/21/18 Aspirin (Aspirin) 81 Mg Chew, 81 MG PO DAILY CHEW 1 TABLET BY MOUTH EVERY DAY 09/21/18 Buspirone Hcl* (Buspirone Hcl*) 10 Mg Tab, 15 MG PO TID, TAB 03/21/18 Lisinopril* (Lisinopril*) 40 Mg Tablet, 40 MG PO DAILY, #30 TAB 10/26/17 Atorvastatin* (Atorvastatin*) 40 Mg Tablet, 40 MG PO QHS, #30 TAB 10/26/17 Metformin* (Glucophage*) 1,000 Mg Tablet, 1000 MG PO BID, #60 TAB 10/17/17 Allergies Allergies: Coded Allergies: latex (Unverified Allergy, Unknown, 09/21/18) PMhx/Soc History of Surgery: Yes (left hip, jaw) Anesthesia Reaction: No Hx Neurological Disorder: No Hx Respiratory Disorders: No Hx Cardiac Disorders: No Hx Psychiatric Problems: Yes (anxiety) Hx Miscellaneous Medical Probl: No (substance abuse) Hx Alcohol Use: No Hx Substance Use: Yes (amphetamine, marijuana) Hx Tobacco Use: Yes FmHx Family History: No diabetes Physical Exam Vitals Vital Signs Date Temp Pulse Resp B/P (MAP) Pulse Ox O2 O2 Flow FiO2 Time Delivery Rate 10/03/18 98.5 93 18 149/85 98 17:14 (106) Physical Exam Const: No acute distress Head: Atraumatic Eyes: Normal Conjunctiva ENT: Normal External Ears, Nose and Mouth. Neck: Full range of motion. No meningismus. Resp: Clear to auscultation bilaterally Cardio: Regular rate and rhythm, no murmurs Abd: Soft, non tender, non distended. Normal bowel sounds Skin: No petechiae or rashes Back: No midline or flank tenderness Ext: No cyanosis, or edema Neur: Awake and alert Psych: Normal Mood and Affect Procedures/MDM Patient is a 43-year-old male presents requesting a blood test. He does not need a blood test at this time. I told him to stop coming back for this complaint. He can return for any worsening symptoms. He has no fever. Departure Diagnosis: Primary Impression: Abnormal blood test Condition: Fair Patient Instructions: Back Pain (Acute Or Chronic) Additional Instructions: Call your primary care doctor TOMORROW for an appointment during the next 1 WEEK.Tell the legal administrative secretary that you were referred from this facility.See the doctor sooner or return here if your condition worsens before your appointment time. NATHANIEL MCKEON MD Oct 03, 2018 17:20
== END | disposition home or self-care (01) ==
LOC: E/R 16:57
DX: R79.89 Other specified abnormal findings of blood chemistry (principal); E11.9 Type 2 diabetes mellitus without complications; Z79.82 Long term (current) use of aspirin; Z79.84 Long term (current) use of oral hypoglycemic drugs

== ENCOUNTER 2018-10-06 03:56 | Emergency (ER) | payer SELFPAY ==
[~2018-10-06] VITALS: Ht 193 cm; Wt 88.1 kg
[~2018-10-06 03:56] MED LIST changes: +IBUP-1542 PO
[2018-10-06 03:57] VITALS: BP 174/98; PULSE 82; RESP 18; Ht 193 cm; Wt 88.1 kg
== END 2018-10-06 04:15 | disposition left against medical advice (07) ==
LOC: E/R 03:56
DX: Z53.21 Procedure and treatment not carried out due to patient leaving prior to being seen by health care provider (principal)

== ENCOUNTER 2018-10-10 05:08 | Emergency (ER) | payer OTHER ==
[~2018-10-10] VITALS: Ht 188 cm; Wt 87.6 kg
[~2018-10-10 05:08] MED LIST changes: +ACET1TAB40 PO; +IBUP800T48 PO; +NAPR-985 PO; +OMEP40CA6 PO; +TRAM50TA2 PO
[2018-10-10 05:09] VITALS: BP 166/97; PULSE 91; RESP 18; Ht 188 cm; Wt 87.6 kg
== END 2018-10-10 06:14 | disposition left against medical advice (07) ==
LOC: FTE 05:08
DX: Z53.21 Procedure and treatment not carried out due to patient leaving prior to being seen by health care provider (principal)

== ENCOUNTER 2018-10-10 14:00 | Emergency (ER) | payer OTHER ==
[~2018-10-10] VITALS: Ht 188 cm; Wt 86.0 kg
[~2018-10-10 14:00] MED LIST changes: -ACET1TAB40 PO; -IBUP800T48 PO; -NAPR-985 PO; -OMEP40CA6 PO; -TRAM50TA2 PO
[2018-10-10 14:03] VITALS: BP 162/92; PULSE 98; RESP 14; Ht 188 cm; Wt 86.0 kg
[2018-10-10] MEDS ORDERED: ACET1TAB40 PO (15:06)
[2018-10-10] MEDS ORDERED: TRAM50TA2 PO (15:09)
--- NOTE | 2018-10-10 15:15 | ERD ---
ER Documentation Chief Complaint Chief Complaint PT with dental pain X 3 days. HPI 43-year-old male presents with dental pain for last 2 days after an extraction his left lower molar. Denies fevers, vomiting, shortness of breath or chest pain. Patient states that he has a history of hypertension. He was taking ib uprofen without relief apparently. ROS All systems reviewed and are negative except as per history of present illness. Medications Home Meds Active Scripts Tramadol HCl (Tramadol HCl) 50 Mg Tablet, 50 MG PO Q4 PRN for PAIN, #10 TAB Prov:FATOU VALENTINO MD 10/10/18 Ibuprofen* (Motrin*) 600 Mg Tab, 600 MG PO Q6H PRN for PAIN AND OR ELEVATED TEMP, #30 TAB Prov:NATHANIEL MCKEON MD 10/03/18 Benzonatate* (Tessalon Perle*) 100 Mg Capsule, 100 MG PO Q8H PRN for COUGH, #14 CAP Prov:NIKKO MARLEY MD 09/30/18 Clotrimazole* (Clotrimazole* AF) 1% - 30 Gm Cream.gm., 1 APPLIC TOP BID for 7 Days, TUB Prov:AUSTIN MILLER PA-C 09/12/18 Ciclopirox Olamine (CICLODAN) 90 Gm Cream..g., 1 APPLIC TP DAILY for nail fungus, #1 TUB 0 Refills Prov:NIKKO BURK DO 08/09/18 Reported Medications Ibuprofen* (Ibuprofen*) 800 Mg Tablet, 800 MG PO TID TAKE 1 TABLET BY MOUTH THREE TIMES A DAY WITH FOOD 09/21/18 Aspirin (Aspirin) 81 Mg Chew, 81 MG PO DAILY CHEW 1 TABLET BY MOUTH EVERY DAY 09/21/18 Buspirone Hcl* (Buspirone Hcl*) 10 Mg Tab, 15 MG PO TID, TAB 03/21/18 Lisinopril* (Lisinopril*) 40 Mg Tablet, 40 MG PO DAILY, #30 TAB 10/26/17 Atorvastatin* (Atorvastatin*) 40 Mg Tablet, 40 MG PO QHS, #30 TAB 10/26/17 Metformin* (Glucophage*) 1,000 Mg Tablet, 1000 MG PO BID, #60 TAB 10/17/17 Discontinued Scripts Acetaminophen with Codeine (Acetaminophen-Cod #3 Tablet) 1 Each Tablet, 1 TAB PO Q6H PRN for PAIN, #7 TAB Prov:FATOU VALENTINO MD 10/10/18 Allergies Allergies: Coded Allergies: latex (Unverified Allergy, Unknown, 09/21/18) PMhx/Soc History of Surgery: Yes (left hip, jaw) Anesthesia Reaction: No Hx Neurological Disorder: No Hx Respiratory Disorders: No Hx Cardiac Disorders: No Hx Psychiatric Problems: Yes (anxiety) Hx Miscellaneous Medical Probl: No (substance abuse) Hx Alcohol Use: No Hx Substance Use: Yes (amphetamine, marijuana) Hx Tobacco Use: Yes Smoking Status: Unknown if ever smoked FmHx Family History: No diabetes, No coronary disease, No other Physical Exam Vitals Vital Signs Date Temp Pulse Resp B/P (MAP) Pulse Ox O2 O2 Flow FiO2 Time Delivery Rate 10/10/18 98.2 98 14 162/92 100 14:03 (115) Physical Exam Const: No acute distress Head: Atraumatic Eyes: Normal Conjunctiva ENT: Normal External Ears, Nose and Mouth. Healing left lower posterior molar extraction. No facial swelling, erythema. Airway patent. Neck: Full range of motion. No meningismus. Resp: Clear to auscultation bilaterally Cardio: Regular rate and rhythm, no murmurs Abd: Soft, non tender, non distended. Normal bowel sounds Skin: No petechiae or rashes Back: No midline or flank tenderness Ext: No cyanosis, or edema Neur: Awake and alert Psych: Normal Mood and Affect Results 24 hrs Current Medications Medications Dose Sig/[place] Start Time Status Last (Trade) Ordered Route PRN Stop Time Admin Dose Reason Admin 1 tab ONCE ONCE 10/10/18 10/10/18 Acetaminophen PO 15:30 15:12 / 10/10/18 15:31 Hydrocodone Bitart ([place] (5/325)) Procedures/MDM Cures review shows 1 narcotic prescription approximately 1 year ago. Patient is given [place] 5 mg by mouth for acute pain. Patient was given a short course of tramadol, recommend addition for primary care and dental follow-up. He has no s igns of sepsis, endocarditis, or facial cellulitis or abscess,, additional concerning signs or symptoms. The patient was stable with no new complaints during the ER course. Clinically, there is no current evidence to suggest meningitis, sepsis, acute abdomen, pneumonia, stroke, acute coronary syndrome, pulmonary embolism, aortic dissection or any other emergent condition appearing to require further evaluation or hospitalization. Patient counseled regarding my diagnostic impression and care plan. Prior to discharge all questions answered. Pt agrees with treatment plan and understands strict return precautions. Pt is instructed to follow up with primary care provider within 24- 48 hours. Precautionary instructions provided including instructions to return t o the ER if not improving or for any worsening or changing symptoms or concerns. Disclaimer: Inadvertent spelling and grammatical errors are likely due to EHR/dictation software use and do not reflect on the overall quality of patient care. Also, please note that the electronic time recorded on this note does not necessarily reflect the actual time of the patient encounter. Departure Diagnosis: Primary Impression: Tooth disease Condition: Stable Patient Instructions: Dental Pain Referrals: [facility] (PCP) Additional Instructions: Recheck for new worsening symptoms or with primary care doctor/ dentist FATOU VALENTINO MD Oct 10, 2018 15:15
[2018-10-10] MEDS ORDERED: HYDROCODONE/APAP (5/325) TAB PO ONE (15:30)
== END 2018-10-10 15:18 | disposition home or self-care (01) ==
LOC: FTE 14:00
DX: K08.9 Disorder of teeth and supporting structures, unspecified (principal); E11.9 Type 2 diabetes mellitus without complications; Z79.82 Long term (current) use of aspirin; Z79.84 Long term (current) use of oral hypoglycemic drugs; Z91.040 Latex allergy status
CPT/HCPCS: Z7502; Z7610; 99283

== ENCOUNTER 2018-10-12 16:38 | Emergency (ER) | payer OTHER ==
[~2018-10-12] VITALS: Ht 182.9 cm; Wt 88.7 kg
[~2018-10-12 16:38] MED LIST changes: +TRAM50TA2 PO
[2018-10-12 16:48] VITALS: BP 176/84; PULSE 84; RESP 18; Ht 182.9 cm; Wt 88.7 kg
[2018-10-12] MEDS ORDERED: CLOT30CR24 TOP (16:49)
--- NOTE | 2018-10-12 16:54 | ERD ---
ER Documentation Chief Complaint Chief Complaint bilateral foot pain since today HPI 43-year-old male presents with bilateral feet pain starting today. Patient has a history of multiple ER visits for variety of complaints. Denies any history of trauma. He was seen by me this week for dental pain which is resolved. He has a history of hypertension. ROS All systems reviewed and are negative except as per history of present illness. Medications Home Meds Active Scripts Clotrimazole* (Clotrimazole* AF) 1% - 30 Gm Cream.gm., 1 APPLIC TOP BID for 10 Days, TUB Prov:FATOU VALENTINO MD 10/12/18 Tramadol HCl (Tramadol HCl) 50 Mg Tablet, 50 MG PO Q4 PRN for PAIN, #10 TAB Prov:FATOU VALENTINO MD 10/10/18 Ibuprofen* (Motrin*) 600 Mg Tab, 600 MG PO Q6H PRN for PAIN AND OR ELEVATED TEMP, #30 TAB Prov:NATHANIEL MCKEON MD 10/03/18 Benzonatate* (Tessalon Perle*) 100 Mg Capsule, 100 MG PO Q8H PRN for COUGH, #14 CAP Prov:NIKKO MARLEY MD 09/30/18 Clotrimazole* (Clotrimazole* AF) 1% - 30 Gm Cream.gm., 1 APPLIC TOP BID for 7 Days, TUB Prov:AUSTIN MILLER PA-C 09/12/18 Ciclopirox Olamine (CICLODAN) 90 Gm Cream..g., 1 APPLIC TP DAILY for nail fungus, #1 TUB 0 Refills Prov:NIKKO BURK DO 08/09/18 Reported Medications Ibuprofen* (Ibuprofen*) 800 Mg Tablet, 800 MG PO TID TAKE 1 TABLET BY MOUTH THREE TIMES A DAY WITH FOOD 09/21/18 Aspirin (Aspirin) 81 Mg Chew, 81 MG PO DAILY CHEW 1 TABLET BY MOUTH EVERY DAY 09/21/18 Buspirone Hcl* (Buspirone Hcl*) 10 Mg Tab, 15 MG PO TID, TAB 03/21/18 Lisinopril* (Lisinopril*) 40 Mg Tablet, 40 MG PO DAILY, #30 TAB 10/26/17 Atorvastatin* (Atorvastatin*) 40 Mg Tablet, 40 MG PO QHS, #30 TAB 10/26/17 Metformin* (Glucophage*) 1,000 Mg Tablet, 1000 MG PO BID, #60 TAB 10/17/17 Discontinued Scripts Acetaminophen with Codeine (Acetaminophen-Cod #3 Tablet) 1 Each Tablet, 1 TAB PO Q6H PRN for PAIN, #7 TAB Prov:FATOU VALENTINO MD 10/10/18 Allergies Allergies: Coded Allergies: latex (Unverified Allergy, Unknown, 09/21/18) PMhx/Soc History of Surgery: Yes (left hip, jaw) Anesthesia Reaction: No Hx Neurological Disorder: No Hx Respiratory Disorders: No Hx Cardiac Disorders: No Hx Psychiatric Problems: Yes (anxiety) Hx Miscellaneous Medical Probl: No (substance abuse) Hx Alcohol Use: No Hx Substance Use: Yes (amphetamine, marijuana) Hx Tobacco Use: Yes FmHx Family History: No diabetes, No coronary disease, No other Physical Exam Vitals Vital Signs Date Temp Pulse Resp B/P (MAP) Pulse Ox O2 O2 Flow FiO2 Time Delivery Rate 10/12/18 97.5 84 18 176/84 100 16:48 (114) Physical Exam Const: No acute distress Head: Atraumatic Eyes: Normal Conjunctiva ENT: Normal External Ears, Nose and Mouth. Neck: Full range of motion. No meningismus. Resp: Clear to auscultation bilaterally Cardio: Regular rate and rhythm, no murmurs Abd: Soft, non tender, non distended. Normal bowel sounds Skin: No petechiae or rashes Back: No midline or flank tenderness Ext: No cyanosis, or edema. Calluses on the bilateral lateral aspects of the feet without erythema, deficits, deformities. Patient is noted to be ambulatory without deficits or weakness. Neur: Awake and alert Psych: Normal Mood and Affect Procedures/MDM Patient presents with signs and symptoms were appears to be calluses in the bilateral feet possibly tinea pedis and will be treated empirically with Lotrimin shows no signs of ischemia, signs or symptoms suggest fracture, dislocation, infection, concerning signs or symptoms. He will be discharged home with Lotrimin, primary care follow-up and return precautions. He is advised to continue treatment for hypertension with primary doctor \ The patient's blood pressure was elevated (>120/80) but appears stable without evidence of hypertension emergency or urgency. The patient was counseled about the risks of hypertension and urged to pursue outpatient monitoring and therapy within a week with their primary care physician. I discussed the findings with the patient. I advised the patient to follow-up with the primary physician in about 1-2 days, sooner if needed and return if any concern. Departure Diagnosis: Primary Impression: Foot pain Laterality: bilateral Qualified Codes: M79.671 - Pain in right foot; M79.672 - Pain in left foot Additional Impression: Hypertension Hypertension type: unspecified Qualified Codes: I10 - Essential (primary) hypertension Condition: Stable Patient Instructions: Dermatitis, Non-Specific, Athlete'S Foot Referrals: [facility] (PCP) Additional Instructions: Keep feet dry. Recheck for new worsening symptoms with primary care doctor. FATOU VALENTINO MD Oct 12, 2018 16:54
== END 2018-10-12 16:54 | disposition home or self-care (01) ==
LOC: E/R 16:38
DX: L84 Corns and callosities (principal); I10 Essential (primary) hypertension; Z79.82 Long term (current) use of aspirin; Z79.84 Long term (current) use of oral hypoglycemic drugs; Z87.891 Personal history of nicotine dependence; Z91.040 Latex allergy status
CPT/HCPCS: 99282

== ENCOUNTER 2018-10-16 10:23 | Emergency (ER) | payer SELFPAY ==
[~2018-10-16] VITALS: Ht 188 cm; Wt 90.2 kg
[2018-10-16 10:35] VITALS: BP 159/104; PULSE 76; RESP 20; Ht 188 cm; Wt 90.2 kg
== END 2018-10-16 12:00 | disposition left against medical advice (07) ==
LOC: FTE 10:23
DX: Z53.21 Procedure and treatment not carried out due to patient leaving prior to being seen by health care provider (principal)

== ENCOUNTER 2018-10-17 02:52 | Emergency (ER) | payer SELFPAY ==
[~2018-10-17] VITALS: Ht 188 cm; Wt 87.2 kg
[2018-10-17 02:57] VITALS: BP 151/87; PULSE 94; RESP 18; Ht 188 cm; Wt 87.2 kg
== END 2018-10-17 03:06 | disposition left against medical advice (07) ==
LOC: FTE 02:52
DX: Z53.21 Procedure and treatment not carried out due to patient leaving prior to being seen by health care provider (principal)

== ENCOUNTER 2018-10-20 11:29 | Emergency (ER) | payer OTHER ==
[~2018-10-20] VITALS: Ht 175.3 cm; Wt 89.7 kg
[~2018-10-20 11:29] MED LIST changes: +IBUP800T48 PO; +NAPR-985 PO; +OMEP40CA6 PO
[2018-10-20 11:38] VITALS: BP 144/74; PULSE 74; RESP 18; Ht 175.3 cm; Wt 89.7 kg
--- NOTE | 2018-10-20 13:06 | ERD ---
ER Documentation Chief Complaint Chief Complaint left leg pain has cut on bottom HPI Patient is a 43-year-old male with a history of schizophrenia who presents saying "I was told to go to check my heart". He did not go to his doctor as of yet and cannot tell me who told him to check his heart. He has frequent visits to our emergency department for multiple complaints. He is well-known to myself and to our staff. He is in no distress at this time. His primary doctor is at the [facility] [place]. ROS All systems reviewed and are negative except as per history of present illness. Medications Home Meds Active Scripts Clotrimazole* (Clotrimazole* AF) 1% - 30 Gm Cream.gm., 1 APPLIC TOP BID for 10 Days, TUB Prov:FATOU VALENTINO MD 10/12/18 Tramadol HCl (Tramadol HCl) 50 Mg Tablet, 50 MG PO Q4 PRN for PAIN, #10 TAB Prov:FATOU VALENTINO MD 10/10/18 Ibuprofen* (Motrin*) 600 Mg Tab, 600 MG PO Q6H PRN for PAIN AND OR ELEVATED TEMP, #30 TAB Prov:NATHANIEL MCKEON MD 10/03/18 Benzonatate* (Tessalon Perle*) 100 Mg Capsule, 100 MG PO Q8H PRN for COUGH, #14 CAP Prov:NIKKO MARLEY MD 09/30/18 Clotrimazole* (Clotrimazole* AF) 1% - 30 Gm Cream.gm., 1 APPLIC TOP BID for 7 Days, TUB Prov:AUSTIN MILLER PA-C 09/12/18 Ciclopirox Olamine (CICLODAN) 90 Gm Cream..g., 1 APPLIC TP DAILY for nail fungus, #1 TUB 0 Refills Prov:NIKKO BURK DO 08/09/18 Reported Medications Ibuprofen* (Ibuprofen*) 800 Mg Tablet, 800 MG PO TID TAKE 1 TABLET BY MOUTH THREE TIMES A DAY WITH FOOD 09/21/18 Aspirin (Aspirin) 81 Mg Chew, 81 MG PO DAILY CHEW 1 TABLET BY MOUTH EVERY DAY 09/21/18 Buspirone Hcl* (Buspirone Hcl*) 10 Mg Tab, 15 MG PO TID, TAB 03/21/18 Lisinopril* (Lisinopril*) 40 Mg Tablet, 40 MG PO DAILY, #30 TAB 10/26/17 Atorvastatin* (Atorvastatin*) 40 Mg Tablet, 40 MG PO QHS, #30 TAB 10/26/17 Metformin* (Glucophage*) 1,000 Mg Tablet, 1000 MG PO BID, #60 TAB 10/17/17 Allergies Allergies: Coded Allergies: latex (Unverified Allergy, Unknown, 09/21/18) PMhx/Soc History of Surgery: Yes (left hip, jaw) Anesthesia Reaction: No Hx Neurological Disorder: No Hx Respiratory Disorders: No Hx Cardiac Disorders: No Hx Psychiatric Problems: Yes (anxiety) Hx Miscellaneous Medical Probl: No (substance abuse) Hx Alcohol Use: No Hx Substance Use: Yes (amphetamine, marijuana) Hx Tobacco Use: Yes Smoking Status: Current every day smoker FmHx Family History: No diabetes Physical Exam Vitals Vital Signs Date Temp Pulse Resp B/P (MAP) Pulse Ox O2 O2 Flow FiO2 Time Delivery Rate 10/20/18 97.9 74 18 144/74 98 11:38 (97) Physical Exam Const: No acute distress Head: Atraumatic Eyes: Normal Conjunctiva ENT: Normal External Ears, Nose and Mouth. Neck: Full range of motion. No meningismus. Resp: Clear to auscultation bilaterally Cardio: Regular rate and rhythm, no murmurs Abd: Soft, non tender, non distended. Normal bowel sounds Skin: No petechiae or rashes Back: No midline or flank tenderness Ext: No cyanosis, or edema Neur: Awake and alert Procedures/MDM Patient is a 43-year-old male who is complaining of left leg pain and requesting that his heart be checked. He does not need further work-up at this time. I do not believe he has serious cardiac etiology at this time. He will be discharged will need to follow-up with his primary doctor at the [facility] [place] within 1 week. He can return for any worsening symptoms. Departure Diagnosis: Primary Impression: Pain of left leg Condition: Fair Patient Instructions: Leg Spasm Referrals: [facility] (PCP) Additional Instructions: Call your primary care doctor TOMORROW for an appointment during the next 1 WEEK.Tell the social secretary that you were referred from this facility.See the doctor sooner or return here if your condition worsens before your appointment time. NATHANIEL MCKEON MD Oct 20, 2018 13:06
== END 2018-10-20 12:11 | disposition home or self-care (01) ==
LOC: E/R 11:29
DX: M79.605 Pain in left leg (principal); F17.210 Nicotine dependence, cigarettes, uncomplicated; E11.9 Type 2 diabetes mellitus without complications; Z79.4 Long term (current) use of insulin; Z79.82 Long term (current) use of aspirin; Z91.040 Latex allergy status
CPT/HCPCS: 99282

== ENCOUNTER 2018-10-21 11:05 | Emergency (ER) | payer OTHER ==
[~2018-10-21] VITALS: Ht 182.9 cm; Wt 89.7 kg
[2018-10-21 11:06] VITALS: BP 164/94; PULSE 76; RESP 20; Ht 182.9 cm; Wt 89.7 kg
--- NOTE | 2018-10-21 13:59 | ERD ---
ER Documentation Chief Complaint Chief Complaint left hip pain HPI 43-year-old male presenting with pain to the left hip. Patient states he had surgery to 3 months ago when he fell. His pain is worse with movement. He has not taken medications for symptoms. Patient is diabetic. NKDA. Surgical history hip surgery. Social history smokes cigarettes and marijuana. Drug use denies ROS All systems reviewed and are negative except as per history of present illness. Medications Home Meds Active Scripts Naproxen* (Naprosyn*) 500 Mg Tablet, 500 MG PO BID PRN for PAIN AND/OR INFLAMMATION, #30 TAB Prov:AUSTIN MILLER PA-C 10/21/18 Clotrimazole* (Clotrimazole* AF) 1% - 30 Gm Cream.gm., 1 APPLIC TOP BID for 10 Days, TUB Prov:FATOU VALENTINO MD 10/12/18 Tramadol HCl (Tramadol HCl) 50 Mg Tablet, 50 MG PO Q4 PRN for PAIN, #10 TAB Prov:FATOU VALENTINO MD 10/10/18 Ibuprofen* (Motrin*) 600 Mg Tab, 600 MG PO Q6H PRN for PAIN AND OR ELEVATED TEMP, #30 TAB Prov:NATHANIEL MCKEON MD 10/03/18 Benzonatate* (Tessalon Perle*) 100 Mg Capsule, 100 MG PO Q8H PRN for COUGH, #14 CAP Prov:NIKKO MARLEY MD 09/30/18 Clotrimazole* (Clotrimazole* AF) 1% - 30 Gm Cream.gm., 1 APPLIC TOP BID for 7 Days, TUB Prov:AUSTIN MILLER PA-C 09/12/18 Ciclopirox Olamine (CICLODAN) 90 Gm Cream..g., 1 APPLIC TP DAILY for nail fungus, #1 TUB 0 Refills Prov:NIKKO BURK DO 08/09/18 Reported Medications Ibuprofen* (Ibuprofen*) 800 Mg Tablet, 800 MG PO TID TAKE 1 TABLET BY MOUTH THREE TIMES A DAY WITH FOOD 09/21/18 Aspirin (Aspirin) 81 Mg Chew, 81 MG PO DAILY CHEW 1 TABLET BY MOUTH EVERY DAY 09/21/18 Buspirone Hcl* (Buspirone Hcl*) 10 Mg Tab, 15 MG PO TID, TAB 03/21/18 Lisinopril* (Lisinopril*) 40 Mg Tablet, 40 MG PO DAILY, #30 TAB 10/26/17 Atorvastatin* (Atorvastatin*) 40 Mg Tablet, 40 MG PO QHS, #30 TAB 10/26/17 Metformin* (Glucophage*) 1,000 Mg Tablet, 1000 MG PO BID, #60 TAB 10/17/17 Allergies Allergies: Coded Allergies: latex (Unverified Allergy, Unknown, 10/21/18) PMhx/Soc History of Surgery: Yes (left hip, jaw) Anesthesia Reaction: No Hx Neurological Disorder: No Hx Respiratory Disorders: No Hx Cardiac Disorders: No Hx Psychiatric Problems: Yes (anxiety) Hx Miscellaneous Medical Probl: No (substance abuse) Hx Alcohol Use: No Hx Substance Use: Yes (amphetamine, marijuana) Hx Tobacco Use: Yes Smoking Status: Current every day smoker FmHx Family History: No diabetes, No coronary disease, No other Physical Exam Vitals Vital Signs Date Temp Pulse Resp B/P (MAP) Pulse Ox O2 O2 Flow FiO2 Time Delivery Rate 10/21/18 98.3 76 20 164/94 98 11:06 (117) Physical Exam GENERAL: The patient is well-appearing, well-nourished, in no acute distress CHEST: Clear to auscultation bilaterally. There are no rales, wheezes or rhonchi. HEART: Regular rate and rhythm. No murmurs, clicks, rubs or gallops. EXTREMITIES: Tender to palpation to the left hip with normal internal and external rotation. Ambulation with a mild limp. NEUROLOGIC: Alert and oriented. Cranial nerves II through XII intact. Motor strength in all 4 extremities with 5 out of 5 strength. Sensation grossly intact. SKIN: There is no apparent rash or petechiae. The skin is warm and dry. Procedures/MDM DIAGNOSTIC IMAGING REPORT Patient: JOANNE WALKER : 1975 Age: 43 Sex: M MR #: [id number] DOS: 10/21/18 1126 Ordering MD: HARISH MILLER PA-C Location: [facility] Room/Bed: PROCEDURE: XR Left Hip CLINICAL INDICATION: Hip pain TECHNIQUE: AP and frog-leg views were submitted. COMPARISON: Comparison to the previous AP pelvis and left hip study done 04/09/2018 FINDINGS: Osseous structures: Thick a nail is again evident within the proximal left femur internally fixing the previously noted nondisplaced intertrochanteric fracture which is no longer clearly identified suggesting interval healing. A fragment is again seen superior to the greater trochanter at the site where the internal fixation hardware protrudes. Joint spaces: The hip joint is well maintained there is no distension of the joint capsule. Soft tissues: The superficial brenna have been removed. IMPRESSION: 1. Healed internally fixed intertrochanteric fracture involving the proximal left femur. 2. Small avulsion,/myositis ossificans seen superior to the greater trochanter were of the fixation hardware slightly protrudes. 3. The superficial brenna have been removed. MDM: 33-year-old male presenting with left hip pain. I have low suspicion for acute fracture dislocation. I have low suspicion for tendon or ligament rupture. I have low suspicion for neuro deficit. Patient is discharged with strict ER precautions and supportive medications. Patient is told symptoms change or worsen to return immediately to the ER. All questions answered at discharge Departure Diagnosis: Primary Impression: Hip pain Condition: Stable Patient Instructions: How Your Hip Works Referrals: [facility] Additional Instructions: FOLLOW UP WITH YOUR PRIMARY CARE PHYSICIAN TOMORROW.Return to this facility if you are not improving as expected. AUSTIN MILLER PA-C Oct 21, 2018 13:59
== END 2018-10-21 13:10 | disposition home or self-care (01) ==
LOC: FTE 11:05
DX: M25.552 Pain in left hip (principal); F17.210 Nicotine dependence, cigarettes, uncomplicated; Z79.82 Long term (current) use of aspirin; Z79.84 Long term (current) use of oral hypoglycemic drugs; Z91.040 Latex allergy status
CPT/HCPCS: 73510; Z7502; 73502

== ENCOUNTER 2018-10-22 04:01 | Emergency (ER) | payer OTHER ==
[~2018-10-22] VITALS: Ht 172.7 cm; Wt 68.0 kg
[2018-10-22 04:04] VITALS: BP 149/81; PULSE 65; RESP 19; Ht 172.7 cm; Wt 68.0 kg
[2018-10-22] MEDS ORDERED: ONDANSETRON (ODT) 4 MG TAB ODT STA (04:41)
--- NOTE | 2018-10-22 04:41 | ERD ---
ER Documentation Chief Complaint Chief Complaint bib self, cc: left side hip pain, no fall no trauma HPI This is a 43-year-old male presents emergency department with complaints of left hip pain. Stated that he has this for years. Patient is asking for pain medicine. Denies headache, head injury, loss of consciousness, dizziness, neck pain, neck stiffness, throat pain, difficulty swallowing, difficulty breathing lying flat, shoulder pain, chest pain, back pain, abdominal pain, nausea, vomiting, constipation, diarrhea, urinary symptoms, loss of bowel and bladder control, difficulty walking due to pain, numbness or tingling sensation, calf pain, recent travel, recent major surgery in the last 3 weeks, calf pain, recent long travel, recent exposure to any illness, recent antibiotic use in the last 3 months, fever, chills, seizures. Past medical history: Denies. Surgical history: Denies. Social: Denies smoking, use of alcoholic beverages, use of illegal drugs. ROS All systems reviewed and are negative except as per history of present illness. Medications Home Meds Active Scripts Ibuprofen* (Motrin*) 600 Mg Tab, 600 MG PO Q6H PRN for PAIN AND/OR INFLAMMATION, #30 TAB Prov:DALE REBOLLEDO MD 10/26/18 Omeprazole* (Omeprazole*) 40 Mg Capsule., 40 MG PO DAILY, #30 CAP Prov:LUCIA GURROLA 10/22/18 Ibuprofen* (Motrin*) 800 Mg Tab, 800 MG PO Q8 PRN for PAIN AND OR ELEVATED TEMP, #30 TAB Prov:LUCIA GURROLA 10/22/18 Naproxen* (Naprosyn*) 500 Mg Tablet, 500 MG PO BID PRN for PAIN AND/OR INFLAMMATION, #30 TAB Prov:AUSTIN MILLER PA-C 10/21/18 Clotrimazole* (Clotrimazole* AF) 1% - 30 Gm Cream.gm., 1 APPLIC TOP BID for 10 Days, TUB Prov:FATOU VALENTINO MD 10/12/18 Tramadol HCl (Tramadol HCl) 50 Mg Tablet, 50 MG PO Q4 PRN for PAIN, #10 TAB Prov:FATOU VALENTINO MD 10/10/18 Ibuprofen* (Motrin*) 600 Mg Tab, 600 MG PO Q6H PRN for PAIN AND OR ELEVATED TEMP, #30 TAB Prov:NATHANIEL MCKEON MD 10/03/18 Benzonatate* (Tessalon Perle*) 100 Mg Capsule, 100 MG PO Q8H PRN for COUGH, #14 CAP Prov:NIKKO MARLEY MD 09/30/18 Clotrimazole* (Clotrimazole* AF) 1% - 30 Gm Cream.gm., 1 APPLIC TOP BID for 7 Days, TUB Prov:AUSTIN MILLER PA-C 09/12/18 Ciclopirox Olamine (CICLODAN) 90 Gm Cream..g., 1 APPLIC TP DAILY for nail fungus, #1 TUB 0 Refills Prov:NIKKO BURK DO 08/09/18 Reported Medications Ibuprofen* (Ibuprofen*) 800 Mg Tablet, 800 MG PO TID TAKE 1 TABLET BY MOUTH THREE TIMES A DAY WITH FOOD 09/21/18 Aspirin (Aspirin) 81 Mg Chew, 81 MG PO DAILY CHEW 1 TABLET BY MOUTH EVERY DAY 09/21/18 Buspirone Hcl* (Buspirone Hcl*) 10 Mg Tab, 15 MG PO TID, TAB 03/21/18 Lisinopril* (Lisinopril*) 40 Mg Tablet, 40 MG PO DAILY, #30 TAB 10/26/17 Atorvastatin* (Atorvastatin*) 40 Mg Tablet, 40 MG PO QHS, #30 TAB 10/26/17 Metformin* (Glucophage*) 1,000 Mg Tablet, 1000 MG PO BID, #60 TAB 10/17/17 Allergies Allergies: Coded Allergies: latex (Unverified Allergy, Unknown, 10/21/18) PMhx/Soc History of Surgery: Yes (left hip, jaw) Anesthesia Reaction: No Hx Neurological Disorder: No Hx Respiratory Disorders: No Hx Cardiac Disorders: No Hx Psychiatric Problems: Yes (anxiety) Hx Miscellaneous Medical Probl: No (substance abuse) Hx Alcohol Use: Yes Hx Substance Use: Yes (amphetamine, marijuana) Hx Tobacco Use: Yes Smoking Status: Current every day smoker Physical Exam Vitals Physical Exam Const: No acute distress Head: Atraumatic Eyes: Normal Conjunctiva ENT: Normal External Ears, Nose and Mouth. Neck: Full range of motion. No meningismus. Resp: Clear to auscultation bilaterally Cardio: Regular rate and rhythm, no murmurs Abd: Soft, non tender, non distended. Normal bowel sounds Skin: No petechiae or rashes Back: No midline or flank tenderness. C-spine/T-spine/L-spine are midline with good and full range of motion and has no swelling/deformity/bulging/point of tenderness/midline tenderness. No saddle anesthesia. Ext: No cyanosis, or edema. Positive straight leg test bilaterally. Bilateral hips are stable and unremarkable. No neurovascular deficits. Neur: Awake and alert. No neurological deficits. Psych: Normal Mood and Affect Results 24 hrs Current Medications Medications Dose Sig/[place] Start Time Status Last (Trade) Ordered Route PRN Stop Time Admin Dose Reason Admin 1 tab ONCE ONCE 10/22/18 DC 10/22/18 Acetaminophen PO 05:00 10/22/18 05:05 / 05:01 Hydrocodone Bitart (Williams (10/325)) Ondansetron 4 mg ONCE STAT 10/22/18 DC 10/22/18 HCl (Zofran ODT 04:41 10/22/18 05:04 Odt) 04:42 Procedures/MDM Diagnostic tests: Clinical exam. Treatment: Williams p.o. Re-evaluation: No saddle anesthesia. No neurological deficits. Ambulatory with steady gait. Differential diagnosis I have low suspicion for cauda equina syndrome, fractures. Final diagnosis: Chronic pain. Prescription: Motrin. Omeprazole. Follow-up with PCP in the next 24-48 hours. Follow-up with orthopedic physical therapist in the next 24 to 48 hours. Come back here in the emergency department for any new symptoms or any worsening symptoms. All questions and concerns were answered. Patient and family members verbalized understanding and agreed with plan of care. Hemodynamically stable on discharge. Departure Diagnosis: Primary Impression: Hip pain Additional Impression: Chronic hip pain Condition: Stable Additional Instructions: Follow-up with PCP in the next 24-48 hours. Follow-up with orthopedic physical therapist in the next 24 to 48 hours. Come back here in the emergency department for any new symptoms or any worsening symptoms. LUCIA GURROLA Oct 22, 2018 04:41
[2018-10-22] MEDS ORDERED: HYDROCODONE/APAP (10/325) TAB PO ONE (05:00)
== END 2018-10-22 05:07 | disposition home or self-care (01) ==
LOC: FTE 04:01
DX: M25.552 Pain in left hip (principal); G89.29 Other chronic pain; F17.210 Nicotine dependence, cigarettes, uncomplicated; Z79.82 Long term (current) use of aspirin; Z79.84 Long term (current) use of oral hypoglycemic drugs
CPT/HCPCS: Z7502; Z7610; 99283

== ENCOUNTER 2018-10-26 09:19 | Emergency (ER) | payer OTHER ==
[~2018-10-26] VITALS: Ht 182.9 cm; Wt 90.0 kg
[2018-10-26 09:22] VITALS: BP 156/86; PULSE 69; RESP 20; Ht 182.9 cm; Wt 90.0 kg
--- NOTE | 2018-10-26 09:55 | ERD ---
ER Documentation Chief Complaint Chief Complaint LEFT LEG PAIN HPI This is a 43-year-old male with a past medical history of hypertension, hyperlipidemia, diabetes, GERD, chronic left hip pain who is presenting with a reported exacerbated episode of left hip pain. The patient is requesting evaluation for pain control. The patient is ambulatory without difficulty. He is in no distress. The patient's history was obtained from the triage note and the triage nurse. I did visualize the patient and was able to perform an observational exam, but the patient eloped prior to coming into the main emergency department. The patient left after he charged his phone. History and physical is limited secondary to patient elopement. ROS Review of systems limited secondary to patient elopement. Medications Home Meds Active Scripts Omeprazole* (Omeprazole*) 40 Mg Capsule.dr, 40 MG PO DAILY, #30 CAP Prov:LUCIA GURROLA 10/22/18 Ibuprofen* (Motrin*) 800 Mg Tab, 800 MG PO Q8 PRN for PAIN AND OR ELEVATED TEMP, #30 TAB Prov:LUCIA GURROLA 10/22/18 Naproxen* (Naprosyn*) 500 Mg Tablet, 500 MG PO BID PRN for PAIN AND/OR INFLAMMATION, #30 TAB Prov:AUSTIN MILLER PA-C 10/21/18 Clotrimazole* (Clotrimazole* AF) 1% - 30 Gm Cream.gm., 1 APPLIC TOP BID for 10 Days, TUB Prov:FATOU VALENTINO MD 10/12/18 Tramadol HCl (Tramadol HCl) 50 Mg Tablet, 50 MG PO Q4 PRN for PAIN, #10 TAB Prov:FATOU VALENTINO MD 10/10/18 Ibuprofen* (Motrin*) 600 Mg Tab, 600 MG PO Q6H PRN for PAIN AND OR ELEVATED TEMP, #30 TAB Prov:NATHANIEL MCKEON MD 10/03/18 Benzonatate* (Tessalon Perle*) 100 Mg Capsule, 100 MG PO Q8H PRN for COUGH, #14 CAP Prov:NIKKO MARLEY MD 09/30/18 Clotrimazole* (Clotrimazole* AF) 1% - 30 Gm Cream.gm., 1 APPLIC TOP BID for 7 Days, TUB Prov:AUSTIN MILLER PA-C 09/12/18 Ciclopirox Olamine (CICLODAN) 90 Gm Cream..g., 1 APPLIC TP DAILY for nail fungus, #1 TUB 0 Refills Prov:NIKKO BURK DO 08/09/18 Reported Medications Ibuprofen* (Ibuprofen*) 800 Mg Tablet, 800 MG PO TID TAKE 1 TABLET BY MOUTH THREE TIMES A DAY WITH FOOD 09/21/18 Aspirin (Aspirin) 81 Mg Chew, 81 MG PO DAILY CHEW 1 TABLET BY MOUTH EVERY DAY 09/21/18 Buspirone Hcl* (Buspirone Hcl*) 10 Mg Tab, 15 MG PO TID, TAB 03/21/18 Lisinopril* (Lisinopril*) 40 Mg Tablet, 40 MG PO DAILY, #30 TAB 10/26/17 Atorvastatin* (Atorvastatin*) 40 Mg Tablet, 40 MG PO QHS, #30 TAB 10/26/17 Metformin* (Glucophage*) 1,000 Mg Tablet, 1000 MG PO BID, #60 TAB 10/17/17 Allergies Allergies: Coded Allergies: latex (Unverified Allergy, Unknown, 10/21/18) PMhx/Soc History of Surgery: Yes (left hip, jaw) Anesthesia Reaction: No Hx Neurological Disorder: No Hx Respiratory Disorders: No Hx Cardiac Disorders: No Hx Psychiatric Problems: Yes (anxiety) Hx Miscellaneous Medical Probl: No (substance abuse) Hx Alcohol Use: Yes Hx Substance Use: Yes (amphetamine, marijuana) Hx Tobacco Use: Yes FmHx Patient did not provide a family history. Physical Exam Vitals Vital Signs Date Temp Pulse Resp B/P (MAP) Pulse Ox O2 O2 Flow FiO2 Time Delivery Rate 10/26/18 97.8 69 20 156/86 100 09:22 (109) Physical Exam Observational exam performed. The patient eloped prior to my ability to complete a full assessment. Objective: Vital signs reviewed Const: No apparent distress, well-developed, well-nourished Head: Normocephalic, Atraumatic ENT: Normal External Ears, Nose and Mouth. Neck: No meningismus. Resp: Symmetric chest wall sheehan, no audible wheezes Cardio: Regular rate on initial vital sign assessment Abd: Non distended Ext: Mild antalgic gait. Ambulatory. Neur: Awake and alert. Moves all extremities spontaneously. Procedures/MDM MDM The patient presents for exacerbated chronic left hip pain and is requesting m edication for pain. Unfortunately, the patient eloped Prior to my full assessment. Previous medical records were reviewed. I was able to observe the patient as well. The patient's symptoms have been long-standing and well- documented. I have low suspicion for a septic joint. I do not suspect an infectious etiology of symptoms. He did not report trauma or injury to the nursing staff. The patient was ambulatory without difficulty. I do not suspect fracture or dislocation. The patient eloped immediately after charging his phone in the triage area. There is also suspicion for secondary gain. The patient needs to follow-up with his primary care physician for chronic pain management. I do not think the patient requires emergent treatment in the emergency department today. ELOPEMENT The patient presents for exacerbated chronic pain. I have decreased suspicion for an emergent etiology of symptoms. I do anticipate that the patient would have been stable for discharge. Unfortunately, I was only able to do an observational exam as he eloped prior to coming into the emergency department main area. The patient may return to the emergency department at any time for any concerns. DISCLAIMER Inadvertent spelling and grammatical errors are likely due to EHR/dictation software use and do not reflect on the overall quality of patient care. Note that the electronic time recorded on this note does not necessarily reflect the actual time of the patient encounter. Departure Diagnosis: Primary Impression: Chronic left hip pain Additional Impression: Eloped from emergency department Condition: Stable Patient Instructions: The Cycle of Chronic Pain DALE REBOLLEDO MD Oct 26, 2018 09:55
[2018-10-26] MEDS ORDERED: IBUPROFEN 600 MG TAB PO ONE (10:30)
== END 2018-10-26 12:00 | disposition left against medical advice (07) ==
LOC: E/R 09:19
DX: M25.552 Pain in left hip (principal); G89.29 Other chronic pain; I10 Essential (primary) hypertension; E11.9 Type 2 diabetes mellitus without complications; Z79.82 Long term (current) use of aspirin; Z87.891 Personal history of nicotine dependence; Z91.040 Latex allergy status; Z79.84 Long term (current) use of oral hypoglycemic drugs
CPT/HCPCS: 99282

== ENCOUNTER 2018-10-26 22:17 | Emergency (ER) | payer OTHER ==
[~2018-10-26] VITALS: Ht 188 cm; Wt 88.7 kg
[2018-10-26 22:20] VITALS: BP 174/94; PULSE 79; RESP 20; Ht 188 cm; Wt 88.7 kg
--- NOTE | 2018-10-26 22:32 | ERD ---
ER Documentation Chief Complaint Chief Complaint MOUTH PAIN; STATES "HAD WORK DONE" HPI Patient is a 43-year-old male who complains of mouth pain. He is well-known to myself and to our staff for frequent visits for various complaints. He has had no treatment as of today. The pain started today. ROS All systems reviewed and are negative except as per history of present illness. Medications Home Meds Active Scripts Ibuprofen* (Motrin*) 600 Mg Tab, 600 MG PO Q6H PRN for PAIN AND/OR INFLAMMATION, #30 TAB Prov:DALE REBOLLEDO MD 10/26/18 Omeprazole* (Omeprazole*) 40 Mg Capsule.dr, 40 MG PO DAILY, #30 CAP Prov:PASILABANLUCIA F 10/22/18 Ibuprofen* (Motrin*) 800 Mg Tab, 800 MG PO Q8 PRN for PAIN AND OR ELEVATED TEMP, #30 TAB Prov:LUCIA GURROLA F 10/22/18 Naproxen* (Naprosyn*) 500 Mg Tablet, 500 MG PO BID PRN for PAIN AND/OR INFLA MMATION, #30 TAB Prov:AUSTIN MILLER PA-C 10/21/18 Clotrimazole* (Clotrimazole* AF) 1% - 30 Gm Cream.gm., 1 APPLIC TOP BID for 10 Days, TUB Prov:FAOTU VALENTINO MD 10/12/18 Tramadol HCl (Tramadol HCl) 50 Mg Tablet, 50 MG PO Q4 PRN for PAIN, #10 TAB Prov:FATOU VALENTINO MD 10/10/18 Ibuprofen* (Motrin*) 600 Mg Tab, 600 MG PO Q6H PRN for PAIN AND OR ELEVATED TEMP, #30 TAB Prov:NATHANIEL MCKEON MD 10/03/18 Benzonatate* (Tessalon Perle*) 100 Mg Capsule, 100 MG PO Q8H PRN for COUGH, #14 CAP Prov:NIKKO MARLEY MD 09/30/18 Clotrimazole* (Clotrimazole* AF) 1% - 30 Gm Cream.gm., 1 APPLIC TOP BID for 7 Days, TUB Prov:AUSTIN MILLER PA-C 09/12/18 Ciclopirox Olamine (CICLODAN) 90 Gm Cream..g., 1 APPLIC TP DAILY for nail fungus, #1 TUB 0 Refills Prov:NIKKO BURK DO 08/09/18 Reported Medications Ibuprofen* (Ibuprofen*) 800 Mg Tablet, 800 MG PO TID TAKE 1 TABLET BY MOUTH THREE TIMES A DAY WITH FOOD 09/21/18 Aspirin (Aspirin) 81 Mg Chew, 81 MG PO DAILY CHEW 1 TABLET BY MOUTH EVERY DAY 09/21/18 Buspirone Hcl* (Buspirone Hcl*) 10 Mg Tab, 15 MG PO TID, TAB 03/21/18 Lisinopril* (Lisinopril*) 40 Mg Tablet, 40 MG PO DAILY, #30 TAB 10/26/17 Atorvastatin* (Atorvastatin*) 40 Mg Tablet, 40 MG PO QHS, #30 TAB 10/26/17 Metformin* (Glucophage*) 1,000 Mg Tablet, 1000 MG PO BID, #60 TAB 10/17/17 Allergies Allergies: Coded Allergies: latex (Unverified Allergy, Unknown, 10/21/18) PMhx/Soc History of Surgery: Yes (left hip, jaw) Anesthesia Reaction: No Hx Neurological Disorder: No Hx Respiratory Disorders: No Hx Cardiac Disorders: No Hx Psychiatric Problems: Yes (anxiety) Hx Miscellaneous Medical Probl: No (substance abuse) Hx Alcohol Use: Yes Hx Substance Use: Yes (amphetamine, marijuana) Hx Tobacco Use: Yes FmHx Family History: No diabetes Physical Exam Vitals Vital Signs Date Temp Pulse Resp B/P (MAP) Pulse Ox O2 O2 Flow FiO2 Time Delivery Rate 10/26/18 97.9 79 20 174/94 99 22:20 (120) Physical Exam Const: No acute distress Head: Atraumatic Eyes: Normal Conjunctiva ENT: Normal External Ears, Nose and Mouth. Neck: Full range of motion. No meningismus. Resp: Clear to auscultation bilaterally Cardio: Regular rate and rhythm, no murmurs Abd: Soft, non tender, non distended. Normal bowel sounds Skin: No petechiae or rashes Back: No midline or flank tenderness Ext: No cyanosis, or edema Neur: Awake Procedures/MDM Patient is a 43-year-old male presents with mouth pain. I do not believe he requires further work-up or admission in the hospital. The patient will be discharged. He can follow-up with the local clinics within 1 week. Departure Diagnosis: Primary Impression: Pain in mouth Condition: Fair Patient Instructions: Pain, Uncertain Cause (Acute) Referrals: [facility] YOU HAVE RECEIVED A MEDICAL SCREENING EXAM AND THE RESULTS INDICATE THAT YOU DO NOT HAVE A CONDITION THAT REQUIRES URGENT TREATMENT IN THE EMERGENCY DEPARTMENT. FURTHER EVALUATION AND TREATMENT OF YOUR CONDITION CAN WAIT UNTIL YOU ARE SEEN IN YOUR DOCTORS OFFICE WITHIN THE NEXT 1-2 DAYS. IT IS YOUR RESPONSIBILITY TO MAKE AN APPOINTMENT FOR FOLOW-UP CARE. IF YOU HAVE A PRIMARY DOCTOR --you should call your primary doctor and schedule an appointment IF YOU DO NOT HAVE A PRIMARY DOCTOR YOU CAN CALL OUR PHYSICIAN REFERRAL HOTLINE AT IF YOU CAN NOT AFFORD TO SEE A PHYSICIAN YOU CAN CHOSE FROM THE FOLLOWING [facility] [address] [facility]. [facility] [address] [facility] [facility] [address] [facility] [address] [facility]. [facility] [address] [facility] [facility] [address] Additional Instructions: Call your primary care doctor TOMORROW for an appointment during the next 1 WEEK.Tell the manager french that you were referred from this facility.See the doctor sooner or return here if your condition worsens before your appointment time. NATHANIEL MCKEON MD Oct 26, 2018 22:32
== END 2018-10-26 22:30 | disposition home or self-care (01) ==
LOC: E/R 22:17
DX: K13.79 Other lesions of oral mucosa (principal); Z79.82 Long term (current) use of aspirin; Z87.891 Personal history of nicotine dependence; Z79.84 Long term (current) use of oral hypoglycemic drugs
CPT/HCPCS: 99282

== ENCOUNTER 2018-10-29 00:57 | Emergency (ER) | payer SELFPAY ==
[~2018-10-29] VITALS: Ht 190.5 cm; Wt 87.4 kg
[2018-10-29 01:01] VITALS: BP 177/94; PULSE 97; RESP 24; Ht 190.5 cm; Wt 87.4 kg
== END 2018-10-29 02:00 | disposition left against medical advice (07) ==
LOC: E/R 00:57
DX: Z53.21 Procedure and treatment not carried out due to patient leaving prior to being seen by health care provider (principal)

== ENCOUNTER 2018-11-01 12:09 | Emergency (ER) | payer OTHER ==
[~2018-11-01] VITALS: Ht 185.4 cm; Wt 92.7 kg
[2018-11-01 12:15] VITALS: BP 152/87; PULSE 78; RESP 16; Ht 185.4 cm; Wt 92.7 kg
--- NOTE | 2018-11-01 12:56 | ERD ---
ER Documentation Chief Complaint Chief Complaint wounds to both feet HPI This is a 43-year-old male with a past medical history of hypertension, hyperlipidemia, diabetes, GERD, chronic left hip pain, homelessness who is presenting with a reported exacerbated bilateral feet pain. The patient reports that his feet feel raw secondary to walking a lot. The patient is requesting evaluation for pain control. The patient is ambulatory without difficulty. He is in no distress. The patient has no other complaints at this time. The patient denies feeling sick recently. The patient denies fever or chills. The patient has had no headache or vision changes. The patient does not endorse neck or back pain. The patient denies lightheadedness or dizziness. The patient has had no chest pain or trouble breathing. The patient denies nausea or vomiting. The patient denies abdominal pain. The patient denies changes to bowel movements or urination. The patient has had no focal deficits. The patient has had no weakness or numbness or tingling to the face or extremities. ROS All systems reviewed and are negative except as per history of present illness. Medications Home Meds Active Scripts Ibuprofen* (Motrin*) 600 Mg Tab, 600 MG PO Q6H PRN for PAIN AND/OR INFLAMMATION, #30 TAB Prov:DALE REBOLLEDO MD 10/26/18 Omeprazole* (Omeprazole*) 40 Mg Capsule.dr, 40 MG PO DAILY, #30 CAP Prov:LUCIA GURROLA 10/22/18 Ibuprofen* (Motrin*) 800 Mg Tab, 800 MG PO Q8 PRN for PAIN AND OR ELEVATED TEMP, #30 TAB Prov:LUCIA GURROLA 10/22/18 Naproxen* (Naprosyn*) 500 Mg Tablet, 500 MG PO BID PRN for PAIN AND/OR INFLAMMATION, #30 TAB Prov:AUSTIN MILLER PA-C 10/21/18 Clotrimazole* (Clotrimazole* AF) 1% - 30 Gm Cream.gm., 1 APPLIC TOP BID for 10 Days, TUB Prov:FATOU VALENTINO MD 10/12/18 Tramadol HCl (Tramadol HCl) 50 Mg Tablet, 50 MG PO Q4 PRN for PAIN, #10 TAB Prov:FATOU VALENTINO MD 10/10/18 Ibuprofen* (Motrin*) 600 Mg Tab, 600 MG PO Q6H PRN for PAIN AND OR ELEVATED TEMP, #30 TAB Prov:NATHANIEL MCKEON MD 10/03/18 Benzonatate* (Tessalon Perle*) 100 Mg Capsule, 100 MG PO Q8H PRN for COUGH, #14 CAP Prov:NIKKO MARLEY MD 09/30/18 Clotrimazole* (Clotrimazole* AF) 1% - 30 Gm Cream.gm., 1 APPLIC TOP BID for 7 Days, TUB Prov:AUSTIN MILLER PA-C 09/12/18 Ciclopirox Olamine (CICLODAN) 90 Gm Cream..g., 1 APPLIC TP DAILY for nail fungus, #1 TUB 0 Refills Prov:NIKKO BURK DO 08/09/18 Reported Medications Ibuprofen* (Ibuprofen*) 800 Mg Tablet, 800 MG PO TID TAKE 1 TABLET BY MOUTH THREE TIMES A DAY WITH FOOD 09/21/18 Aspirin (Aspirin) 81 Mg Chew, 81 MG PO DAILY CHEW 1 TABLET BY MOUTH EVERY DAY 09/21/18 Buspirone Hcl* (Buspirone Hcl*) 10 Mg Tab, 15 MG PO TID, TAB 03/21/18 Lisinopril* (Lisinopril*) 40 Mg Tablet, 40 MG PO DAILY, #30 TAB 10/26/17 Atorvastatin* (Atorvastatin*) 40 Mg Tablet, 40 MG PO QHS, #30 TAB 10/26/17 Metformin* (Glucophage*) 1,000 Mg Tablet, 1000 MG PO BID, #60 TAB 10/17/17 Allergies Allergies: Coded Allergies: latex (Unverified Allergy, Unknown, 10/21/18) PMhx/Soc History of Surgery: Yes (left hip, jaw) Anesthesia Reaction: No Hx Neurological Disorder: No Hx Respiratory Disorders: No Hx Cardiac Disorders: No Hx Psychiatric Problems: Yes (anxiety) Hx Miscellaneous Medical Probl: No (substance abuse) Hx Alcohol Use: Yes Hx Substance Use: Yes (amphetamine, marijuana) Hx Tobacco Use: Yes FmHx Family History: No diabetes Physical Exam Vitals Vital Signs Date Temp Pulse Resp B/P (MAP) Pulse Ox O2 O2 Flow FiO2 Time Delivery Rate 11/01/18 97.8 78 16 152/87 100 12:15 (108) Physical Exam Const: No acute distress Head: Atraumatic Eyes: Normal Conjunctiva ENT: Normal External Ears, Nose and Mouth. Neck: Full range of motion. No meningismus. Resp: Clear to auscultation bilaterally Cardio: Regular rate and rhythm, no murmurs Abd: Soft, non tender, non distended. Normal bowel sounds Skin: No petechiae or rashes Back: No midline or flank tenderness Ext: No cyanosis, or edema. Dry skin to the feet bilaterally. No erythema or induration or purulence or fluctuance or ulceration on either foot. Neur: Awake and alert Psych: Calm and cooperative Procedures/MDM MDM Previous medical records, if available, were reviewed. The patient presents for soreness to his feet bilaterally. He was wondering if wrapping his feet would help. I do not feel that wrapping his feet would help. The patient endorses walking a lot, which I suspect is the reason for his sore feet. The patient will be offered Tylenol or nonsteroidal medications for symptom control. I do not see any evidence of cellulitis, abscess, ulceration or any soft tissue infection. The patient may follow-up in an outpatient setting. TREATMENT/DISPOSITION The patient was offered Tylenol, ibuprofen and/or Toradol, but he refused. The patient requested Flanagan, but I do not feel that this is an appropriate treatment for his symptoms today. The patient presents to the emergency department frequently for several symptoms requesting opiate medications. I am concerned about the possibility of drug-seeking behavior. DISCHARGE Upon reevaluation of the patient, symptoms have improved. No emergent diagnoses were identified. At this time, I feel that the patient stable for discharge. The patient was instructed to follow-up with a primary care physician in 1-3 days. The patient will be given strict precautions with which to return to the emergency department. Prescriptions: None The patient's blood pressure was elevated at greater than 120/80 while in the emergency department. The patient was otherwise stable with no evidence of hypertensive urgency or emergency. The patient does not require admission for blood pressure control. I have discussed with the patient the risks of hypertension. I have instructed the patient to return to the ER for any new or worsening symptoms including chest pain, shortness of breath, headache, blurred vision, confusion, nausea, vomiting or LOC. I have advised the patient to follow up with the primary care physician for outpatient monitoring and treatment for hypertension in 1-3 days. The patient is homeless. He was offered social work consultation to be provided homeless resources in accordance with her homeless policy. The patient declined. DISCLAIMER Inadvertent spelling and grammatical errors are likely due to EHR/dictation sof tware use and do not reflect on the overall quality of patient care. Note that the electronic time recorded on this note does not necessarily reflect the actual time of the patient encounter. Departure Diagnosis: Primary Impression: Bilateral foot pain Condition: Stable Patient Instructions: Chronic Pain, Contusion, Foot Additional Instructions: Thank you for for coming to [facility] for your care today. Please ask your nurse or provider if you have questions about your care today and do not leave until all your questions have been answered. Please use any medications given as directed and follow-up with your doctor (or the doctor you were referred to) in the next 1-3 days. If you do not have a primary care doctor you may follow up at the [facility] or [facility] (listed below). You may also use motrin and tylenol as needed for fever and/or pain unless i nstructed otherwise by your provider or nurse. Indications for more urgent follow-up have been discussed, but you may return to the Emergency Department at ANY time for any worrisome or worsening symptoms. If you have abdominal pain, please know that no test or exam you received is perfect and you should follow up within 8 hours for continued pain. If you had any imaging studies today, such as an X-Ray or CT Scan, these studies will be reviewed later by a radiologist. You will be called if there are impor tant findings that were not identified today, so make sure the contact information you provided at registration is correct. If you received any narcotic pain control medicine today, such as Vicodin, Morphine or Dilaudid, your coordination and judgment may be affected for a number of hours. Please do not drive or operate heavy machinery, and you may want someone to assist you at home. If you were given a prescription for narcotic medication, be aware that it is very addictive- use sparingly and only if necessary. PLEASE SEEK FURTHER EVALUATION AND MANAGEMENT AT YOUR DOCTORS OFFICE WITHIN THE NEXT 1-3 DAYS. IT IS YOUR RESPONSIBILITY TO MAKE AN APPOINTMENT FOR FOLOW-UP CARE. IF YOU HAVE A PRIMARY DOCTOR, PLEASE CALL THEIR OFFICE TO SCHEDULE AN APPOINTMENT FOR FOLLOW UP. IF YOU DO NOT HAVE A PRIMARY DOCTOR YOU CAN CALL OUR PHYSICIAN REFERRAL HOTLINE AT IF YOU CAN NOT AFFORD TO SEE A PHYSICIAN YOU CAN CHOSE FROM THE FOLLOWING [facility] CLINICS: [employer] [address] [facility] [address] [facility] [address] [facility] [address] [facility] [address] [facility]. [facility]. [address] DALE TOM MD Nov 01, 2018 12:56
== END 2018-11-01 14:07 | disposition home or self-care (01) ==
LOC: E/R 12:09
DX: M79.671 Pain in right foot (principal); I10 Essential (primary) hypertension; E11.9 Type 2 diabetes mellitus without complications; M79.672 Pain in left foot; Z59.0 Homelessness; Z79.82 Long term (current) use of aspirin; Z79.84 Long term (current) use of oral hypoglycemic drugs; Z87.891 Personal history of nicotine dependence
CPT/HCPCS: 99282

== ENCOUNTER 2018-11-01 23:08 | Emergency (ER) | payer SELFPAY ==
[~2018-11-01] VITALS: Ht 185.4 cm; Wt 87.3 kg
[2018-11-01 23:14] VITALS: BP 119/73; PULSE 80; RESP 19; Ht 185.4 cm; Wt 87.3 kg
== END 2018-11-01 23:26 | disposition left against medical advice (07) ==
LOC: E/R 23:08
DX: Z53.21 Procedure and treatment not carried out due to patient leaving prior to being seen by health care provider (principal)

== ENCOUNTER 2018-11-04 00:31 | Emergency (ER) | payer SELFPAY | END 2018-11-04 00:36 | disposition left against medical advice (07) | LOC: E/R 00:31 | DX: Z53.21 Procedure and treatment not carried out due to patient leaving prior to being seen by health care provider (principal) ==

== ENCOUNTER 2018-11-07 18:21 | Emergency (ER) | payer OTHER ==
[~2018-11-07] VITALS: Ht 188 cm; Wt 86.5 kg
[2018-11-07 18:27] VITALS: Ht 188 cm; Wt 86.5 kg
--- NOTE | 2018-11-07 18:39 | ERD ---
ER Documentation Chief Complaint Chief Complaint hip pain x1 week stated having hip replacement surgery 2 months ago HPI This is a 49-year-old male with a history of [id number] diabetes mellitus and hypertension. 2 months ago the patient had left hip surgery. The patient indicated that for 1 week he has been having a dull achy sensation of his left hip. He does indicate he is been undergoing a significant amount of walking over the past 7 days. He said no fevers or shaking no chills. He denies any swelling of his lower extremities and no calf tenderness. No shortness of breath. He has not taken any analgesic medication. Patient denies tobacco use. From previous medical records the patient has a history of amphetamine abuse but he denies illicit drug use ROS All systems reviewed and are negative except as per history of present illness. Medications Home Meds Active Scripts Ibuprofen* (Motrin*) 600 Mg Tab, 600 MG PO Q6H PRN for PAIN AND/OR INFLAMMATION, #30 TAB Prov:DALE REBOLLEDO MD 10/26/18 Omeprazole* (Omeprazole*) 40 Mg Capsule.dr, 40 MG PO DAILY, #30 CAP Prov:LUCIA GURROLA 10/22/18 Ibuprofen* (Motrin*) 800 Mg Tab, 800 MG PO Q8 PRN for PAIN AND OR ELEVATED TEMP, #30 TAB Prov:LUCIA GURROLA 10/22/18 Naproxen* (Naprosyn*) 500 Mg Tablet, 500 MG PO BID PRN for PAIN AND/OR INFLAMMATION, #30 TAB Prov:AUSTIN MILLER PA-C 10/21/18 Clotrimazole* (Clotrimazole* AF) 1% - 30 Gm Cream.gm., 1 APPLIC TOP BID for 10 Days, TUB Prov:FATOU VALENTINO MD 10/12/18 Tramadol HCl (Tramadol HCl) 50 Mg Tablet, 50 MG PO Q4 PRN for PAIN, #10 TAB Prov:FATOU VALENTINO MD 10/10/18 Ibuprofen* (Motrin*) 600 Mg Tab, 600 MG PO Q6H PRN for PAIN AND OR ELEVATED TEMP, #30 TAB Prov:NATHANIEL MCKEON MD 10/03/18 Benzonatate* (Tessalon Perle*) 100 Mg Capsule, 100 MG PO Q8H PRN for COUGH, #14 CAP Prov:NIKKO MARLEY MD 09/30/18 Clotrimazole* (Clotrimazole* AF) 1% - 30 Gm Cream.gm., 1 APPLIC TOP BID for 7 Days, TUB Prov:AUSTIN MILLER PA-C 09/12/18 Ciclopirox Olamine (CICLODAN) 90 Gm Cream..g., 1 APPLIC TP DAILY for nail fungus, #1 TUB 0 Refills Prov:NIKKO BURK DO 08/09/18 Reported Medications Ibuprofen* (Ibuprofen*) 800 Mg Tablet, 800 MG PO TID TAKE 1 TABLET BY MOUTH THREE TIMES A DAY WITH FOOD 09/21/18 Aspirin (Aspirin) 81 Mg Chew, 81 MG PO DAILY CHEW 1 TABLET BY MOUTH EVERY DAY 09/21/18 Buspirone Hcl* (Buspirone Hcl*) 10 Mg Tab, 15 MG PO TID, TAB 03/21/18 Lisinopril* (Lisinopril*) 40 Mg Tablet, 40 MG PO DAILY, #30 TAB 10/26/17 Atorvastatin* (Atorvastatin*) 40 Mg Tablet, 40 MG PO QHS, #30 TAB 10/26/17 Metformin* (Glucophage*) 1,000 Mg Tablet, 1000 MG PO BID, #60 TAB 10/17/17 Allergies Allergies: Coded Allergies: latex (Unverified Allergy, Unknown, 10/21/18) PMhx/Soc History of Surgery: Yes (left hip, jaw) Anesthesia Reaction: No Hx Neurological Disorder: No Hx Respiratory Disorders: No Hx Cardiac Disorders: No Hx Psychiatric Problems: Yes (anxiety) Hx Miscellaneous Medical Probl: No (substance abuse) Hx Alcohol Use: Yes Hx Substance Use: Yes (amphetamine, marijuana) Hx Tobacco Use: Yes Physical Exam Vitals Vital Signs Date Temp Pulse Resp B/P (MAP) Pulse Ox O2 O2 Flow FiO2 Time Delivery Rate 11/07/18 97.0 88 16 141/80 100 18:27 (100) Physical Exam Constitutional:Well-developed. Well-nourished. Respiratory: Not using accessory muscles of respiration.Lungs were clear to auscultation bilaterally. No rhonchi. No rales. No wheezing. Cardiovascular: Regular rate regular rhythm.No murmurs. No rubs were appreciated.S1, S2 normal. Distal pulses are palpable 2+ bilaterally. GI: Abdomen was soft. Nontender. Non Distended. No pulsatile abdominal masses or bruits. No rebound. No guarding. Bowel sounds were present and normal. Muscle skeletal: Full range of motion of both the upper and lower extremities bilaterally.Normal muscle tone.No assymetrical calf tenderness or swelling. Surgical incision scar on the left lateral aspect of the hip was clean dry and intact. Lower extreme is are of equal length and symmetrical no internal or external rotation. Soft tissue swelling or tenderness over the left surgical site which appeared to be well-healing with no granulation tissue and an old scar. Skin: No petechia, no purpura. No lesions on the palms or the soles of the feet. No maculopapular rash. NEURO: Patient was alert, awake, orientated x3.No facial droop. Gait observed and normal with no ataxia.Speech had regular rate and rhythm. No focal neurological deficits. Results 24 hrs Laboratory Tests Test 11/07/18 18:31 Bedside Glucose 174 mg/dL Current Medications Medications Dose Sig/[place] Start Time Status Last (Trade) Ordered Route PRN Stop Time Admin Dose Reason Admin Ibuprofen 800 mg ONCE ONCE 11/07/18 (Motrin) PO 19:00 11/07/18 19:01 Procedures/MDM This is a 43-year-old male that has had multiple previous emergency room visits and often leaves without being seen or elopes. The patient's Accu-Chek was normal. Patient was given Motrin. I felt this is muscle skeletal in nature. The patient had no physical exam findings to suggest necrotizing fasciitis. No physical exam findings to suggest a fracture or dislocation. The patient was discharged home in fair condition. They were instructed to return to the emergency department at any time if there was any worsening of their condition. The patient stated they would follow up with their PCP in the next 24-48 hours to initiate a suitable medication regimen under the care of their PCP as well as to allow their PCP to monitor any drug reactions. The patient was discharged home with prescriptions after they gave informed consent to the new medication. They were also fully informed by myself on the adverse effects and adverse drug interactions in order to provide adequate safeguards to prevent possible adverse reactions to medications. Departure Diagnosis: Primary Impression: Hip pain Laterality: left Qualified Codes: M25.552 - Pain in left hip Condition: Fair JI LIRA MD Nov 07, 2018 18:39
[2018-11-07 18:46] VITALS: BP 136/74; PULSE 78; RESP 16
[2018-11-07] MEDS ORDERED: IBUPROFEN 800 MG TAB PO ONE (19:00)
== END 2018-11-07 18:46 | disposition home or self-care (01) ==
LOC: E/R 18:21
DX: M25.552 Pain in left hip (principal); E11.9 Type 2 diabetes mellitus without complications; I10 Essential (primary) hypertension; Z87.891 Personal history of nicotine dependence; Z79.84 Long term (current) use of oral hypoglycemic drugs
CPT/HCPCS: 82962; Z7502; Z7610; 99282

== ENCOUNTER 2018-11-10 00:32 | Emergency (ER) | payer OTHER ==
[~2018-11-10] VITALS: Ht 193 cm; Wt 83.6 kg
[2018-11-10 00:34] VITALS: BP 156/86; PULSE 57; RESP 18; Ht 193 cm; Wt 83.6 kg
[2018-11-10] MEDS ORDERED: DIPHENHYDRAMINE 25 MG CAP ONE (02:53)
[2018-11-10] MEDS ORDERED: FAMOTIDINE 20 MG TAB ONE (02:54)
[2018-11-10] MEDS ORDERED: predniSONE 20 MG TAB ONE (02:54)
== END 2018-11-10 04:51 | disposition home or self-care (01) ==
LOC: FTE 00:32
DX: T63.441A Toxic effect of venom of bees, accidental (unintentional), initial encounter (principal); F19.10 Other psychoactive substance abuse, uncomplicated; I10 Essential (primary) hypertension; E11.9 Type 2 diabetes mellitus without complications; F17.210 Nicotine dependence, cigarettes, uncomplicated; Z79.82 Long term (current) use of aspirin; Z79.84 Long term (current) use of oral hypoglycemic drugs
CPT/HCPCS: 99282; J7512

== ENCOUNTER 2018-11-12 00:10 | Emergency (ER) | payer SELFPAY ==
[~2018-11-12] VITALS: Ht 185.4 cm; Wt 87.2 kg
[2018-11-12 00:23] VITALS: BP 137/88; PULSE 83; RESP 16; Ht 185.4 cm; Wt 87.2 kg
== END 2018-11-12 01:54 | disposition left against medical advice (07) ==
LOC: FTE 00:10
DX: Z53.21 Procedure and treatment not carried out due to patient leaving prior to being seen by health care provider (principal)

== ENCOUNTER 2018-11-12 04:26 | Emergency (ER) | payer OTHER ==
[~2018-11-12] VITALS: Ht 185.4 cm; Wt 85.7 kg
[2018-11-12 04:27] VITALS: BP 152/85; PULSE 82; RESP 16; Ht 185.4 cm; Wt 85.7 kg
[2018-11-12] MEDS ORDERED: IBUPROFEN 800 MG TAB PO ONE (06:00)
[2018-11-12] MEDS ORDERED: FAMOTIDINE 20 MG TAB PO ONE (06:00)
== END 2018-11-12 05:57 | disposition home or self-care (01) ==
LOC: FTE 04:26
DX: M72.2 Plantar fascial fibromatosis (principal); G89.29 Other chronic pain; F17.210 Nicotine dependence, cigarettes, uncomplicated; I10 Essential (primary) hypertension; E11.9 Type 2 diabetes mellitus without complications; Z79.82 Long term (current) use of aspirin; Z79.84 Long term (current) use of oral hypoglycemic drugs
CPT/HCPCS: 93005; Z7502; Z7610

== ENCOUNTER 2018-11-12 22:40 | Emergency (ER) | payer SELFPAY ==
[~2018-11-12] VITALS: Ht 190.5 cm; Wt 83.9 kg
[2018-11-12 22:43] VITALS: BP 170/91; PULSE 81; RESP 16; Ht 190.5 cm; Wt 83.9 kg
== END 2018-11-12 23:30 | disposition left against medical advice (07) ==
LOC: E/R 22:40
DX: Z53.21 Procedure and treatment not carried out due to patient leaving prior to being seen by health care provider (principal)

== ENCOUNTER 2018-11-16 12:25 | Emergency (ER) | payer OTHER ==
[~2018-11-16] VITALS: Wt 90.0 kg
[2018-11-16 12:36] VITALS: BP 129/79; PULSE 79; RESP 18
== END 2018-11-16 12:57 | disposition home or self-care (01) ==
LOC: FTE 12:25 → E/R 12:57
DX: M79.605 Pain in left leg (principal); E11.9 Type 2 diabetes mellitus without complications; I10 Essential (primary) hypertension; Z79.82 Long term (current) use of aspirin; Z79.84 Long term (current) use of oral hypoglycemic drugs; Z87.891 Personal history of nicotine dependence
CPT/HCPCS: 99282

== ENCOUNTER 2018-11-17 13:04 | Emergency (ER) | payer SELFPAY | END 2018-11-17 13:27 | disposition left against medical advice (07) | LOC: E/R 13:04 | DX: Z53.21 Procedure and treatment not carried out due to patient leaving prior to being seen by health care provider (principal) ==

== ENCOUNTER 2018-11-21 01:08 | Emergency (ER) | payer SELFPAY ==
[~2018-11-21] VITALS: Ht 188 cm; Wt 87.7 kg
[2018-11-21 01:11] VITALS: BP 169/104; PULSE 81; RESP 20; Ht 188 cm; Wt 87.7 kg
== END 2018-11-21 02:00 | disposition left against medical advice (07) ==
LOC: E/R 01:08
DX: Z53.21 Procedure and treatment not carried out due to patient leaving prior to being seen by health care provider (principal)

== ENCOUNTER 2018-11-23 00:28 | Emergency (ER) | payer OTHER ==
[~2018-11-23] VITALS: Ht 190.5 cm; Wt 87.3 kg
[2018-11-23 00:30] VITALS: BP 156/92; PULSE 86; RESP 16; Ht 190.5 cm; Wt 87.3 kg
[2018-11-23] MEDS ORDERED: ASPIRIN (EC) 325 MG TAB PO ONE (01:30)
== END 2018-11-23 03:41 | disposition left against medical advice (07) ==
LOC: FTE 00:28
DX: M79.602 Pain in left arm (principal); R07.9 Chest pain, unspecified; E11.9 Type 2 diabetes mellitus without complications; F17.210 Nicotine dependence, cigarettes, uncomplicated; Z79.82 Long term (current) use of aspirin; Z79.84 Long term (current) use of oral hypoglycemic drugs
CPT/HCPCS: 80048; 84484; 85025; 93005; Z7502; Z7610

== ENCOUNTER 2018-11-26 07:05 | Emergency (ER) | payer OTHER ==
[~2018-11-26] VITALS: Ht 185.4 cm; Wt 89.0 kg
[2018-11-26 07:07] VITALS: BP 140/78; PULSE 89; RESP 18; Ht 185.4 cm; Wt 89.0 kg
[2018-11-26] MEDS ORDERED: IBUPROFEN 800 MG TAB PO ONE (07:30)
== END 2018-11-26 08:04 | disposition home or self-care (01) ==
LOC: FTE 07:05
DX: M79.605 Pain in left leg (principal); E11.9 Type 2 diabetes mellitus without complications; F17.210 Nicotine dependence, cigarettes, uncomplicated; M79.604 Pain in right leg; Z79.84 Long term (current) use of oral hypoglycemic drugs; Z79.82 Long term (current) use of aspirin
CPT/HCPCS: Z7502; Z7610; 99282

== ENCOUNTER 2018-11-26 13:46 | Emergency (ER) | payer OTHER ==
[~2018-11-26] VITALS: Ht 182.9 cm; Wt 90.8 kg
[2018-11-26 13:50] VITALS: BP 147/91; PULSE 67; RESP 16; Ht 182.9 cm; Wt 90.8 kg
== END 2018-11-26 14:10 | disposition left against medical advice (07) ==
LOC: E/R 13:46
DX: M79.671 Pain in right foot (principal); Z79.82 Long term (current) use of aspirin; Z87.891 Personal history of nicotine dependence
CPT/HCPCS: 99282

== ENCOUNTER 2018-11-27 03:15 | Emergency (ER) | payer SELFPAY ==
[~2018-11-27] VITALS: Ht 190.5 cm; Wt 90.7 kg
[2018-11-27 03:18] VITALS: BP 169/66; PULSE 76; RESP 16; Ht 190.5 cm; Wt 90.7 kg
== END 2018-11-27 04:02 | disposition left against medical advice (07) ==
LOC: E/R 03:15
DX: Z53.21 Procedure and treatment not carried out due to patient leaving prior to being seen by health care provider (principal)

== ENCOUNTER 2018-11-29 20:49 | Emergency (ER) | payer OTHER ==
[~2018-11-29] VITALS: Ht 182.9 cm; Wt 91.3 kg
[2018-11-29 20:56] VITALS: Ht 182.9 cm; Wt 91.3 kg
[2018-11-29] MEDS ORDERED: KETOROLAC 15 MG INJ IM STA (21:02)
[2018-11-29 21:16] VITALS: BP 138/76; PULSE 89; RESP 18
== END 2018-11-29 21:16 | disposition home or self-care (01) ==
LOC: E/R 20:49
DX: M79.10 Myalgia, unspecified site (principal); T73.0XXS Starvation, sequela; F17.210 Nicotine dependence, cigarettes, uncomplicated; I10 Essential (primary) hypertension; E11.9 Type 2 diabetes mellitus without complications; Z79.82 Long term (current) use of aspirin; Z79.84 Long term (current) use of oral hypoglycemic drugs; Z91.040 Latex allergy status
CPT/HCPCS: 96372; J1885; Z7502

== ENCOUNTER 2018-12-02 20:00 | Emergency (ER) | payer OTHER ==
[~2018-12-02] VITALS: Ht 182.9 cm; Wt 91.3 kg
[~2018-12-02 20:00] MED LIST changes: +ACET500C5 PO; +OMEP40CA38 PO; -OMEP40CA6 PO
[2018-12-02 20:10] VITALS: BP 134/95; PULSE 105; RESP 18; Ht 182.9 cm; Wt 91.3 kg
== END 2018-12-02 20:14 | disposition home or self-care (01) ==
LOC: E/R 20:00
DX: J06.9 Acute upper respiratory infection, unspecified (principal); F17.210 Nicotine dependence, cigarettes, uncomplicated; Z79.82 Long term (current) use of aspirin; Z79.84 Long term (current) use of oral hypoglycemic drugs
CPT/HCPCS: 99282

== ENCOUNTER 2018-12-06 20:24 | Emergency (ER) | payer OTHER ==
[~2018-12-06] VITALS: Ht 182.9 cm; Wt 90.0 kg
[2018-12-06 20:26] VITALS: BP 161/88; PULSE 85; RESP 18; Ht 182.9 cm; Wt 90.0 kg
[2018-12-06] MEDS ORDERED: IBUPROFEN 800 MG TAB PO ONE (21:00)
== END 2018-12-06 21:03 | disposition home or self-care (01) ==
LOC: FTE 20:24
DX: K08.89 Other specified disorders of teeth and supporting structures (principal); F17.210 Nicotine dependence, cigarettes, uncomplicated; E11.9 Type 2 diabetes mellitus without complications; Z79.82 Long term (current) use of aspirin; Z79.84 Long term (current) use of oral hypoglycemic drugs; Z91.040 Latex allergy status
CPT/HCPCS: Z7502; Z7610; 99282

== ENCOUNTER 2018-12-07 22:22 | Emergency (ER) | payer SELFPAY ==
[~2018-12-07] VITALS: Ht 193 cm; Wt 89.3 kg
[2018-12-07 22:25] VITALS: BP 168/92; PULSE 71; RESP 16; Ht 193 cm; Wt 89.3 kg
== END 2018-12-07 23:16 | disposition left against medical advice (07) ==
LOC: E/R 22:22
DX: Z53.21 Procedure and treatment not carried out due to patient leaving prior to being seen by health care provider (principal)
CPT/HCPCS: 93005

== ENCOUNTER 2018-12-08 05:25 | Emergency (ER) | payer OTHER ==
[~2018-12-08] VITALS: Ht 193 cm; Wt 84.3 kg
[2018-12-08 05:29] VITALS: BP 153/103; PULSE 85; RESP 16; Ht 193 cm; Wt 84.3 kg
[2018-12-08] MEDS ORDERED: IBUPROFEN 600 MG TAB PO ONE (06:00)
== END 2018-12-08 05:56 | disposition home or self-care (01) ==
LOC: E/R 05:25
DX: R07.9 Chest pain, unspecified (principal)
CPT/HCPCS: 93005; Z7502; Z7610

== ENCOUNTER 2018-12-11 01:47 | Emergency (ER) | payer OTHER ==
[~2018-12-11] VITALS: Ht 193 cm; Wt 84.3 kg
[2018-12-11 01:49] VITALS: Ht 193 cm; Wt 84.3 kg
[2018-12-11] MEDS ORDERED: IBUPROFEN 800 MG TAB PO ONE (02:00)
[2018-12-11 02:36] VITALS: BP 139/88; PULSE 89; RESP 18
== END 2018-12-11 02:36 | disposition home or self-care (01) ==
LOC: E/R 01:47
DX: T85.848A Pain due to other internal prosthetic devices, implants and grafts, initial encounter (principal); G89.29 Other chronic pain; F17.210 Nicotine dependence, cigarettes, uncomplicated; Y82.8 Other medical devices associated with adverse incidents; Z76.5 Malingerer [conscious simulation]; Z79.82 Long term (current) use of aspirin; Z79.84 Long term (current) use of oral hypoglycemic drugs
CPT/HCPCS: Z7502; Z7610; 99282

== ENCOUNTER 2018-12-18 03:32 | Emergency (ER) | payer OTHER ==
[~2018-12-18] VITALS: Ht 190.5 cm; Wt 83.4 kg
[2018-12-18 03:44] VITALS: BP 146/79; PULSE 78; RESP 16; Ht 190.5 cm; Wt 83.4 kg
== END 2018-12-18 04:55 | disposition left against medical advice (07) ==
LOC: E/R 03:32
DX: M79.10 Myalgia, unspecified site (principal); R10.9 Unspecified abdominal pain; I10 Essential (primary) hypertension; E11.9 Type 2 diabetes mellitus without complications; F17.210 Nicotine dependence, cigarettes, uncomplicated; Z59.0 Homelessness; Z79.82 Long term (current) use of aspirin; Z79.84 Long term (current) use of oral hypoglycemic drugs; Z91.040 Latex allergy status
CPT/HCPCS: 99283

== ENCOUNTER 2019-01-20 22:41 | Emergency (ER) | payer OTHER ==
[~2019-01-20] VITALS: Ht 182.9 cm; Wt 88.0 kg
[2019-01-20 22:43] VITALS: BP 158/80; PULSE 65; RESP 22; Ht 182.9 cm; Wt 88.0 kg
[2019-01-20] MEDS ORDERED: IBUPROFEN 800 MG TAB PO ONE (23:00)
== END 2019-01-20 23:10 | disposition home or self-care (01) ==
LOC: E/R 22:41
DX: G89.29 Other chronic pain (principal); Z76.5 Malingerer [conscious simulation]
CPT/HCPCS: Z7502; Z7610; 99282

== ENCOUNTER 2019-01-21 23:53 | Emergency (ER) | payer OTHER ==
[~2019-01-21] VITALS: Ht 193 cm; Wt 84.3 kg
[2019-01-22 00:03] VITALS: Ht 193 cm; Wt 84.3 kg
[2019-01-22 00:21] VITALS: BP 136/81; PULSE 62; RESP 20
[2019-01-22] MEDS ORDERED: IBUPROFEN 600 MG TAB PO ONE (00:30)
== END 2019-01-22 00:22 | disposition home or self-care (01) ==
LOC: E/R 23:53
DX: M54.9 Dorsalgia, unspecified (principal); F17.210 Nicotine dependence, cigarettes, uncomplicated; Z91.040 Latex allergy status; Z79.84 Long term (current) use of oral hypoglycemic drugs; Z79.82 Long term (current) use of aspirin
CPT/HCPCS: Z7502; Z7610; 99282

== ENCOUNTER 2019-01-25 13:27 | Emergency (ER) | payer OTHER ==
[~2019-01-25] VITALS: Ht 182.9 cm; Wt 75.0 kg
[2019-01-25 13:35] VITALS: BP 142/78; PULSE 99; RESP 18; Ht 182.9 cm; Wt 75.0 kg
== END 2019-01-25 13:42 | disposition home or self-care (01) ==
LOC: E/R 13:27
DX: M54.5 Low back pain (principal); F17.210 Nicotine dependence, cigarettes, uncomplicated; Z79.82 Long term (current) use of aspirin; Z79.84 Long term (current) use of oral hypoglycemic drugs; Z91.040 Latex allergy status
CPT/HCPCS: 99282

== ENCOUNTER 2019-01-27 08:44 | Emergency (ER) | payer OTHER ==
[~2019-01-27] VITALS: Ht 182.9 cm; Wt 95.5 kg
[2019-01-27 08:46] VITALS: BP 155/86; PULSE 77; RESP 20; Ht 182.9 cm; Wt 95.5 kg
== END 2019-01-27 09:05 | disposition home or self-care (01) ==
LOC: E/R 08:44
DX: Z59.0 Homelessness (principal); E11.9 Type 2 diabetes mellitus without complications; Z79.82 Long term (current) use of aspirin; Z79.84 Long term (current) use of oral hypoglycemic drugs
CPT/HCPCS: 99282

== ENCOUNTER 2019-01-27 23:22 | Emergency (ER) | payer SELFPAY ==
[~2019-01-27] VITALS: Ht 182.9 cm; Wt 89.9 kg
[2019-01-27 23:25] VITALS: BP 141/79; PULSE 79; RESP 18; Ht 182.9 cm; Wt 89.9 kg
== END 2019-01-27 23:50 | disposition left against medical advice (07) ==
LOC: E/R 23:22
DX: Z53.21 Procedure and treatment not carried out due to patient leaving prior to being seen by health care provider (principal)